=== PATIENT | male | born 1970 | race Caucasian/White ===

== ENCOUNTER 2019-03-31 12:09 | Inpatient (IN) | payer BC ==
[~2019-03-31] VITALS: Ht 182.9 cm; Wt 92.1 kg
[2019-03-31 14:48] VITALS: BP 135/92
--- NOTE | 2019-03-31 14:54 | NUR ---
Patient arrived to [facility] at 1440. Very pleasant, A&O x 4, VS obtained, at bedside. Text page sent to PCP to announce pt.'s arrival. Will continue to monitor.
[2019-03-31] MEDS ORDERED: ACETAMINOPHEN 325 MG TABLET. PO PRN (15:30)
[2019-03-31] MEDS ORDERED: METHOCARBAMOL 500 MG TABLET PO PRN (15:30)
[2019-03-31] MEDS ORDERED: PSEUDOEPHEDRINE ER 120 MG TABLET.ER. PO PRN (15:30)
[2019-03-31] MEDS ORDERED: PIP/TAZO PER PHARMACY MC PRN (15:30)
[2019-03-31] MEDS ORDERED: ONDANSETRON PF 4 MG/2 ML VIAL. IV PRN (15:30)
[2019-03-31] MEDS ORDERED: ALBUTEROL SULFATE 2.5 MG/3 ML NEBU. NEB PRN (15:30)
[2019-03-31] MEDS ORDERED: HEPARIN for SUB-Q USE 5,000 UNIT/ML VIAL. SQ SCH (16:00)
[2019-03-31] MEDS ORDERED: IPRATRPIUM/ALBUTEROL 0.5/2.5MG 3 ML NEBU. NEB SCH (16:00)
[2019-03-31] MEDS: VANCOMYCIN PER PHARMACY MC PRN (16:23)
--- NOTE | 2019-03-31 16:28 | NUR ---
Pharmacy Vancomycin Dosing Note S:Consulted to monitor and dose vancomycin started 03/27/19. O:LILO HYATT is a 48 year old M with Pneumonia . Height: feet, inches Weight: kg [place] Body Weight: 77.60 Adjusted Body Weight: 86.00 Dosing Weight: Other Antibiotics: LABS: Last BUN: 11 Last Creatinine: 1.1 Creatinine Clearance: 97.7 mL/min Last WBC: 13.8 Last Procalcitonin: <0.10 Tmax (past 24 hours): 98.9 Microbiology: GRAM STAIN WHITE BLOOD CELLS Final None seen GRAM STAIN EPITHELIAL CELLS Final Few GRAM STAIN RESULT 1 Final Comment Moderate amount of yeast seen. GRAM STAIN RESULT 2 Final Comment Few gram positive cocci GRAM STAIN RESULT 3 Final Comment Few gram positive rods. GRAM STAIN RESULT 4 Final Comment Gram negative coccobacilli GRAM STAIN EVALUATION Final Comment This specimen is of good quality and is acceptable for routine bacterial culture. I/O: 2286/ Drug Levels: Last Trough level: 18.3 on 03/31/19 at 0430 Last dose given 03/31/19 at 1329 Vancomycin Dosing: Loading Dose: x1 Dosing Weight: Target Trough: 15-20 A: Based on previous therapy and trough levels obtained from [facility]: P: 1. Continue Vancomycin 1500 mg IV q8h. 2. Follow up trough levels as needed. 3. Pharmacy will continue to monitor, follow and adjust therapy as needed. Kalpesh Argueta [facility], 03/31/19 [id number]
[2019-03-31] MEDS: PANTOPRAZOLE 40 MG TABLET.DR. PO SCH (16:30)
--- NOTE | 2019-03-31 16:48 | PDOC1 ---
History and Physical Date of Admission Date of Admission DATE: 03/31/19 TIME: 16:46 History of Present Illness History of Present Illness Mr. Bailey has been not feeling well for over 2 months. He had recent pneumonia, and was hospitalized at [facility], sent home and returned for IV abx, IV cefepime BID for 1 week, never really felt well, and then was readmitted to [facility] 4 days ago, with cough and dyspnea with fever and chills. 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 he feels a little better after breathing treatments Past Medical History Cardiovascular: No pertinent hx Pulmonary: Asthma, Bronchitis, COPD GI: No pertinent hx Heme/Onc: No pertinent hx Hepatobiliary: No pertinent hx Psych: No pertinent hx Musculoskeletal: low back pain Rheumatologic: No pertinent hx Past Surgical History Past Surgical History: Other (spinal stimulator for pain) Family History Family History: No Significant Social History Smoke: No ALCOHOL: none Drugs: None Current Medications Current Medications Current Medications Acetaminophen (Tylenol) 650 mg PRN Q6HRS PRN PO MILD PAIN 1-3; Start 03/31/19 at 15:30 Albuterol Sulfate (Ventolin Neb Soln) 2.5 mg PRN Q4HRS PRN NEB SHORTNESS OF BREATH; Start 03/31/19 at 15:30 Benzonatate (Tessalon Perle) 100 mg PRN TID PRN PO cough; Start 03/31/19 at 15:30 Cetirizine HCl (ZyrTEC) 5 mg DAILY PO ; Start 04/01/19 at 09:00 Heparin Sodium (Porcine) (Heparin Sodium) 5,000 unit Q8HRS SQ ; Start 03/31/19 at 16:00 Albuterol/ Ipratropium (Duoneb) 3 ml RTQID NEB ; Start 03/31/19 at 16:00; Stop 03/31/19 at 16:23; Status DC Lactobacillus Rhamnosus (Culturelle) 1 cap BID PO ; Start 03/31/19 at 21:00 Meloxicam (Mobic) 7.5 mg DAILY PO ; Start 04/01/19 at 09:00 Methocarbamol (Robaxin) 500 mg PRN Q8HRS PRN PO MUSCLE SPASMS; Start 03/31/19 at 15:30 Ondansetron HCl (Zofran) 4 mg PRN Q8HRS PRN IV NAUSEA/VOMITING; Start 03/31/19 at 15:30 Pantoprazole Sodium (Protonix) 40 mg DAILYAC PO ; Start 03/31/19 at 16:30 Piperacillin Sod/ Tazobactam Sod (Zosyn Per Pharmacy) 1 each PRN DAILY PRN MC SEE COMMENTS; Start 03/31/19 at 15:30 Pseudoephedrine HCl (Sudafed 12-Hour) 120 mg PRN QHS PRN PO NASAL CONGESTION; Start 03/31/19 at 15:30 Vancomycin HCl (Vanco Per Pharmacy) 1 each PRN DAILY PRN MC SEE COMMENTS Last administered on 03/31/19at 16:23; Start 03/31/19 at 15:30 Guaifenesin (Mucinex) 600 mg BID PO ; Start 03/31/19 at 21:00 Methylprednisolone Sodium Succinate (SOLU-Medrol 125MG VIAL) 60 mg BID76 IV ; Start 03/31/19 at 18:00 Tramadol HCl (Ultram) 100 mg PRN Q6HRS PRN PO MODERATE PAIN; Start 03/31/19 at 15:30 Trazodone HCl (Desyrel) 200 mg PRN QHS PRN PO INSOMNIA; Start 03/31/19 at 15:30 Piperacillin Sod/ Tazobactam Sod 4.5 gm/Sodium Chloride 100 ml @ 200 mls/hr Q6HRS IV ; Start 03/31/19 at 18:00 Vancomycin HCl 1.5 gm/Sodium Chloride 500 ml @ 250 mls/hr Q8H IV ; Start 03/31/19 at 21:00 Albuterol/ Ipratropium (Duoneb) 3 ml Q4HRS W/A NEB ; Start 03/31/19 at 18:00 Allergies Allergies: Coded Allergies: morphine (Verified Adverse Reaction, Intermediate, Vomiting. Almost passed out., 03/31/19) ROS General: No: Chills, Night Sweats, Fatigue, Malaise, Appetite, Other PSYCHOLOGICAL ROS: No: Anxiety, Behavioral Disorder, Concentration difficultie, Decreased libido, Depression, Disorientation, Hallucinations, Hostility, Irritablity, Memory difficulties, Mood Swings, Obsessive thoughts, Physical abuse, Sexual abuse, Sleep disturbances, Suicidal ideation, Other Eyes: No Blurry vision, No Decreased vision, No Double vision, No Dry eyes, No Excessive tearing, No Eye Pain, No Itchy Eyes, No Loss of vision, No Photophobia, No Scotomata, No Uses contacts, No Uses glasses, No Other HEENT: No: Heacaches, Visual Changes, Hearing change, Nasal congestion, Nasal discharge, Oral lesions, Sinus pain, Sore Throat, Epistaxis, Sneezing, Snoring, Tinnitus, Vertigo, Vocal changes, Other Respiratory: No: Cough, Hemoptysis, Orthopnea, Pleuritic Pain, Shortness of breath, SOB with excertion, Sputum Changes, Stridor, Tachypnea, Wheezing, Other Cardiovascular: No Chest Pain, No Palpitations, No Orthopnea, No Paroxysmal Noc. Dyspnea, No Edema, No Lt Headedness, No Other Gastrointestinal: No Nausea, No Vomiting, No Abdominal Pain, No Diarrhea, No Constipation, No Melena, No Hematochezia, No Other Genitourinary: No Dysuria, No Frequency, No Incontinence, No Hematuria, No Retention, No Discharge, No Urgency, No Pain, No Flank Pain, No Other, No , No , No , No , No , No , No Musculoskeletal: No Gait Disturbance, No Joint Pain, No Joint Stiffness, No Joint Swelling, No Muscle Pain, No Muscular Weakness, No Pain In:, No Swelling In:, No Other Neurological: No Behavorial Changes, No Bowel/Bladder ControlChng, No Confusion, No Dizziness, No Gait Disturbance, No Headaches, No Impaired Coord/balance, No Memory Loss, No Numbness/Tingling, No Seizures, No Speech Problems, No Tremors, No Visual Changes, No Weakness, No Other Skin: No Dry Skin, No Eczema, No Hair Changes, No Lumps, No Mole Changes, No Mottling, No Nail Changes, No Pruritus, No Rash, No Skin Lesion Changes, No Other, No Acne Physical Exam General: Alert, Oriented X3, mild distress HEENT: EOMI, Mucous membr. moist/pink Lungs: Other (rales, end wheeze, low volume, ) Heart: no gallops, no murmurs Rectal Exam: not examined Extremities: No clubbing, No cyanosis, No edema, Normal pulses Skin: No rashes, No breakdown, No significant lesion Neuro: Normal speech, Strength at 5/5 X4 ext, Normal tone, Sensation intact Psych/Mental Status: Mental status NL, Mood NL Vitals Vitals Vital Signs Date Time Temp Pulse Resp B/P (MAP) Pulse Ox O2 Delivery O2 Flow Rate FiO2 03/31/19 16:34 92 Nasal Cannula 3.0 03/31/19 14:48 99.0 106 22 135/92 (106) 99.0 VTE Prophylaxis Ordered VTE Prophylaxis Devices: No VTE Pharmacological Prophylaxi: Yes Assessment/Plan Assessment/Plan acute hypoxic respiratory failure pneumonia, recurrent and worsening, will add levaquin for HCAP coverage COPD with acute bronchitis, nebs and steroids sepsis, accepted in transfer from [facility] GIANA BALLARD MD March 31, 2019 16:48
[2019-03-31] MEDS: guaiFENesin/CODEINE 100mg/10mg 5 ML LIQUID PO PRN (18:08)
[2019-03-31] MEDS: BENZONATATE 100 MG CAPSULE. PO PRN (18:09)
[2019-03-31] MEDS: methylPREDNISolone SOD SUCC PF 125 MG/2 ML VIAL. IV SCH (18:14)
[2019-03-31] MEDS: PIPERACILLIN/TAZOBACTAM 4.5 GM in IV NORMAL SALINE 100ML 100 ML IV SCH (18:16)
[2019-03-31 19:15] VITALS: BP 140/88
[2019-03-31] MEDS ORDERED: ENOXAPARIN 40 MG/0.4 ML SYRINGE. SQ SCH (20:00)
[2019-03-31] MEDS: IPRATRPIUM/ALBUTEROL 0.5/2.5MG 3 ML NEBU. NEB SCH ×2 (21:35→22:00)
[2019-03-31] MEDS: LINEZOLID 600 MG TABLET PO SCH (21:50)
[2019-03-31] MEDS: LACTOBACILLUS RHAMNOSUS GG 1 CAPSULE. PO SCH ×2 (21:50→22:04)
[2019-03-31] MEDS: VANCOMYCIN 1.5 GM in IV NORMAL SALINE 500ML BAG 500 ML IV SCH (22:04)
[2019-03-31] MEDS: traMADol 50 MG TABLET PO PRN (22:07)
[2019-03-31] MEDS: traZODone 100 MG TABLET. PO PRN (22:08)
[2019-03-31 23:15] VITALS: BP 135/84
[2019-04-01] MEDS: BENZONATATE 100 MG CAPSULE. PO PRN ×3 (02:24→21:33)
[2019-04-01] MEDS: guaiFENesin/CODEINE 100mg/10mg 5 ML LIQUID PO PRN ×4 (02:24→21:33)
[2019-04-01] MEDS: PIPERACILLIN/TAZOBACTAM 4.5 GM in IV NORMAL SALINE 100ML 100 ML IV SCH ×4 (02:25→17:35)
[2019-04-01 03:20] VITALS: BP 149/94
[2019-04-01 04:13] LABS: BASO % 0 % (0-3); EOS % 0 % (0-3); HEMATOCRIT 35.4 % (39.0-53.0); HEMOGLOBIN 11.7 g/dL (13.0-17.5); LYMPH # 0.9 x10^3/uL (1.0-4.8); LYMPH % 7 % (24-48); MEAN CORPUSCULAR HEMOGLOBIN 30 pg (25-35); MEAN CORPUSCULAR HGB CONC 33 g/dL (31-37); MEAN CORPUSCULAR VOLUME 91 fL (79-100); MONO # 0.6 x10^3/uL (0.0-1.1); MONO % 5 % (0-9); NEUT # 10.7 x10^3uL (1.8-7.7); NEUT % 87 % (31-73); PLATELET COUNT 360 x10^3/uL (140-400); RED BLOOD COUNT 3.89 x10^6/uL (4.30-5.70); RED CELL DISTRIBUTION WIDTH 13.2 % (11.5-14.5); WHITE BLOOD COUNT 12.2 x10^3/uL (4.0-11.0)
[2019-04-01 04:32] LABS: ALBUMIN/GLOBULIN RATIO 0.4 (1.0-1.7); CALCIUM 8.3 mg/dL (8.5-10.1); CREATININE 1.1 mg/dL (0.7-1.3); GFR 70.9; POTASSIUM 3.4 mmol/L (3.5-5.1); TOTAL BILIRUBIN 0.4 mg/dL (0.2-1.0); TOTAL PROTEIN 6.7 g/dL (6.4-8.2)
[2019-04-01] MEDS: VANCOMYCIN 1.5 GM in IV NORMAL SALINE 500ML BAG 500 ML IV SCH (05:39)
[2019-04-01] MEDS: methylPREDNISolone SOD SUCC PF 125 MG/2 ML VIAL. IV SCH ×2 (05:50→17:35)
[2019-04-01 07:00] VITALS: BP 143/87
--- NOTE | 2019-04-01 07:40 | RAD ---
Portable chest, 03/31/2019, 5:37 PM: HISTORY: Pneumonia Comparison is made to an outside study from earlier in the day. The heart size is normal. There are moderate patchy bilateral pulmonary infiltrates. Underlying emphysematous changes are present. No pleural fluid is seen. No new abnormality is detected. Spinal stimulator lead extending to the lower thoracic spinal canal. IMPRESSION: Moderate unchanged patchy bilateral pulmonary infiltrates compatible with pneumonia. Electronically signed by: Italo Hernandez MD (04/01/2019 7:37 AM) [facility]
[2019-04-01] MEDS: LACTOBACILLUS RHAMNOSUS GG 1 CAPSULE. PO SCH (08:24)
[2019-04-01] MEDS: MELOXICAM 7.5 MG TABLET PO SCH (08:25)
[2019-04-01] MEDS: PANTOPRAZOLE 40 MG TABLET.DR. PO SCH (08:25)
[2019-04-01] MEDS: traMADol 50 MG TABLET PO PRN ×4 (08:25→21:50)
[2019-04-01] MEDS: CETIRIZINE HCL 10 MG TABLET. PO SCH (08:26)
[2019-04-01] MEDS: IPRATRPIUM/ALBUTEROL 0.5/2.5MG 3 ML NEBU. NEB SCH ×5 (08:35→20:47)
[2019-04-01] MEDS: VANCOMYCIN PER PHARMACY MC PRN (09:39)
[2019-04-01] MEDS ORDERED: POTASSIUM CHLORIDE 20 MEQ TABLET.ER. PO ONE (10:00)
--- NOTE | 2019-04-01 10:03 | CONS ---
DATE OF CONSULTATION: 04/01/2019 PULMONARY CONSULTATION: ATTENDING PHYSICIAN: Dr. Potter. REASON FOR CONSULTATION: Pneumonia, recurrent. HISTORY OF PRESENT ILLNESS: The patient is 48 years old who has history of tobacco use up to 1-1/2 pack per day, he quit in 2012. 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 The patient states he was not feeling well at the middle of this month and was hospitalized at [facility]. I have reviewed the CT chest from 03/18/2019 and it shows bilateral patchy infiltrates and some reactive adenopathy. He says he was treated with antibiotics. Then, he went home, he felt better, but while he was on IV antibiotics at home, he said that his symptoms reoccurred and was hospitalized again. He had two more CAT scans done which were both reviewed by me, one on 03/27/2019 and another one was 03/29/2019 with PE protocol. Both CAT scans have shown worsening bilateral infiltrates. He has evidence of emphysematous blebs. There was no evidence of pulmonary embolism. As a result, the patient has been transferred from [facility] for further care. The patient has seen Dr. Root at [place], who is his core machine tender, last time was 4 years ago. He denies any night sweats. No fever, no chills. Denies any chest pains. He says he is intentionally trying to lose some weight. He has no birds or cats at home. PAST MEDICAL HISTORY: Significant for history of asthma/COPD. ALLERGIES: MORPHINE. PAST SURGICAL HISTORY: Had a spinal stimulator for pain. REVIEW OF SYSTEMS: A 12-point system obtained. Pertinent positives discussed in my present illness, otherwise noncontributory. All systems that were negative were reviewed as well. SOCIAL HISTORY: He used to drink alcohol on a regular basis, now once a week. History of tobacco use for 20 some years up to 1-1/2 pack per day, quit in 2012. He worked as a grain elevator and had prolonged exposure to grain dust. PHYSICAL EXAMINATION: VITAL SIGNS: Reviewed. He is afebrile with a T-max of 99. Pulse ox is 93% on 4 liters. HEENT: Sclerae nonicteric. NECK: Supple. LUNGS: With few crackles at the right base and minimally in the left base. CARDIOVASCULAR: Regular rhythm. ABDOMEN: Soft, nontender. EXTREMITIES: With no pitting edema. LABORATORY DATA: Reviewed. White cell count 12.2, hemoglobin 11.7, platelets are 360. BUN and creatinine is 15 and 1.1. IMPRESSION: 1. The patient with progressive bilateral infiltrates along with emphysematous blebs and reactive adenopathy since the 15th of this month. He was hospitalized and treated with broad-spectrum antibiotics without any clinical improvement. His CTs have shown worsening infiltrates. The differential diagnosis could be broad. 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 Possibility of bronchiolitis obliterans organizing pneumonia would also be a consideration. He would benefit from a diagnostic bronchoscopy with cultures. 2. Underlying chronic obstructive pulmonary disease. 3. Underlying alcoholism, also may be contributing to recurrent pneumonias. RECOMMENDATIONS: 1. Continue with present broad-spectrum antibiotics. 2. Obtain hypersensitivity pneumonitis panel if available in-house. Otherwise, do as an outpatient. 3. Consider diagnostic bronchoscopy. 4. Obtain sedimentation rate. 5. Continue steroids and see the response to treatment. 6. Follow Infectious Disease recommendations as well. 7. Discussed with the patient. He agrees to proceed with the bronchoscopy. DAMARI GOULD MD DR: CHRISTIAN/yanique JOB#: [id number] / [id number] [place]
--- NOTE | 2019-04-01 10:06 | PDOC ---
Infectious Disease Note Vital Signs: Vital Signs Vital Signs Date Time Temp Pulse Resp B/P (MAP) Pulse Ox O2 Delivery O2 Flow Rate FiO2 04/01/19 08:30 93 Nasal Cannula 4.0 04/01/19 07:00 98.8 87 18 143/87 (105) 98.8 Medications: Inpatient Meds: Current Medications Medications (Trade) Dose Ordered Sig/Lorie Start Time Stop Time Status Last Admin Dose Admin Acetaminophen (Tylenol) 650 mg PRN Q6HRS PRN 03/31/19 15:30 Albuterol Sulfate (Ventolin Neb Soln) 2.5 mg PRN Q4HRS PRN 03/31/19 15:30 Albuterol/ Ipratropium (Duoneb) 3 ml Q4HRS W/A 03/31/19 18:00 04/01/19 08:35 3 ML Benzonatate (Tessalon Perle) 100 mg PRN TID PRN 03/31/19 15:30 04/01/19 08:24 100 MG Cetirizine HCl (ZyrTEC) 5 mg DAILY 04/01/19 09:00 04/01/19 08:26 5 MG Enoxaparin Sodium (Lovenox 40mg Syringe) 40 mg Q24H 03/31/19 20:00 04/01/19 09:07 DC 03/31/19 22:05 40 MG Enoxaparin Sodium (Lovenox Per Pharmacy Prophylaxis Dosing) 1 each PRN DAILY PRN 03/31/19 18:45 UNV Guaifenesin (Mucinex) 600 mg BID 03/31/19 21:00 04/01/19 08:25 600 MG Guaifenesin/ Codeine Phosphate (Robitussin Ac) 10 ml PRN Q6HRS PRN 03/31/19 16:45 04/01/19 08:26 10 ML Heparin Sodium (Porcine) (Heparin Sodium) 5,000 unit Q8HRS 03/31/19 16:00 03/31/19 18:22 DC 03/31/19 18:00 5,000 UNIT Lactobacillus Rhamnosus (Culturelle) 1 cap BID 03/31/19 21:00 04/01/19 08:24 1 CAP Levofloxacin (Levaquin) 750 mg DAILY16 04/01/19 16:00 Meloxicam (Mobic) 7.5 mg DAILY 04/01/19 09:00 04/01/19 08:25 7.5 MG Methocarbamol (Robaxin) 500 mg PRN Q8HRS PRN 03/31/19 15:30 Methylprednisolone Sodium Succinate (SOLU-Medrol 125MG VIAL) 60 mg BID76 03/31/19 18:00 04/01/19 05:50 60 MG Ondansetron HCl (Zofran) 4 mg PRN Q8HRS PRN 03/31/19 15:30 Pantoprazole Sodium (Protonix) 40 mg DAILYAC 03/31/19 16:30 04/01/19 08:25 40 MG Piperacillin Sod/ Tazobactam Sod (Zosyn Per Pharmacy) 1 each PRN DAILY PRN 03/31/19 15:30 Piperacillin Sod/ Tazobactam Sod 4.5 gm/Sodium Chloride 100 ml @ 200 mls/hr Q6HRS 03/31/19 18:00 04/01/19 05:39 200 MLS/HR Potassium Chloride (Klor-Con) 40 meq 1X ONCE 04/01/19 10:00 04/01/19 10:01 Pseudoephedrine HCl (Sudafed 12-Hour) 120 mg PRN QHS PRN 03/31/19 15:30 Tramadol HCl (Ultram) 100 mg PRN Q6HRS PRN 03/31/19 15:30 04/01/19 08:25 100 MG Trazodone HCl (Desyrel) 200 mg PRN QHS PRN 03/31/19 15:30 03/31/19 22:08 200 MG Vancomycin HCl (Vanco Per Pharmacy) 1 each PRN DAILY PRN 03/31/19 15:30 04/01/19 09:39 1 EACH Vancomycin HCl 1.5 gm/Sodium Chloride 500 ml @ 250 mls/hr Q8H 03/31/19 21:00 04/01/19 05:39 250 MLS/HR Labs: Lab Laboratory Tests Test 04/01/19 03:00 White Blood Count 12.2 x10^3/uL (4.0-11.0) Red Blood Count 3.89 x10^6/uL (4.30-5.70) Hemoglobin 11.7 g/dL (13.0-17.5) Hematocrit 35.4 % (39.0-53.0) Mean Corpuscular Volume 91 fL (79-100) Mean Corpuscular Hemoglobin 30 pg (25-35) Mean Corpuscular Hemoglobin Concent 33 g/dL (31-37) Red Cell Distribution Width 13.2 % (11.5-14.5) Platelet Count 360 x10^3/uL (140-400) Neutrophils (%) (Auto) 87 % (31-73) Lymphocytes (%) (Auto) 7 % (24-48) Monocytes (%) (Auto) 5 % (0-9) Eosinophils (%) (Auto) 0 % (0-3) Basophils (%) (Auto) 0 % (0-3) Neutrophils # (Auto) 10.7 x10^3uL (1.8-7.7) Lymphocytes # (Auto) 0.9 x10^3/uL (1.0-4.8) Monocytes # (Auto) 0.6 x10^3/uL (0.0-1.1) Eosinophils # (Auto) 0.0 x10^3/uL (0.0-0.7) Basophils # (Auto) 0.0 x10^3/uL (0.0-0.2) Sodium Level 141 mmol/L (136-145) Potassium Level 3.4 mmol/L (3.5-5.1) Chloride Level 104 mmol/L (98-107) Carbon Dioxide Level 25 mmol/L (21-32) Anion Gap 12 (6-14) Blood Urea Nitrogen 15 mg/dL (8-26) Creatinine 1.1 mg/dL (0.7-1.3) Estimated GFR (Cockcroft-Gault) 70.9 BUN/Creatinine Ratio 14 (6-20) Glucose Level 164 mg/dL (70-99) Calcium Level 8.3 mg/dL (8.5-10.1) Total Bilirubin 0.4 mg/dL (0.2-1.0) Aspartate Amino Transf (AST/SGOT) 16 U/L (15-37) Alanine Aminotransferase (ALT/SGPT) 21 U/L (16-63) Alkaline Phosphatase 68 U/L (46-116) Total Protein 6.7 g/dL (6.4-8.2) Albumin 2.0 g/dL (3.4-5.0) Albumin/Globulin Ratio 0.4 (1.0-1.7) Objective: Assessment: Acute resp failure Multilobar pneumonia nonresolving COPD H/O asthma leucocytosis was on steroids Anemia mild Plan: Plan of Care cont zosyn, levaquin will dc iv vanc, BC neg at [facility] start empiric zyvox f/u labs and cults Pulm consulted urine legionella and strep pneum ag STAS MAIN MD April 01, 2019 10:06
[2019-04-01] MEDS ORDERED: DOXYCYCLINE HYCLATE 100 MG TABLET PO SCH (10:30)
--- NOTE | 2019-04-01 10:55 | NUR ---
SW following pt for anticipated dc needs. Chart reviewed. Pt lives at home and ID currently following pt. No discharge recommendations noted at this time.
[2019-04-01 11:00] VITALS: BP 130/85
[2019-04-01] MEDS: LINEZOLID 600 MG TABLET PO SCH (11:20)
--- NOTE | 2019-04-01 11:46 | PDOC ---
PROGRESS NOTES Chief Complaint Chief Complaint 1. Acute hypoxic respiratory failure in an ex smoker-quit 2012 Differentials include, BOOP, hypersensitivity pneumonitis given 25 years of occupational hazard 2. Underlying COPD asthma type 3. Underlying alcoholism 4. Bullae on CT chest [place] 5. Neg BC in [place] History of Present Illness History of Present Illness Feels better Colleague was able to elicit a 25 year occupational hazard history He quit cigarettes 2012 He used to run miles, just maybe a week ago HAs Przo air at home which he SELDOM uses PLAN: Agree with diagnostic bronch tmr Nothing by mouth post midnight Continue other pulmonary meds ID was consulted-to DC vancomycin-blood cultures [place] negative Continue Levaquin and Zosyn WBC 12, potassium mildly low 3.2 replace PO x 1 Discussed with patient and Agreeable with plan of care- gives consent to bronch Vitals Vitals Vital Signs Date Time Temp Pulse Resp B/P (MAP) Pulse Ox O2 Delivery O2 Flow Rate FiO2 04/01/19 10:00 Room Air 04/01/19 08:30 93 4.0 04/01/19 07:00 98.8 87 18 143/87 (105) 98.8 Physical Exam General: Alert, Oriented X3, mild distress Heart: Regular rate, Normal S1, Normal S2 Lungs: Clear Abdomen: Normal bowel sounds, Soft, No tenderness, No hepatosplenomegaly Extremities: No clubbing, No cyanosis, No edema, Normal pulses Skin: No rashes, No breakdown, No significant lesion Labs LABS Laboratory Tests Test 04/01/19 03:00 White Blood Count 12.2 x10^3/uL (4.0-11.0) Red Blood Count 3.89 x10^6/uL (4.30-5.70) Hemoglobin 11.7 g/dL (13.0-17.5) Hematocrit 35.4 % (39.0-53.0) Mean Corpuscular Volume 91 fL (79-100) Mean Corpuscular Hemoglobin 30 pg (25-35) Mean Corpuscular Hemoglobin Concent 33 g/dL (31-37) Red Cell Distribution Width 13.2 % (11.5-14.5) Platelet Count 360 x10^3/uL (140-400) Neutrophils (%) (Auto) 87 % (31-73) Lymphocytes (%) (Auto) 7 % (24-48) Monocytes (%) (Auto) 5 % (0-9) Eosinophils (%) (Auto) 0 % (0-3) Basophils (%) (Auto) 0 % (0-3) Neutrophils # (Auto) 10.7 x10^3uL (1.8-7.7) Lymphocytes # (Auto) 0.9 x10^3/uL (1.0-4.8) Monocytes # (Auto) 0.6 x10^3/uL (0.0-1.1) Eosinophils # (Auto) 0.0 x10^3/uL (0.0-0.7) Basophils # (Auto) 0.0 x10^3/uL (0.0-0.2) Sodium Level 141 mmol/L (136-145) Potassium Level 3.4 mmol/L (3.5-5.1) Chloride Level 104 mmol/L (98-107) Carbon Dioxide Level 25 mmol/L (21-32) Anion Gap 12 (6-14) Blood Urea Nitrogen 15 mg/dL (8-26) Creatinine 1.1 mg/dL (0.7-1.3) Estimated GFR (Cockcroft-Gault) 70.9 BUN/Creatinine Ratio 14 (6-20) Glucose Level 164 mg/dL (70-99) Calcium Level 8.3 mg/dL (8.5-10.1) Total Bilirubin 0.4 mg/dL (0.2-1.0) Aspartate Amino Transf (AST/SGOT) 16 U/L (15-37) Alanine Aminotransferase (ALT/SGPT) 21 U/L (16-63) Alkaline Phosphatase 68 U/L (46-116) Total Protein 6.7 g/dL (6.4-8.2) Albumin 2.0 g/dL (3.4-5.0) Albumin/Globulin Ratio 0.4 (1.0-1.7) Review of Systems Review of Systems A 14 point ROS was completed with the following noted as positive: Other systems reviewed and negative. \CONSTITUTIONAL: No fever or chills EYES: No recent changes SKIN: No rash or itching CARDIOVASCULAR: No chest pain, syncope, palpitations, or edema RESPIRATORY: GASTROINTESTINAL: No nausea, vomiting or abdominal pain NEUROLOGICAL: No headaches or weakness ENDOCRINE: No cold or heat intolerance GENITOURINARY: No urgency or frequency of urination MUSCULOSKELETAL: No back pain or joint pain LYMPHATICS: No enlarged lymph nodes PSYCHIATRIC: No anxiety or depression Comment Review of Relevant I have reviewed the following items kim (where applicable) has been applied. Labs Laboratory Tests Test 04/01/19 03:00 White Blood Count 12.2 x10^3/uL (4.0-11.0) Red Blood Count 3.89 x10^6/uL (4.30-5.70) Hemoglobin 11.7 g/dL (13.0-17.5) Hematocrit 35.4 % (39.0-53.0) Mean Corpuscular Volume 91 fL (79-100) Mean Corpuscular Hemoglobin 30 pg (25-35) Mean Corpuscular Hemoglobin Concent 33 g/dL (31-37) Red Cell Distribution Width 13.2 % (11.5-14.5) Platelet Count 360 x10^3/uL (140-400) Neutrophils (%) (Auto) 87 % (31-73) Lymphocytes (%) (Auto) 7 % (24-48) Monocytes (%) (Auto) 5 % (0-9) Eosinophils (%) (Auto) 0 % (0-3) Basophils (%) (Auto) 0 % (0-3) Neutrophils # (Auto) 10.7 x10^3uL (1.8-7.7) Lymphocytes # (Auto) 0.9 x10^3/uL (1.0-4.8) Monocytes # (Auto) 0.6 x10^3/uL (0.0-1.1) Eosinophils # (Auto) 0.0 x10^3/uL (0.0-0.7) Basophils # (Auto) 0.0 x10^3/uL (0.0-0.2) Sodium Level 141 mmol/L (136-145) Potassium Level 3.4 mmol/L (3.5-5.1) Chloride Level 104 mmol/L (98-107) Carbon Dioxide Level 25 mmol/L (21-32) Anion Gap 12 (6-14) Blood Urea Nitrogen 15 mg/dL (8-26) Creatinine 1.1 mg/dL (0.7-1.3) Estimated GFR (Cockcroft-Gault) 70.9 BUN/Creatinine Ratio 14 (6-20) Glucose Level 164 mg/dL (70-99) Calcium Level 8.3 mg/dL (8.5-10.1) Total Bilirubin 0.4 mg/dL (0.2-1.0) Aspartate Amino Transf (AST/SGOT) 16 U/L (15-37) Alanine Aminotransferase (ALT/SGPT) 21 U/L (16-63) Alkaline Phosphatase 68 U/L (46-116) Total Protein 6.7 g/dL (6.4-8.2) Albumin 2.0 g/dL (3.4-5.0) Albumin/Globulin Ratio 0.4 (1.0-1.7) Laboratory Tests Test 04/01/19 03:00 White Blood Count 12.2 x10^3/uL (4.0-11.0) Red Blood Count 3.89 x10^6/uL (4.30-5.70) Hemoglobin 11.7 g/dL (13.0-17.5) Hematocrit 35.4 % (39.0-53.0) Mean Corpuscular Volume 91 fL (79-100) Mean Corpuscular Hemoglobin 30 pg (25-35) Mean Corpuscular Hemoglobin Concent 33 g/dL (31-37) Red Cell Distribution Width 13.2 % (11.5-14.5) Platelet Count 360 x10^3/uL (140-400) Neutrophils (%) (Auto) 87 % (31-73) Lymphocytes (%) (Auto) 7 % (24-48) Monocytes (%) (Auto) 5 % (0-9) Eosinophils (%) (Auto) 0 % (0-3) Basophils (%) (Auto) 0 % (0-3) Neutrophils # (Auto) 10.7 x10^3uL (1.8-7.7) Lymphocytes # (Auto) 0.9 x10^3/uL (1.0-4.8) Monocytes # (Auto) 0.6 x10^3/uL (0.0-1.1) Eosinophils # (Auto) 0.0 x10^3/uL (0.0-0.7) Basophils # (Auto) 0.0 x10^3/uL (0.0-0.2) Sodium Level 141 mmol/L (136-145) Potassium Level 3.4 mmol/L (3.5-5.1) Chloride Level 104 mmol/L (98-107) Carbon Dioxide Level 25 mmol/L (21-32) Anion Gap 12 (6-14) Blood Urea Nitrogen 15 mg/dL (8-26) Creatinine 1.1 mg/dL (0.7-1.3) Estimated GFR (Cockcroft-Gault) 70.9 BUN/Creatinine Ratio 14 (6-20) Glucose Level 164 mg/dL (70-99) Calcium Level 8.3 mg/dL (8.5-10.1) Total Bilirubin 0.4 mg/dL (0.2-1.0) Aspartate Amino Transf (AST/SGOT) 16 U/L (15-37) Alanine Aminotransferase (ALT/SGPT) 21 U/L (16-63) Alkaline Phosphatase 68 U/L (46-116) Total Protein 6.7 g/dL (6.4-8.2) Albumin 2.0 g/dL (3.4-5.0) Albumin/Globulin Ratio 0.4 (1.0-1.7) Medications Current Medications Acetaminophen (Tylenol) 650 mg PRN Q6HRS PRN PO MILD PAIN 1-3; Start 03/31/19 at 15:30 Albuterol Sulfate (Ventolin Neb Soln) 2.5 mg PRN Q4HRS PRN NEB SHORTNESS OF BREATH; Start 03/31/19 at 15:30 Benzonatate (Tessalon Perle) 100 mg PRN TID PRN PO cough 1ST CHOICE Last administered on 04/01/19at 08:24; Start 03/31/19 at 15:30 Cetirizine HCl (ZyrTEC) 5 mg DAILY PO Last administered on 04/01/19at 08:26; Start 04/01/19 at 09:00 Heparin Sodium (Porcine) (Heparin Sodium) 5,000 unit Q8HRS SQ Last administered on 03/31/19at 18:00; Start 03/31/19 at 16:00; Stop 03/31/19 at 18:22; Status DC Albuterol/ Ipratropium (Duoneb) 3 ml RTQID NEB ; Start 03/31/19 at 16:00; Stop 03/31/19 at 16:23; Status DC Lactobacillus Rhamnosus (Culturelle) 1 cap BID PO Last administered on 04/01/19 08:24; Start 03/31/19 at 21:00 Meloxicam (Mobic) 7.5 mg DAILY PO Last administered on 04/01/19 08:25; Start 04/01/19 at 09:00 Methocarbamol (Robaxin) 500 mg PRN Q8HRS PRN PO MUSCLE SPASMS; Start 03/31/19 at 15:30 Ondansetron HCl (Zofran) 4 mg PRN Q8HRS PRN IV NAUSEA/VOMITING; Start 03/31/19 at 15:30 Pantoprazole Sodium (Protonix) 40 mg DAILYAC PO Last administered on 04/01/19 08:25; Start 03/31/19 at 16:30 Piperacillin Sod/ Tazobactam Sod (Zosyn Per Pharmacy) 1 each PRN DAILY PRN MC SEE COMMENTS; Start 03/31/19 at 15:30 Pseudoephedrine HCl (Sudafed 12-Hour) 120 mg PRN QHS PRN PO NASAL CONGESTION; Start 03/31/19 at 15:30 Vancomycin HCl (Vanco Per Pharmacy) 1 each PRN DAILY PRN MC SEE COMMENTS Last administered on 04/01/19 09:39; Start 03/31/19 at 15:30; Stop 04/01/19 at 09:54; Status DC Guaifenesin (Mucinex) 600 mg BID PO Last administered on 04/01/19 08:25; Start 03/31/19 at 21:00 Methylprednisolone Sodium Succinate (SOLU-Medrol 125MG VIAL) 60 mg BID76 IV Last administered on 04/01/19at 05:50; Start 03/31/19 at 18:00 Tramadol HCl (Ultram) 100 mg PRN Q6HRS PRN PO MODERATE PAIN Last administered on 04/01/19 08:25; Start 03/31/19 at 15:30 Trazodone HCl (Desyrel) 200 mg PRN QHS PRN PO INSOMNIA Last administered on 03/31/19at 22:08; Start 03/31/19 at 15:30 Piperacillin Sod/ Tazobactam Sod 4.5 gm/Sodium Chloride 100 ml @ 200 mls/hr Q6HRS IV Last administered on 04/01/19 05:39; Start 03/31/19 at 18:00 Vancomycin HCl 1.5 gm/Sodium Chloride 500 ml @ 250 mls/hr Q8H IV Last administered on 04/01/19at 05:39; Start 03/31/19 at 21:00; Stop 04/01/19 at 09:53; Status DC Albuterol/ Ipratropium (Duoneb) 3 ml Q4HRS W/A NEB Last administered on 04/01/19at 08:35; Start 03/31/19 at 18:00 Guaifenesin/ Codeine Phosphate (Robitussin Ac) 10 ml PRN Q6HRS PRN PO COUGH 2ND CHOICE Last administered on 04/01/19at 08:26; Start 03/31/19 at 16:45 Levofloxacin (Levaquin) 750 mg 1X ONCE PO Last administered on 03/31/19at 22:04; Start 03/31/19 at 18:15; Stop 03/31/19 at 18:16; Status DC Levofloxacin (Levaquin) 750 mg DAILY16 PO ; Start 04/01/19 at 16:00 Enoxaparin Sodium (Lovenox Per Pharmacy Prophylaxis Dosing) 1 each PRN DAILY PRN MC SEE COMMENTS; Start 03/31/19 at 18:15; Stop 04/01/19 at 09:29; Status DC Enoxaparin Sodium (Lovenox Per Pharmacy Prophylaxis Dosing) 1 each PRN DAILY PRN MC SEE COMMENTS; Start 03/31/19 at 18:45; Status UNV Enoxaparin Sodium (Lovenox 40mg Syringe) 40 mg Q24H SQ Last administered on 03/31/19at 22:05; Start 03/31/19 at 20:00; Stop 04/01/19 at 09:07; Status DC Potassium Chloride (Klor-Con) 40 meq 1X ONCE PO Last administered on 04/01/19at 11:20; Start 04/01/19 at 10:00; Stop 04/01/19 at 10:01; Status DC Linezolid (Zyvox) 600 mg BID PO Last administered on 04/01/19at 11:20; Start 04/01/19 at 10:30 Doxycycline Hyclate (Vibra-Tab) 100 mg BID PO ; Start 04/01/19 at 10:30; Stop 04/01/19 at 10:30; Status DC Vitals/I & O Vital Sign - Last 24 Hours 03/31/19 03/31/19 03/31/19 03/31/19 14:48 16:34 19:15 20:00 Temp 99.0 98.6 99.0 98.6 Pulse 106 110 Resp 22 18 B/P (MAP) 135/92 (106) 140/88 (105) Pulse Ox 91 92 94 O2 Delivery Nasal Cannula Nasal Cannula Nasal Cannula Nasal Cannula O2 Flow Rate 3.0 3.0 4.0 4.0 03/31/19 03/31/19 03/31/19 04/01/19 21:36 22:07 23:15 03:20 Temp 98.8 97.9 98.8 97.9 Pulse 105 107 Resp 18 18 B/P (MAP) 135/84 (101) 149/94 (112) Pulse Ox 93 92 93 O2 Delivery Nasal Cannula Room Air Nasal Cannula Nasal Cannula O2 Flow Rate 4.0 4.0 4.0 04/01/19 04/01/19 04/01/19 04/01/19 07:00 08:25 08:30 10:00 Temp 98.8 98.8 Pulse 87 Resp 18 B/P (MAP) 143/87 (105) Pulse Ox 88 93 O2 Delivery Nasal Cannula Room Air Nasal Cannula Room Air O2 Flow Rate 4.0 4.0 Intake and Output 03/31/19 03/31/19 04/01/19 15:00 23:00 07:00 Intake Total 150 ml 0 ml Balance 150 ml 0 ml WESLEY LEWIS MD April 01, 2019 11:46
[2019-04-01 15:00] VITALS: BP 141/91
[2019-04-01 19:15] VITALS: BP 134/89
[2019-04-01] MEDS: traZODone 100 MG TABLET. PO PRN (21:34)
[2019-04-01 23:47] VITALS: BP 136/89
[2019-04-02] MEDS: PIPERACILLIN/TAZOBACTAM 4.5 GM in IV NORMAL SALINE 100ML 100 ML IV SCH ×5 (01:26→23:32)
[2019-04-02] MEDS: IPRATRPIUM/ALBUTEROL 0.5/2.5MG 3 ML NEBU. NEB SCH ×5 (03:06→20:08)
[2019-04-02 03:32] VITALS: BP 137/90
[2019-04-02 06:01] LABS: CREATININE 0.9 mg/dL (0.7-1.3); GFR 89.3
[2019-04-02] MEDS: methylPREDNISolone SOD SUCC PF 125 MG/2 ML VIAL. IV SCH ×2 (06:12→18:07)
[2019-04-02] MEDS ORDERED: MIDAZOLAM HCL/PF 2 MG/2 ML VIAL. IV PRN (06:30)
[2019-04-02] MEDS ORDERED: LIDOCAINE 1% PF 2 ML VIAL. ID PRN (06:30)
[2019-04-02] MEDS ORDERED: IV RINGERS,LACTATED 1000ML 1,000 ML IV SCH ×2 (06:30→07:00)
[2019-04-02] MEDS ORDERED: fentaNYL PF VIAL 100 MCG/2 ML VIAL IV PRN ×2 (06:30)
[2019-04-02 07:55] VITALS: BP 143/89
[2019-04-02] MEDS ORDERED: LIDOCAINE 2% VISCOUS 100 ML BOTTLE. MM PRN (08:45)
[2019-04-02] MEDS ORDERED: LIDOCAINE 4% TOPICAL 50 ML SOLUTION. MM PRN (08:45)
[2019-04-02] MEDS ORDERED: LIDOCAINE 1% Multi-Dose 20 ML VIAL. INJ PRN (08:45)
[2019-04-02] MEDS ORDERED: EPINEPHrine 1 MG/ML VIAL INJ PRN (08:45)
[2019-04-02] MEDS: LINEZOLID 600 MG TABLET PO SCH ×2 (09:00→21:17)
[2019-04-02] MEDS ORDERED: EPINEPHrine 1 MG/ML VIAL ONE (09:15)
[2019-04-02] MEDS ORDERED: LIDOCAINE 4% TOPICAL 50 ML SOLUTION. ONE (09:15)
[2019-04-02] MEDS ORDERED: LIDOCAINE 2% VISCOUS 100 ML BOTTLE. ONE (09:15)
[2019-04-02] MEDS ORDERED: LIDOCAINE 1% Multi-Dose 20 ML VIAL. ONE (09:15)
--- NOTE | 2019-04-02 09:43 | CONS ---
DATE OF CONSULTATION: 04/01/2019 REFERRING PHYSICIAN: Dr. Potter. REASON FOR CONSULTATION: Nonresolving pneumonia. HISTORY OF PRESENT ILLNESS: A 48-year-old male who has not been feeling well for more than a month. He was admitted at [facility] on 03/27 and was transferred here due to unresolving pneumonia. The patient had been seen by his primary care physician at [place] on 03/04 and was given doxycycline for pneumonia. He did not get better, so he was hospitalized from 03/17 to 03/20 where he got IV antibiotics and then was discharged home on cefepime, which he received from March 20 through the . Since he did not improve, he was rehospitalized at [facility], started on IV vancomycin and Zosyn. He had a CT chest done on 03/29 due to positive D-dimer and bilateral pneumonia, which revealed no pulmonary embolism, no change in consolidative lung infiltrates bilaterally, small left pleural effusion. No change in mediastinal or hilar lymph node adenopathy. On 03/27/2019, CT showed worsening moderate patchy bilateral pulmonary infiltrates, superimposed upon emphysema unchanged, mild mediastinal and bilateral hilar adenopathy. The patient also had requirements of O2 since he became hypoxic for the first time. He quit smoking in 2018. He had been following with an outside folder taper operator at [place] whom he has not seen in the last couple of years. He also has a history of COPD, asthma from working 25 years in [employer] and prolonged exposure to anhydrous ammonia. The patient was transferred to [facility] yesterday for further evaluation and treatment. White count was high at 12k. A chest x-ray showed moderate unchanged patchy bilateral pulmonary infiltrates compatible with pneumonia and ID consult has been requested for antibiotic management. PAST MEDICAL HISTORY: COPD, asthma, bronchitis, chronic low back pain status post spinal stimulator in 2016, low back surgery, inguinal surgery with mesh placement. FAMILY HISTORY: As per HPI. SOCIAL HISTORY: Quit smoking in 2018. No ETOH. No illicit drug use. , at bedside. The patient works in [employer]. CURRENT MEDICATIONS: IV vancomycin and Zosyn. Other medications reviewed in medication list. ALLERGIES: MORPHINE. REVIEW OF SYSTEMS: No fevers, chills, night sweats, has cough with yellowish-green sputum production, no blood. No chest pain with deep breathing. Denies nausea, vomiting, diarrhea, abdominal pain, symptoms, rash, new joint pain, sick contact, runny nose, sore throat, difficulty swallowing, rash. PHYSICAL EXAMINATION: VITAL SIGNS: Temperature 98.8, T-max 99, pulse 87, respiratory rate 18, blood pressure 143/87, oxygen saturation 93% on 4 liters by nasal cannula. GENERAL: Alert and oriented x 3 male lying comfortably in bed, in no acute distress. HEENT: Normocephalic, atraumatic. Oral mucosa moist. No thrush. No oropharyngeal exudate. Dentition fair. Nasal O2. NECK: Supple. No lymphadenopathy. No JVD. LUNGS: Decreased breath sounds with few expiratory rhonchi. HEART: S1, S2. No gallops. No murmurs. ABDOMEN: Soft, nontender, nondistended. No rebound, no guarding. EXTREMITIES: No edema, no cyanosis. DERMATOLOGIC: Warm, dry, no generalized rash. BACK: Noted some curvature. No CVA tenderness. Spinal stimulator site looks okay. Previous back surgery site looks okay. NEUROLOGIC: Alert and oriented x 3, grossly nonfocal. MUSCULOSKELETAL: No joint effusion, no decrease in range of motion. PSYCHIATRIC: Cooperative with appropriate mood and affect. LABORATORY DATA: WBC of 12.2, hemoglobin 11.7, hematocrit 35.4, platelets 360, neutrophils 87, lymphocytes 7, 10.7. Sodium 141, potassium 3.4, chloride 104, bicarbonate 25, BUN 15, creatinine 1.1, glucose 164, calcium 8.3, total bilirubin, AST, ALT, alkaline phosphatase, total protein within normal limits. Albumin 2.0. IMAGIN. Chest x-ray: Moderate unchanged patchy bilateral pulmonary infiltrates compatible with pneumonia. 2. CTA at [facility] from 03/29/2019 shows no pulmonary embolism, no change in consolidative lung infiltrates bilaterally since 03/27/2019. There is new small left pleural effusion, no change in the mediastinal or hilar lymph nodes. IMPRESSION: 1. Acute hypoxic respiratory failure, on nasal O2. 2. Pneumonia, unresolving treated with doxycycline and IV antibiotics from 03/17 through 03/20 at [facility] followed by cefepime from 03/20 through 03/27, readmitted with worsening symptoms and persistent infiltrates Now on IV vancomycin, Zosyn and Levaquin. Sputum cultures from [facility] positive for yeast likely contaminant 3. History of chronic obstructive pulmonary disease with asthma. 4. Leukocytosis. 5. Protein-calorie malnutrition. RECOMMENDATIONS: 1. Continue Zosyn and Levaquin. 2. We will discontinue IV vancomycin as sputum culture and blood cultures from outside hospital are unrevealing at this time. 3. Sputum culture positive for yeast at outside hospital, likely contaminant. 4. Continue nebulizer treatment. 5. Add empiric Zyvox. 6. Pulmonary is evaluating the patient. May need bronchoscopy. 7. Obtain urine Legionella antigen and Strep pneumo antigen. 8. Follow up cultures and lab in a.m. 9. Continue supportive care. 10. Discussed with at bedside. 11. Discussed with RN. Thank you, Dr. Potter, for allowing Infectious Disease to participate in this patient's care. We will follow along with you. STAS MAIN MD DR: MARIELLA/yanique JOB#: [id number] / [id number] RAYMOND
--- NOTE | 2019-04-02 09:54 | PDOC ---
PULMONARY PROGRESS NOTES Subjective less cough, no soa Vitals Vital Signs Date Time Temp Pulse Resp B/P (MAP) Pulse Ox O2 Delivery O2 Flow Rate FiO2 04/02/19 07:55 98.5 83 20 143/89 (107) 94 Nasal Cannula 4.0 98.5 ROS: No Chest Pain General: Alert, No acute distress Lungs: Crackles (bases) Cardiovascular: S1 Abdomen: Soft Neuro Exam: Alert Extremities: No Edema Skin: Warm Labs Laboratory Tests Test 04/01/19 03:00 04/01/19 12:30 04/02/19 04:30 White Blood Count 12.2 x10^3/uL (4.0-11.0) Red Blood Count 3.89 x10^6/uL (4.30-5.70) Hemoglobin 11.7 g/dL (13.0-17.5) Hematocrit 35.4 % (39.0-53.0) Mean Corpuscular Volume 91 fL (79-100) Mean Corpuscular Hemoglobin 30 pg (25-35) Mean Corpuscular Hemoglobin Concent 33 g/dL (31-37) Red Cell Distribution Width 13.2 % (11.5-14.5) Platelet Count 360 x10^3/uL (140-400) Neutrophils (%) (Auto) 87 % (31-73) Lymphocytes (%) (Auto) 7 % (24-48) Monocytes (%) (Auto) 5 % (0-9) Eosinophils (%) (Auto) 0 % (0-3) Basophils (%) (Auto) 0 % (0-3) Neutrophils # (Auto) 10.7 x10^3uL (1.8-7.7) Lymphocytes # (Auto) 0.9 x10^3/uL (1.0-4.8) Monocytes # (Auto) 0.6 x10^3/uL (0.0-1.1) Eosinophils # (Auto) 0.0 x10^3/uL (0.0-0.7) Basophils # (Auto) 0.0 x10^3/uL (0.0-0.2) Sodium Level 141 mmol/L (136-145) Potassium Level 3.4 mmol/L (3.5-5.1) Chloride Level 104 mmol/L (98-107) Carbon Dioxide Level 25 mmol/L (21-32) Anion Gap 12 (6-14) Blood Urea Nitrogen 15 mg/dL (8-26) Creatinine 1.1 mg/dL (0.7-1.3) 0.9 mg/dL (0.7-1.3) Estimated GFR (Cockcroft-Gault) 70.9 89.3 BUN/Creatinine Ratio 14 (6-20) Glucose Level 164 mg/dL (70-99) Calcium Level 8.3 mg/dL (8.5-10.1) Total Bilirubin 0.4 mg/dL (0.2-1.0) Aspartate Amino Transf (AST/SGOT) 16 U/L (15-37) Alanine Aminotransferase (ALT/SGPT) 21 U/L (16-63) Alkaline Phosphatase 68 U/L (46-116) Total Protein 6.7 g/dL (6.4-8.2) Albumin 2.0 g/dL (3.4-5.0) Albumin/Globulin Ratio 0.4 (1.0-1.7) Erythrocyte Sedimentation Rate 67 (0-15) Laboratory Tests Test 04/01/19 12:30 04/02/19 04:30 Erythrocyte Sedimentation Rate 67 (0-15) Creatinine 0.9 mg/dL (0.7-1.3) Estimated GFR (Cockcroft-Gault) 89.3 Impression . 1. The patient with progressive bilateral infiltrates along with emphysematous blebs and reactive adenopathy since the 15th of this month. He was hospitalized and treated with broad-spectrum antibiotics without any clinical improvement. His CTs have shown worsening infiltrates. The differential diagnosis could be broad. 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 Possibility of bronchiolitis obliterans organizing pneumonia would also be a consideration. He would benefit from a diagnostic bronchoscopy with cultures. 2. Underlying chronic obstructive pulmonary disease. 3. Underlying alcoholism, also may be contributing to recurrent pneumonias. Plan . 1. Continue with present broad-spectrum antibiotics. 2. Obtain hypersensitivity pneumonitis panel if available in-house. Otherwise, do as an outpatient. 3. diagnostic bronchoscopy today 4. Obtain sedimentation rate. 5. Continue steroids and see the response to treatment. 6. Follow Infectious Disease recommendations as well. 7. Discussed with the patient. He agrees to proceed with the bronchoscopy. DAMARI GOULD MD April 02, 2019 09:54
--- NOTE | 2019-04-02 11:00 | PDOC ---
Infectious Disease Note Subjective: Subjective pt says doing slightly better awaiting bronch today ROS: ROS Negative except for above. Vital Signs: Vital Signs Vital Signs Date Time Temp Pulse Resp B/P (MAP) Pulse Ox O2 Delivery O2 Flow Rate FiO2 04/02/19 07:55 98.5 83 20 143/89 (107) 94 Nasal Cannula 4.0 98.5 Physical Exam: PHYSICAL EXAM GENERAL: Alert and oriented x 3 male lying comfortably in bed, in no acute distress. HEENT: Normocephalic, atraumatic. Oral mucosa moist. No thrush. No oropharyngeal exudate. Dentition fair. Nasal O2. NECK: Supple. No lymphadenopathy. No JVD. LUNGS: Decreased breath sounds with few expiratory rhonchi. HEART: S1, S2. No gallops. No murmurs. ABDOMEN: Soft, nontender, nondistended. No rebound, no guarding. EXTREMITIES: No edema, no cyanosis. DERMATOLOGIC: Warm, dry, no generalized rash. BACK: Noted some curvature. No CVA tenderness. Spinal stimulator site looks okay. Previous back surgery site looks okay. NEUROLOGIC: Alert and oriented x 3, grossly nonfocal. MUSCULOSKELETAL: No joint effusion, no decrease in range of motion. PSYCHIATRIC: Cooperative with appropriate mood and affect. Medications: Inpatient Meds: Current Medications Medications (Trade) Dose Ordered Sig/Lorie Start Time Stop Time Status Last Admin Dose Admin Acetaminophen (Tylenol) 650 mg PRN Q6HRS PRN 03/31/19 15:30 Albuterol Sulfate (Ventolin Neb Soln) 2.5 mg PRN Q4HRS PRN 03/31/19 15:30 Albuterol/ Ipratropium (Duoneb) 3 ml Q4HRS W/A 03/31/19 18:00 04/02/19 10:55 3 ML Benzonatate (Tessalon Perle) 100 mg PRN TID PRN 03/31/19 15:30 04/01/19 21:33 100 MG Cetirizine HCl (ZyrTEC) 5 mg DAILY 04/01/19 09:00 04/01/19 08:26 5 MG Doxycycline Hyclate (Vibra-Tab) 100 mg BID 04/01/19 10:30 04/01/19 10:30 DC Enoxaparin Sodium (Lovenox 40mg Syringe) 40 mg Q24H 03/31/19 20:00 04/01/19 09:07 DC 03/31/19 22:05 40 MG Enoxaparin Sodium (Lovenox Per Pharmacy Prophylaxis Dosing) 1 each PRN DAILY PRN 03/31/19 18:45 UNV Epinephrine HCl (Adrenalin) 1 mg STK-MED ONCE 04/02/19 09:15 04/02/19 09:16 DC Fentanyl Citrate (Fentanyl 2ml Vial) 50 mcg PRN Q5MIN PRN 04/02/19 06:30 04/03/19 06:29 Guaifenesin (Mucinex) 600 mg BID 03/31/19 21:00 03/31/19 21:50 600 MG Guaifenesin/ Codeine Phosphate (Robitussin Ac) 10 ml PRN Q6HRS PRN 03/31/19 16:45 04/01/19 21:33 10 ML Heparin Sodium (Porcine) (Heparin Sodium) 5,000 unit Q8HRS 03/31/19 16:00 03/31/19 18:22 DC 03/31/19 18:00 5,000 UNIT Lactobacillus Rhamnosus (Culturelle) 1 cap BID 03/31/19 21:00 03/31/19 21:50 1 CAP Levofloxacin (Levaquin) 750 mg DAILY16 04/01/19 16:00 04/01/19 16:06 750 MG Lidocaine HCl 50 ml STK-MED ONCE 04/02/19 09:15 04/02/19 09:16 DC Lidocaine HCl (Lidocaine 1% 20ml Vial) 20 ml STK-MED ONCE 04/02/19 09:15 04/02/19 09:16 DC Lidocaine HCl (Lidocaine 2% Viscous) 100 ml STK-MED ONCE 04/02/19 09:15 04/02/19 09:16 DC Lidocaine HCl (Xylocaine-Mpf 1% 2ml Vial) 2 ml 1X PRN PRN 04/02/19 06:30 04/03/19 06:29 Linezolid (Zyvox) 600 mg BID 04/01/19 10:30 03/31/19 21:50 600 MG Meloxicam (Mobic) 7.5 mg DAILY 04/01/19 09:00 04/01/19 08:25 7.5 MG Methocarbamol (Robaxin) 500 mg PRN Q8HRS PRN 03/31/19 15:30 Methylprednisolone Sodium Succinate (SOLU-Medrol 125MG VIAL) 60 mg BID76 03/31/19 18:00 04/02/19 06:12 60 MG Midazolam HCl (Versed) 2 mg PRN 1X PRN 04/02/19 06:30 04/03/19 06:29 Ondansetron HCl (Zofran) 4 mg PRN Q8HRS PRN 03/31/19 15:30 04/01/19 18:15 4 MG Pantoprazole Sodium (Protonix) 40 mg DAILYAC 03/31/19 16:30 04/01/19 08:25 40 MG Piperacillin Sod/ Tazobactam Sod (Zosyn Per Pharmacy) 1 each PRN DAILY PRN 03/31/19 15:30 Piperacillin Sod/ Tazobactam Sod 4.5 gm/Sodium Chloride 100 ml @ 200 mls/hr Q6HRS 03/31/19 18:00 04/02/19 05:39 200 MLS/HR Potassium Chloride (Klor-Con) 40 meq 1X ONCE 04/01/19 10:00 04/01/19 10:01 DC 04/01/19 11:20 40 MEQ Pseudoephedrine HCl (Sudafed 12-Hour) 120 mg PRN QHS PRN 03/31/19 15:30 Ringer's Solution 1,000 ml @ 125 mls/hr Q8H 04/02/19 06:30 04/02/19 06:31 DC Tramadol HCl (Ultram) 100 mg PRN Q6HRS PRN 03/31/19 15:30 04/01/19 21:50 100 MG Trazodone HCl (Desyrel) 200 mg PRN QHS PRN 03/31/19 15:30 04/01/19 21:34 200 MG Vancomycin HCl (Vanco Per Pharmacy) 1 each PRN DAILY PRN 03/31/19 15:30 04/01/19 09:54 DC 04/01/19 09:39 1 EACH Vancomycin HCl 1.5 gm/Sodium Chloride 500 ml @ 250 mls/hr Q8H 03/31/19 21:00 04/01/19 09:53 DC 04/01/19 05:39 250 MLS/HR Labs: Lab Laboratory Tests Test 04/01/19 12:30 04/02/19 04:30 Erythrocyte Sedimentation Rate 67 (0-15) Creatinine 0.9 mg/dL (0.7-1.3) Estimated GFR (Cockcroft-Gault) 89.3 Objective: Assessment: 1. Acute hypoxic respiratory failure, on nasal O2. 2. Diffuse infiltrates since Mar 04 2019 unresolving pneumonia treated with doxycycline and IV antibiotics from 03/17 through 03/20 at [facility] followed by cefepime from 03/20 through 03/27, readmitted with worsening symptoms and persistent infiltrates Now on IV vancomycin, Zosyn and Levaquin. 3. Sputum cultures from [facility] positive for yeast likely contaminant 4 History of chronic obstructive pulmonary disease with asthma. 5 Leukocytosis. on steroids 6 Protein-calorie malnutrition. Plan: Plan of Care cont zosyn, levaquin,zyvox f/u labs and cults awaiting broch urine legionella and strep pneum ag cont supportive care STAS MAIN MD April 02, 2019 11:00
[2019-04-02] MEDS ORDERED: PROPOFOL 40 ML IV ONE (11:30)
[2019-04-02] MEDS ORDERED: LIDOCAINE 2% PF 5 ML VIAL. ONE (11:30)
--- NOTE | 2019-04-02 11:57 | OP ---
DATE OF SURGERY: PROCEDURE: Bronchoscopy. INDICATIONS: Diffuse infiltrates, dyspnea. DESCRIPTION OF PROCEDURE: Informed consent was obtained from the patient. He agreed to proceed with the procedure. All risks and benefits were explained. Propofol was used for sedation by Anesthesia. Bronch was introduced through the right nostril. The upper airway was passed. Vocal cords moved equally with respiration. The trachea was entered. No tracheal lesions seen. No significant secretions seen. Allie was sharp. Right lung was first examined. All subsegments of right upper, right middle and right lower lobe were examined. No purulent secretions seen. No endobronchial lesion seen. Bronchoalveolar lavage performed from the right upper lobe and right lower lobe. Bronch was introduced into the left lung. Again, no purulent secretions seen. All subsegments of left upper lobe, lingula and left lower lobe were examined. Bronchoalveolar lavage performed from the left lower lobe. The patient tolerated the procedure well. IMPRESSION: 1. No purulent secretions seen in both lungs. 2. No endobronchial lesions seen. 3. Bronchoalveolar lavage performed from the right upper lobe, right middle lobe and left lower lobe and sent for appropriate cultures and cytology. DAMARI GOULD MD DR: CHRISTIAN/yanique JOB#: [id number] / [id number]
--- NOTE | 2019-04-02 11:59 | PDOC ---
[employer] PROGRESS NOTE Chief Complaint Chief Complaint 1. Acute hypoxic respiratory failure in an ex smoker-quit 2012 Differentials include, BOOP, hypersensitivity pneumonitis given 25 years of occupational hazard 2. Underlying COPD asthma type 3. Underlying alcoholism 4. Bullae on CT chest [place] 5. Neg BC in [place] History of Present Illness History of Present Illness Patient seen and examined He is tachypneic and tachycardic His Vasquez is present Discussed with his RN as well as his Vitals Vitals Vital Signs Date Time Temp Pulse Resp B/P (MAP) Pulse Ox O2 Delivery O2 Flow Rate FiO2 04/02/19 11:45 99.3 103 18 126/77 92 Nasal Cannula 8 99.3 Physical Exam Physical Exam GENERAL: Appears ill week short of breath and tachycardic and tachypneic HEENT: Normocephalic, atraumatic. Oral mucosa moist. No thrush. No oropharyngeal exudate. Dentition fair. Nasal O2. NECK: Supple. No lymphadenopathy. No JVD. LUNGS: Decreased breath sounds with few expiratory rhonchi. HEART: S1, S2. Tachycardic at 120 beats per minutes. ABDOMEN: Soft, nontender, nondistended. No rebound, no guarding. EXTREMITIES: No edema, no cyanosis. DERMATOLOGIC: Warm, dry, no generalized rash. BACK: Noted some curvature. No CVA tenderness. Spinal stimulator site looks okay. Previous back surgery site looks okay. NEUROLOGIC: Extremely weak MUSCULOSKELETAL: No joint effusion, no decrease in range of motion. PSYCHIATRIC: Cooperative with appropriate mood and affect. General: Alert, Oriented X3, mild distress Heart: Regular rate, Normal S1, Normal S2 Lungs: Crackles (bases) Abdomen: Normal bowel sounds, Soft, No tenderness, No hepatosplenomegaly Extremities: No clubbing, No cyanosis, No edema, Normal pulses Skin: No rashes, No breakdown, No significant lesion Labs Labs: Laboratory Tests Test 04/01/19 12:30 04/02/19 04:30 Erythrocyte Sedimentation Rate 67 (0-15) Creatinine 0.9 mg/dL (0.7-1.3) Estimated GFR (Cockcroft-Gault) 89.3 Review of Systems Review of Systems [place] of severe shortness of breath and weakness Assessment and Plan Assessmemt and Plan 1. Acute hypoxic respiratory failure in an ex smoker-quit 2012 Differentials include, BOOP, hypersensitivity pneumonitis given 25 years of occupational hazard 2. Underlying COPD asthma type 3. Underlying alcoholism 4. Bullae on CT chest [place] 5. Neg BC in [place] PLAN: Bronchoscopy today Nothing by mouth post midnight Continue other pulmonary meds ID was consulted-to DC vancomycin-blood cultures [place] negative Continue Levaquin and Zosyn WBC 12, potassium mildly low 3.2 replace PO x 1 Discussed with patient and Agreeable with plan of care- gives consent to bronch Total time 33 minutes Comment Review of Relevant I have reviewed the following items kim (where applicable) has been applied. Labs Laboratory Tests Test 04/01/19 03:00 04/01/19 12:30 04/02/19 04:30 White Blood Count 12.2 x10^3/uL (4.0-11.0) Red Blood Count 3.89 x10^6/uL (4.30-5.70) Hemoglobin 11.7 g/dL (13.0-17.5) Hematocrit 35.4 % (39.0-53.0) Mean Corpuscular Volume 91 fL (79-100) Mean Corpuscular Hemoglobin 30 pg (25-35) Mean Corpuscular Hemoglobin Concent 33 g/dL (31-37) Red Cell Distribution Width 13.2 % (11.5-14.5) Platelet Count 360 x10^3/uL (140-400) Neutrophils (%) (Auto) 87 % (31-73) Lymphocytes (%) (Auto) 7 % (24-48) Monocytes (%) (Auto) 5 % (0-9) Eosinophils (%) (Auto) 0 % (0-3) Basophils (%) (Auto) 0 % (0-3) Neutrophils # (Auto) 10.7 x10^3uL (1.8-7.7) Lymphocytes # (Auto) 0.9 x10^3/uL (1.0-4.8) Monocytes # (Auto) 0.6 x10^3/uL (0.0-1.1) Eosinophils # (Auto) 0.0 x10^3/uL (0.0-0.7) Basophils # (Auto) 0.0 x10^3/uL (0.0-0.2) Sodium Level 141 mmol/L (136-145) Potassium Level 3.4 mmol/L (3.5-5.1) Chloride Level 104 mmol/L (98-107) Carbon Dioxide Level 25 mmol/L (21-32) Anion Gap 12 (6-14) Blood Urea Nitrogen 15 mg/dL (8-26) Creatinine 1.1 mg/dL (0.7-1.3) 0.9 mg/dL (0.7-1.3) Estimated GFR (Cockcroft-Gault) 70.9 89.3 BUN/Creatinine Ratio 14 (6-20) Glucose Level 164 mg/dL (70-99) Calcium Level 8.3 mg/dL (8.5-10.1) Total Bilirubin 0.4 mg/dL (0.2-1.0) Aspartate Amino Transf (AST/SGOT) 16 U/L (15-37) Alanine Aminotransferase (ALT/SGPT) 21 U/L (16-63) Alkaline Phosphatase 68 U/L (46-116) Total Protein 6.7 g/dL (6.4-8.2) Albumin 2.0 g/dL (3.4-5.0) Albumin/Globulin Ratio 0.4 (1.0-1.7) Erythrocyte Sedimentation Rate 67 (0-15) Laboratory Tests Test 04/01/19 12:30 04/02/19 04:30 Erythrocyte Sedimentation Rate 67 (0-15) Creatinine 0.9 mg/dL (0.7-1.3) Estimated GFR (Cockcroft-Gault) 89.3 Medications Current Medications Acetaminophen (Tylenol) 650 mg PRN Q6HRS PRN PO MILD PAIN 1-3; Start 03/31/19 at 15:30 Albuterol Sulfate (Ventolin Neb Soln) 2.5 mg PRN Q4HRS PRN NEB SHORTNESS OF BREATH; Start 03/31/19 at 15:30 Benzonatate (Tessalon Perle) 100 mg PRN TID PRN PO cough 1ST CHOICE Last administered on 04/01/19at 21:33; Start 03/31/19 at 15:30 Cetirizine HCl (ZyrTEC) 5 mg DAILY PO Last administered on 04/01/19at 08:26; Start 04/01/19 at 09:00 Heparin Sodium (Porcine) (Heparin Sodium) 5,000 unit Q8HRS SQ Last administered on 03/31/19at 18:00; Start 03/31/19 at 16:00; Stop 03/31/19 at 18:22; Status DC Albuterol/ Ipratropium (Duoneb) 3 ml RTQID NEB ; Start 03/31/19 at 16:00; Stop 03/31/19 at 16:23; Status DC Lactobacillus Rhamnosus (Culturelle) 1 cap BID PO Last administered on 03/31/19at 21:50; Start 03/31/19 at 21:00 Meloxicam (Mobic) 7.5 mg DAILY PO Last administered on 04/01/19 08:25; Start 04/01/19 at 09:00 Methocarbamol (Robaxin) 500 mg PRN Q8HRS PRN PO MUSCLE SPASMS; Start 03/31/19 at 15:30 Ondansetron HCl (Zofran) 4 mg PRN Q8HRS PRN IV NAUSEA/VOMITING Last administered on 04/01/19at 18:15; Start 03/31/19 at 15:30 Pantoprazole Sodium (Protonix) 40 mg DAILYAC PO Last administered on 04/01/19 08:25; Start 03/31/19 at 16:30 Piperacillin Sod/ Tazobactam Sod (Zosyn Per Pharmacy) 1 each PRN DAILY PRN MC SEE COMMENTS; Start 03/31/19 at 15:30 Pseudoephedrine HCl (Sudafed 12-Hour) 120 mg PRN QHS PRN PO NASAL CONGESTION; Start 03/31/19 at 15:30 Vancomycin HCl (Vanco Per Pharmacy) 1 each PRN DAILY PRN MC SEE COMMENTS Last administered on 04/01/19at 09:39; Start 03/31/19 at 15:30; Stop 04/01/19 at 09:54; Status DC Guaifenesin (Mucinex) 600 mg BID PO Last administered on 03/31/19at 21:50; Start 03/31/19 at 21:00 Methylprednisolone Sodium Succinate (SOLU-Medrol 125MG VIAL) 60 mg BID76 IV Last administered on 04/02/19 06:12; Start 03/31/19 at 18:00 Tramadol HCl (Ultram) 100 mg PRN Q6HRS PRN PO MODERATE PAIN Last administered on 04/01/19at 21:50; Start 03/31/19 at 15:30 Trazodone HCl (Desyrel) 200 mg PRN QHS PRN PO INSOMNIA Last administered on 04/01/19at 21:34; Start 03/31/19 at 15:30 Piperacillin Sod/ Tazobactam Sod 4.5 gm/Sodium Chloride 100 ml @ 200 mls/hr Q6HRS IV Last administered on 04/02/19 05:39; Start 03/31/19 at 18:00 Vancomycin HCl 1.5 gm/Sodium Chloride 500 ml @ 250 mls/hr Q8H IV Last administered on 04/01/19 05:39; Start 03/31/19 at 21:00; Stop 04/01/19 at 09:53; Status DC Albuterol/ Ipratropium (Duoneb) 3 ml Q4HRS W/A NEB Last administered on 04/02/19at 10:55; Start 03/31/19 at 18:00 Guaifenesin/ Codeine Phosphate (Robitussin Ac) 10 ml PRN Q6HRS PRN PO COUGH 2ND CHOICE Last administered on 04/01/19at 21:33; Start 03/31/19 at 16:45 Levofloxacin (Levaquin) 750 mg 1X ONCE PO Last administered on 03/31/19at 22:04; Start 03/31/19 at 18:15; Stop 03/31/19 at 18:16; Status DC Levofloxacin (Levaquin) 750 mg DAILY16 PO Last administered on 04/01/19at 16:06; Start 04/01/19 at 16:00 Enoxaparin Sodium (Lovenox Per Pharmacy Prophylaxis Dosing) 1 each PRN DAILY PRN MC SEE COMMENTS; Start 03/31/19 at 18:15; Stop 04/01/19 at 09:29; Status DC Enoxaparin Sodium (Lovenox Per Pharmacy Prophylaxis Dosing) 1 each PRN DAILY PRN MC SEE COMMENTS; Start 03/31/19 at 18:45; Status UNV Enoxaparin Sodium (Lovenox 40mg Syringe) 40 mg Q24H SQ Last administered on at 22:05; Start 03/31/19 at 20:00; Stop 04/01/19 at 09:07; Status DC Potassium Chloride (Klor-Con) 40 meq 1X ONCE PO Last administered on 04/01/19at 11:20; Start 04/01/19 at 10:00; Stop 04/01/19 at 10:01; Status DC Linezolid (Zyvox) 600 mg BID PO Last administered on 03/31/19at 21:50; Start 04/01/19 at 10:30 Doxycycline Hyclate (Vibra-Tab) 100 mg BID PO ; Start 04/01/19 at 10:30; Stop 04/01/19 at 10:30; Status DC Ringer's Solution 1,000 ml @ 50 mls/hr Q20H IV ; Start 04/02/19 at 07:00; Stop 04/02/19 at 18:59 Midazolam HCl (Versed) 2 mg PRN 1X PRN IV PRIOR TO PROCEDURE; Start 04/02/19 at 06:30; Stop 04/03/19 at 06:29 Fentanyl Citrate (Fentanyl 2ml Vial) 25 mcg PRN Q5MIN PRN IV X 2 DOSES FOR PAIN; Start 04/02/19 at 06:30; Stop 04/03/19 at 06:29 Fentanyl Citrate (Fentanyl 2ml Vial) 50 mcg PRN Q5MIN PRN IV X 2 DOSES FOR PAIN; Start 04/02/19 at 06:30; Stop 04/03/19 at 06:29 Ringer's Solution 1,000 ml @ 125 mls/hr Q8H IV Last administered on 04/02/19at 11:08; Start 04/02/19 at 06:30; Stop 04/02/19 at 06:31; Status DC Lidocaine HCl (Xylocaine-Mpf 1% 2ml Vial) 2 ml 1X PRN PRN ID IV START; Start 04/02/19 at 06:30; Stop 04/03/19 at 06:29 Lidocaine HCl (Lidocaine 2% Viscous) 100 ml PRN 1X PRN MM MOUTH PAIN Last administered on 04/02/19at 10:55; Start 04/02/19 at 08:45; Stop 04/03/19 at 08:44 Lidocaine HCl (Lidocaine 1% 20ml Vial) 20 ml PRN 1X PRN INJ SEE COMMENTS Last administered on 04/02/19at 10:56; Start 04/02/19 at 08:45; Stop 04/03/19 at 08:44 Epinephrine HCl (Adrenalin) 1 mg PRN 1X PRN INJ SEE COMMENTS; Start 04/02/19 at 08:45; Stop 04/03/19 at 08:44 Lidocaine HCl 50 ml PRN 1X PRN MM SEE COMMENTS Last administered on 04/02/19at 10:55; Start 04/02/19 at 08:45; Stop 04/03/19 at 08:44 Epinephrine HCl (Adrenalin) 1 mg STK-MED ONCE .ROUTE ; Start 04/02/19 at 09:15; Stop 04/02/19 at 09:16; Status DC Lidocaine HCl (Lidocaine 1% 20ml Vial) 20 ml STK-MED ONCE .ROUTE ; Start 04/02/19 at 09:15; Stop 04/02/19 at 09:16; Status DC Lidocaine HCl (Lidocaine 2% Viscous) 100 ml STK-MED ONCE .ROUTE ; Start 04/02/19 at 09:15; Stop 04/02/19 at 09:16; Status DC Lidocaine HCl 50 ml STK-MED ONCE .ROUTE ; Start 04/02/19 at 09:15; Stop 04/02/19 at 09:16; Status DC Propofol 40 ml @ As Directed STK-MED ONCE IV ; Start 04/02/19 at 11:30; Stop 04/02/19 at 11:31; Status DC Lidocaine HCl (Lidocaine Pf 2% Vial) 5 ml STK-MED ONCE .ROUTE ; Start 04/02/19 at 11:30; Stop 04/02/19 at 11:31; Status DC Vitals/I & O Vital Sign - Last 24 Hours 04/01/19 04/01/19 04/01/19 04/01/19 12:03 15:00 16:06 16:22 Temp 98.0 98.0 Pulse 113 Resp 20 B/P (MAP) 141/91 (108) Pulse Ox 89 O2 Delivery Nasal Cannula Nasal Cannula Nasal Cannula Nasal Cannula O2 Flow Rate 4.0 4.0 4.0 04/01/19 04/01/19 04/01/19 04/01/19 19:15 19:50 21:33 21:50 Temp 98.7 98.7 Pulse 111 Resp 20 20 18 B/P (MAP) 134/89 (104) Pulse Ox 95 O2 Delivery Nasal Cannula Nasal Cannula Nasal Cannula O2 Flow Rate 4.0 4.0 4.0 04/01/19 04/01/19 04/02/1930/19 22:50 23:47 03:06 03:32 Temp 97.9 98.0 97.9 98.0 Pulse 106 104 Resp 16 20 20 B/P (MAP) 136/89 (105) 137/90 (106) Pulse Ox 91 90 O2 Delivery Nasal Cannula Nasal Cannula Nasal Cannula Nasal Cannula O2 Flow Rate 4.0 4.0 4.0 4.0 04/02/19 04/02/19 04/02/19 04/02/19 07:52 07:55 08:00 10:59 Temp 98.5 98.5 98.5 98.5 Pulse 83 94 Resp 20 18 B/P (MAP) 143/89 (107) Pulse Ox 90 94 94 O2 Delivery Nasal Cannula Nasal Cannula Nasal Cannula O2 Flow Rate 4.0 4.0 4.0 04/02/19 04/02/19 10:59 11:45 Temp 99.3 99.3 Pulse 103 Resp 18 B/P (MAP) 126/77 Pulse Ox 92 O2 Delivery Nasal Cannula Nasal Cannula O2 Flow Rate 4.0 8 Intake and Output 04/01/19 04/01/19 04/02/19 15:00 23:00 07:00 Intake Total 680 ml 490 ml 100 ml Balance 680 ml 490 ml 100 ml CASTLE,NIAL K III DO April 02, 2019 11:59
--- NOTE | 2019-04-02 14:00 | NUR ---
The patient underwent bronchoscopy today, came back to the unit at 1240. He is alert, oriented x 4, denies any pain. VS BP 150/94 HR 102 RR 20 O2 sat 91% on O2 4LPM per nasal cannula. We'll continue to monitor.
[2019-04-02] MEDS: CETIRIZINE HCL 10 MG TABLET. PO SCH (15:02)
[2019-04-02] MEDS: PANTOPRAZOLE 40 MG TABLET.DR. PO SCH (15:02)
[2019-04-02] MEDS: LACTOBACILLUS RHAMNOSUS GG 1 CAPSULE. PO SCH ×2 (15:02→23:35)
[2019-04-02] MEDS: MELOXICAM 7.5 MG TABLET PO SCH (15:09)
[2019-04-02 15:31] VITALS: BP 139/92
[2019-04-02] MEDS: BENZONATATE 100 MG CAPSULE. PO SCH (18:06)
[2019-04-02] MEDS: guaiFENesin/CODEINE 100mg/10mg 5 ML LIQUID PO SCH (18:06)
[2019-04-02 19:12] VITALS: BP 125/96
[2019-04-02 19:42] VITALS: BP 121/80
[2019-04-02] MEDS: traMADol 50 MG TABLET PO PRN (21:18)
[2019-04-02] MEDS: traZODone 100 MG TABLET. PO PRN (21:18)
[2019-04-02 23:57] VITALS: BP 121/80
[2019-04-03 03:52] VITALS: BP 121/77
[2019-04-03] MEDS: PIPERACILLIN/TAZOBACTAM 4.5 GM in IV NORMAL SALINE 100ML 100 ML IV SCH ×4 (05:19→23:39)
[2019-04-03] MEDS: methylPREDNISolone SOD SUCC PF 125 MG/2 ML VIAL. IV SCH ×2 (06:43→17:47)
[2019-04-03 07:00] VITALS: BP 126/81
[2019-04-03] MEDS: IPRATRPIUM/ALBUTEROL 0.5/2.5MG 3 ML NEBU. NEB SCH ×5 (07:27→20:29)
[2019-04-03] MEDS: PANTOPRAZOLE 40 MG TABLET.DR. PO SCH (08:24)
[2019-04-03] MEDS: LINEZOLID 600 MG TABLET PO SCH ×2 (08:24→20:42)
[2019-04-03] MEDS: LACTOBACILLUS RHAMNOSUS GG 1 CAPSULE. PO SCH ×2 (08:24→20:42)
[2019-04-03] MEDS: CETIRIZINE HCL 10 MG TABLET. PO SCH (08:24)
[2019-04-03] MEDS: BENZONATATE 100 MG CAPSULE. PO SCH ×3 (08:25→20:42)
[2019-04-03] MEDS: guaiFENesin/CODEINE 100mg/10mg 5 ML LIQUID PO SCH ×3 (08:25→20:42)
[2019-04-03] MEDS: MELOXICAM 7.5 MG TABLET PO SCH (08:26)
--- NOTE | 2019-04-03 09:23 | PDOC ---
Infectious Disease Note Subjective: Subjective pt still has some cough shortness of breath Some nausea yesterday now resolved Subjective fevers no chills or diarrhea ROS: ROS Negative except for above. Vital Signs: Vital Signs Vital Signs Date Time Temp Pulse Resp B/P (MAP) Pulse Ox O2 Delivery O2 Flow Rate FiO2 04/03/19 07:27 95 Nasal Cannula 4.0 04/03/19 07:00 98.3 98 16 126/81 (96) 98.3 Physical Exam: PHYSICAL EXAM GENERAL: Appears ill week short of breath and tachycardic and tachypneic HEENT: Normocephalic, atraumatic. Oral mucosa moist. No thrush. No oropharyngeal exudate. Dentition fair. Nasal O2. NECK: Supple. No lymphadenopathy. No JVD. LUNGS: Decreased breath sounds with few expiratory rhonchi. HEART: S1, S2. Tachycardic at 120 beats per minutes. ABDOMEN: Soft, nontender, nondistended. No rebound, no guarding. EXTREMITIES: No edema, no cyanosis. DERMATOLOGIC: Warm, dry, no generalized rash. BACK: Noted some curvature. No CVA tenderness. Spinal stimulator site looks okay. Previous back surgery site looks okay. NEUROLOGIC: Extremely weak MUSCULOSKELETAL: No joint effusion, no decrease in range of motion. PSYCHIATRIC: Cooperative with appropriate mood and affect. Medications: Inpatient Meds: Current Medications Medications (Trade) Dose Ordered Sig/Lorie Start Time Stop Time Status Last Admin Dose Admin Acetaminophen (Tylenol) 650 mg PRN Q6HRS PRN 03/31/19 15:30 Albuterol Sulfate (Ventolin Neb Soln) 2.5 mg PRN Q4HRS PRN 03/31/19 15:30 Albuterol/ Ipratropium (Duoneb) 3 ml Q4HRS W/A 03/31/19 18:00 04/03/19 07:27 3 ML Benzonatate (Tessalon Perle) 100 mg TID 04/02/19 18:00 04/03/19 08:25 100 MG Cetirizine HCl (ZyrTEC) 5 mg DAILY 04/01/19 09:00 04/03/19 08:24 5 MG Doxycycline Hyclate (Vibra-Tab) 100 mg BID 04/01/19 10:30 04/01/19 10:30 DC Enoxaparin Sodium (Lovenox 40mg Syringe) 40 mg Q24H 03/31/19 20:00 04/01/19 09:07 DC 03/31/19 22:05 40 MG Enoxaparin Sodium (Lovenox Per Pharmacy Prophylaxis Dosing) 1 each PRN DAILY PRN 03/31/19 18:45 UNV Epinephrine HCl (Adrenalin) 1 mg STK-MED ONCE 04/02/19 09:15 04/02/19 09:16 DC Fentanyl Citrate (Fentanyl 2ml Vial) 50 mcg PRN Q5MIN PRN 04/02/19 06:30 04/03/19 06:29 DC Guaifenesin (Mucinex) 600 mg BID 03/31/19 21:00 04/02/19 17:21 DC 04/02/19 15:02 600 MG Guaifenesin/ Codeine Phosphate (Robitussin Ac) 10 ml TID 04/02/19 18:00 04/03/19 08:25 10 ML Heparin Sodium (Porcine) (Heparin Sodium) 5,000 unit Q8HRS 03/31/19 16:00 03/31/19 18:22 DC 03/31/19 18:00 5,000 UNIT Lactobacillus Rhamnosus (Culturelle) 1 cap BID 03/31/19 21:00 04/03/19 08:24 1 CAP Levofloxacin (Levaquin) 750 mg DAILY16 04/01/19 16:00 04/02/19 15:07 750 MG Lidocaine HCl (Lidocaine 1% 20ml Vial) 20 ml STK-MED ONCE 04/02/19 09:15 04/02/19 09:16 DC Lidocaine HCl (Lidocaine 2% Viscous) 100 ml STK-MED ONCE 04/02/19 09:15 04/02/19 09:16 DC Lidocaine HCl (Lidocaine Pf 2% Vial) 5 ml STK-MED ONCE 04/02/19 11:30 04/02/19 11:31 DC Lidocaine HCl (Xylocaine-Mpf 1% 2ml Vial) 2 ml 1X PRN PRN 04/02/19 06:30 04/03/19 06:29 DC Linezolid (Zyvox) 600 mg BID 04/01/19 10:30 04/03/19 08:24 600 MG Meloxicam (Mobic) 7.5 mg DAILY 04/01/19 09:00 04/03/19 08:26 7.5 MG Methocarbamol (Robaxin) 500 mg PRN Q8HRS PRN 03/31/19 15:30 Methylprednisolone Sodium Succinate (SOLU-Medrol 125MG VIAL) 60 mg BID76 03/31/19 18:00 04/03/19 06:43 60 MG Midazolam HCl (Versed) 2 mg PRN 1X PRN 04/02/19 06:30 04/03/19 06:29 DC Ondansetron HCl (Zofran) 4 mg PRN Q8HRS PRN 03/31/19 15:30 04/01/19 18:15 4 MG Pantoprazole Sodium (Protonix) 40 mg DAILYAC 03/31/19 16:30 04/03/19 08:24 40 MG Piperacillin Sod/ Tazobactam Sod (Zosyn Per Pharmacy) 1 each PRN DAILY PRN 03/31/19 15:30 Piperacillin Sod/ Tazobactam Sod 4.5 gm/Sodium Chloride 100 ml @ 200 mls/hr Q6HRS 03/31/19 18:00 04/03/19 05:19 200 MLS/HR Potassium Chloride (Klor-Con) 40 meq 1X ONCE 04/01/19 10:00 04/01/19 10:01 DC 04/01/19 11:20 40 MEQ Propofol 40 ml @ As Directed STK-MED ONCE 04/02/19 11:30 04/02/19 11:31 DC Pseudoephedrine HCl (Sudafed 12-Hour) 120 mg PRN QHS PRN 03/31/19 15:30 Ringer's Solution 1,000 ml @ 125 mls/hr Q8H 04/02/19 06:30 04/02/19 06:31 DC 04/02/19 11:08 125 MLS/HR Tramadol HCl (Ultram) 100 mg PRN Q6HRS PRN 03/31/19 15:30 04/02/19 21:18 100 MG Trazodone HCl (Desyrel) 200 mg PRN QHS PRN 03/31/19 15:30 04/02/19 21:18 200 MG Vancomycin HCl (Vanco Per Pharmacy) 1 each PRN DAILY PRN 03/31/19 15:30 04/01/19 09:54 DC 04/01/19 09:39 1 EACH Vancomycin HCl 1.5 gm/Sodium Chloride 500 ml @ 250 mls/hr Q8H 03/31/19 21:00 04/01/19 09:53 DC 04/01/19 05:39 250 MLS/HR Labs: Micro Bronch c/s negative so far Objective: Assessment: 1. Acute hypoxic respiratory failure, on nasal O2. 2. Diffuse infiltrates since Mar 04 2019 unresolving pneumonia treated with doxycycline and IV antibiotics from 03/17 through 03/20 at [facility] followed by cefepime from 03/20 through 03/27, readmitted with worsening symptoms and persistent infiltrates Now on IV vancomycin, Zosyn and Levaquin. 3. Sputum cultures from [facility] positive for yeast likely contaminant 4 History of chronic obstructive pulmonary disease with asthma. 5 Leukocytosis. on steroids 6 Protein-calorie malnutrition. Plan: Plan of Care cont zosyn, levaquin,zyvox f/u labs and cults f/u urine legionella and strep pneum ag cont supportive care STAS MAIN MD April 03, 2019 09:23
--- NOTE | 2019-04-03 10:29 | PDOC ---
[employer] PROGRESS NOTE Chief Complaint Chief Complaint 1. Acute hypoxic respiratory failure in an ex smoker-quit 2013 Differentials include, BOOP, hypersensitivity pneumonitis given 25 years of occupational hazard 2. Underlying COPD asthma type 3. Underlying alcoholism 4. Bullae on CT chest [place] 5. Neg BC in [place] History of Present Illness History of Present Illness Patient seen and examined He is less tachypneic and tachycardic His Vasquez is present Discussed with his RN as well as his Vitals Vitals Vital Signs Date Time Temp Pulse Resp B/P (MAP) Pulse Ox O2 Delivery O2 Flow Rate FiO2 04/03/19 07:27 95 Nasal Cannula 4.0 04/03/19 07:00 98.3 98 16 126/81 (96) 98.3 Physical Exam Physical Exam GENERAL: Appears less ill . HEENT: Normocephalic, atraumatic. Oral mucosa moist. No thrush. No oropharyngeal exudate. Dentition fair. Nasal O2. NECK: Supple. No lymphadenopathy. No JVD. LUNGS: Decreased breath sounds with few expiratory rhonchi. HEART: S1, S2. Tachycardic at 120 beats per minutes. ABDOMEN: Soft, nontender, nondistended. No rebound, no guarding. EXTREMITIES: No edema, no cyanosis. DERMATOLOGIC: Warm, dry, no generalized rash. BACK: Noted some curvature. No CVA tenderness. Spinal stimulator site looks okay. Previous back surgery site looks okay. NEUROLOGIC: Extremely weak MUSCULOSKELETAL: No joint effusion, no decrease in range of motion. PSYCHIATRIC: Cooperative with appropriate mood and affect. General: Alert, Oriented X3, mild distress Heart: Regular rate, Normal S1, Normal S2 Lungs: Crackles (bases) Abdomen: Normal bowel sounds, Soft, No tenderness, No hepatosplenomegaly Extremities: No clubbing, No cyanosis, No edema, Normal pulses Skin: No rashes, No breakdown, No significant lesion Review of Systems Review of Systems Complains of shortness of breath but improved Assessment and Plan Assessmemt and Plan Respiratory failure Acute on chronic pneumonia COPD Leukocytosis Hypoxia Fevers Plan IV antibiotics O2 O2 per nasal cannula DVT prophylaxis Await BAL report Home meds Frequent labs f/u urine legionella and strep pneum ag cont supportive care Appreciate subspecialist input Total time 32 minutes Comment Review of Relevant I have reviewed the following items kim (where applicable) has been applied. Labs Laboratory Tests Test 04/01/19 12:30 04/02/19 04:30 Erythrocyte Sedimentation Rate 67 (0-15) Creatinine 0.9 mg/dL (0.7-1.3) Estimated GFR (Cockcroft-Gault) 89.3 Microbiology 04/02/19 - Final, Complete Medications Current Medications Acetaminophen (Tylenol) 650 mg PRN Q6HRS PRN PO MILD PAIN 1-3; Start 03/31/19 at 15:30 Albuterol Sulfate (Ventolin Neb Soln) 2.5 mg PRN Q4HRS PRN NEB SHORTNESS OF BREATH; Start 03/31/19 at 15:30 Benzonatate (Tessalon Perle) 100 mg PRN TID PRN PO cough 1ST CHOICE Last administered on 04/01/19at 21:33; Start 03/31/19 at 15:30; Stop 04/02/19 at 17:21; Status DC Cetirizine HCl (ZyrTEC) 5 mg DAILY PO Last administered on 04/03/19at 08:24; Start 04/01/19 at 09:00 Heparin Sodium (Porcine) (Heparin Sodium) 5,000 unit Q8HRS SQ Last administered on 03/31/19at 18:00; Start 03/31/19 at 16:00; Stop 03/31/19 at 18:22; Status DC Albuterol/ Ipratropium (Duoneb) 3 ml RTQID NEB ; Start 03/31/19 at 16:00; Stop 03/31/19 at 16:23; Status DC Lactobacillus Rhamnosus (Culturelle) 1 cap BID PO Last administered on 04/03/19at 08:24; Start 03/31/19 at 21:00 Meloxicam (Mobic) 7.5 mg DAILY PO Last administered on 04/03/19at 08:26; Start 04/01/19 at 09:00 Methocarbamol (Robaxin) 500 mg PRN Q8HRS PRN PO MUSCLE SPASMS; Start 03/31/19 at 15:30 Ondansetron HCl (Zofran) 4 mg PRN Q8HRS PRN IV NAUSEA/VOMITING Last administered on 04/01/19at 18:15; Start 03/31/19 at 15:30 Pantoprazole Sodium (Protonix) 40 mg DAILYAC PO Last administered on 04/03/19at 08:24; Start 03/31/19 at 16:30 Piperacillin Sod/ Tazobactam Sod (Zosyn Per Pharmacy) 1 each PRN DAILY PRN MC SEE COMMENTS; Start 03/31/19 at 15:30 Pseudoephedrine HCl (Sudafed 12-Hour) 120 mg PRN QHS PRN PO NASAL CONGESTION; Start 03/31/19 at 15:30 Vancomycin HCl (Vanco Per Pharmacy) 1 each PRN DAILY PRN MC SEE COMMENTS Last administered on 04/01/19at 09:39; Start 03/31/19 at 15:30; Stop 04/01/19 at 09:54; Status DC Guaifenesin (Mucinex) 600 mg BID PO Last administered on 04/02/19at 15:02; Start 03/31/19 at 21:00; Stop 04/02/19 at 17:21; Status DC Methylprednisolone Sodium Succinate (SOLU-Medrol 125MG VIAL) 60 mg [id number] IV Last administered on 04/03/19at 06:43; Start 03/31/19 at 18:00 Tramadol HCl (Ultram) 100 mg PRN Q6HRS PRN PO MODERATE PAIN Last administered on 04/02/19at 21:18; Start 03/31/19 at 15:30 Trazodone HCl (Desyrel) 200 mg PRN QHS PRN PO INSOMNIA Last administered on 04/02/19at 21:18; Start 03/31/19 at 15:30 Piperacillin Sod/ Tazobactam Sod 4.5 gm/Sodium Chloride 100 ml @ 200 mls/hr Q6HRS IV Last administered on 04/03/19 05:19; Start 03/31/19 at 18:00 Vancomycin HCl 1.5 gm/Sodium Chloride 500 ml @ 250 mls/hr Q8H IV Last administered on 04/01/19 05:39; Start 03/31/19 at 21:00; Stop 04/01/19 at 09:53; Status DC Albuterol/ Ipratropium (Duoneb) 3 ml Q4HRS W/A NEB Last administered on 04/03/19at 07:27; Start 03/31/19 at 18:00 Guaifenesin/ Codeine Phosphate (Robitussin Ac) 10 ml PRN Q6HRS PRN PO COUGH 2ND CHOICE Last administered on 04/01/19at 21:33; Start 03/31/19 at 16:45; Stop 04/02/19 at 17:21; Status DC Levofloxacin (Levaquin) 750 mg 1X ONCE PO Last administered on 03/31/19at 22:04; Start 03/31/19 at 18:15; Stop 03/31/19 at 18:16; Status DC Levofloxacin (Levaquin) 750 mg DAILY16 PO Last administered on 04/02/19at 15:07; Start 04/01/19 at 16:00 Enoxaparin Sodium (Lovenox Per Pharmacy Prophylaxis Dosing) 1 each PRN DAILY PRN MC SEE COMMENTS; Start 03/31/19 at 18:15; Stop 04/01/19 at 09:29; Status DC Enoxaparin Sodium (Lovenox Per Pharmacy Prophylaxis Dosing) 1 each PRN DAILY PRN MC SEE COMMENTS; Start 03/31/19 at 18:45; Status UNV Enoxaparin Sodium (Lovenox 40mg Syringe) 40 mg Q24H SQ Last administered on 03/31/19at 22:05; Start 03/31/19 at 20:00; Stop 04/01/19 at 09:07; Status DC Potassium Chloride (Klor-Con) 40 meq 1X ONCE PO Last administered on 04/01/19at 11:20; Start 04/01/19 at 10:00; Stop 04/01/19 at 10:01; Status DC Linezolid (Zyvox) 600 mg BID PO Last administered on 04/03/19at 08:24; Start 04/01/19 at 10:30 Doxycycline Hyclate (Vibra-Tab) 100 mg BID PO ; Start 04/01/19 at 10:30; Stop 04/01/19 at 10:30; Status DC Ringer's Solution 1,000 ml @ 50 mls/hr Q20H IV ; Start 04/02/19 at 07:00; Stop 04/02/19 at 18:59; Status DC Midazolam HCl (Versed) 2 mg PRN 1X PRN IV PRIOR TO PROCEDURE; Start 04/02/19 at 06:30; Stop 04/03/19 at 06:29; Status DC Fentanyl Citrate (Fentanyl 2ml Vial) 25 mcg PRN Q5MIN PRN IV X 2 DOSES FOR PAIN; Start 04/02/19 at 06:30; Stop 04/03/19 at 06:29; Status DC Fentanyl Citrate (Fentanyl 2ml Vial) 50 mcg PRN Q5MIN PRN IV X 2 DOSES FOR PAIN; Start 04/02/19 at 06:30; Stop 04/03/19 at 06:29; Status DC Ringer's Solution 1,000 ml @ 125 mls/hr Q8H IV Last administered on 04/02/19at 11:08; Start 04/02/19 at 06:30; Stop 04/02/19 at 06:31; Status DC Lidocaine HCl (Xylocaine-Mpf 1% 2ml Vial) 2 ml 1X PRN PRN ID IV START; Start 04/02/19 at 06:30; Stop 04/03/19 at 06:29; Status DC Lidocaine HCl (Lidocaine 2% Viscous) 100 ml PRN 1X PRN MM MOUTH PAIN Last administered on 04/02/19at 10:55; Start 04/02/19 at 08:45; Stop 04/03/19 at 08:44; Status DC Lidocaine HCl (Lidocaine 1% 20ml Vial) 20 ml PRN 1X PRN INJ SEE COMMENTS Last administered on 04/02/19at 10:56; Start 04/02/19 at 08:45; Stop 04/03/19 at 08:44; Status DC Epinephrine HCl (Adrenalin) 1 mg PRN 1X PRN INJ SEE COMMENTS; Start 04/02/19 at 08:45; Stop 04/03/19 at 08:44; Status DC Lidocaine HCl 50 ml PRN 1X PRN MM SEE COMMENTS Last administered on 04/02/19at 10:55; Start 04/02/19 at 08:45; Stop 04/03/19 at 08:44; Status DC Epinephrine HCl (Adrenalin) 1 mg STK-MED ONCE .ROUTE ; Start 04/02/19 at 09:15; Stop 04/02/19 at 09:16; Status DC Lidocaine HCl (Lidocaine 1% 20ml Vial) 20 ml STK-MED ONCE .ROUTE ; Start 04/02 at 09:15; Stop 04/02/19 at 09:16; Status DC Lidocaine HCl (Lidocaine 2% Viscous) 100 ml STK-MED ONCE .ROUTE ; Start 04/02/19 at 09:15; Stop 04/02/19 at 09:16; Status DC Lidocaine HCl 50 ml STK-MED ONCE .ROUTE ; Start 04/02/19 at 09:15; Stop 04/02/19 at 09:16; Status DC Propofol 40 ml @ As Directed STK-MED ONCE IV ; Start 04/02/19 at 11:30; Stop 04/02/19 at 11:31; Status DC Lidocaine HCl (Lidocaine Pf 2% Vial) 5 ml STK-MED ONCE .ROUTE ; Start 04/02/19 at 11:30; Stop 04/02/19 at 11:31; Status DC Benzonatate (Tessalon Perle) 100 mg TID PO Last administered on 04/03/19at 08:25; Start 04/02/19 at 18:00 Guaifenesin/ Codeine Phosphate (Robitussin Ac) 10 ml TID PO Last administered on 04/03/19at 08:25; Start 04/02/19 at 18:00 Vitals/I & O Vital Sign - Last 24 Hours 04/02/19 04/02/19 04/02/19 04/02/19 10:59 10:59 11:45 12:00 Temp 98.5 99.3 98.5 99.3 Pulse 94 103 104 Resp 18 B/P (MAP) 126/77 125/75 Pulse Ox 94 92 91 O2 Delivery Nasal Cannula Nasal Cannula Simple Mask O2 Flow Rate 4.0 8 9 04/02/19 04/02/19 04/02/19 04/02/19 12:15 15:31 16:08 19:12 Temp 98.1 98.6 98.1 98.6 Pulse 100 96 114 Resp 18 B/P (MAP) 127/72 139/92 (108) 125/96 (106) Pulse Ox 92 95 92 90 O2 Delivery Simple Mask Nasal Cannula Nasal Cannula Nasal Cannula O2 Flow Rate 8 4.0 4.0 4.0 04/02/19 04/02/19 04/02/19 04/02/19 19:50 20:10 21:18 22:19 Resp 18 17 Pulse Ox 95 O2 Delivery Nasal Cannula Nasal Cannula Nasal Cannula Nasal Cannula O2 Flow Rate 4.0 4.0 4.0 4.0 04/02/19 04/03/19 04/03/19 04/03/19 23:57 03:52 07:00 07:27 Temp 99.1 98.3 98.3 99.1 98.3 98.3 Pulse 105 93 98 Resp 18 18 16 B/P (MAP) 121/80 (94) 121/77 (92) 126/81 (96) Pulse Ox 90 93 93 95 O2 Delivery Nasal Cannula Nasal Cannula Room Air Nasal Cannula O2 Flow Rate 4.0 4.0 4.0 Intake and Output 04/02/19 04/02/19 04/03/19 14:59 22:59 06:59 Intake Total 500 ml 460 ml Output Total 675 ml Balance 500 ml -215 ml CALEB CHAVEZ III DO April 03, 2019 10:29
--- NOTE | 2019-04-03 10:39 | NUR ---
SW following. Pt still on IV abx and no dc recommendation noted at this time. Will continue to eval needs.
[2019-04-03 11:00] VITALS: BP 117/71
--- NOTE | 2019-04-03 12:31 | PDOC ---
PULMONARY PROGRESS NOTES Subjective less cough, no soa Vitals Vital Signs Date Time Temp Pulse Resp B/P (MAP) Pulse Ox O2 Delivery O2 Flow Rate FiO2 04/03/19 12:09 93 Nasal Cannula 3.0 04/03/19 11:00 98.1 70 17 117/71 (86) 98.1 ROS: No Chest Pain General: Alert, No acute distress Lungs: Crackles (bases) Cardiovascular: S1 Abdomen: Soft Neuro Exam: Alert Extremities: No Edema Skin: Warm Labs Laboratory Tests Test 04/01/19 12:30 04/02/19 04:30 Erythrocyte Sedimentation Rate 67 (0-15) Creatinine 0.9 mg/dL (0.7-1.3) Estimated GFR (Cockcroft-Gault) 89.3 Impression . 1. The patient with progressive bilateral infiltrates along with emphysematous blebs and reactive adenopathy since the 15th of this month. He was hospitalized and treated with broad-spectrum antibiotics without any clinical improvement. His CTs have shown worsening infiltrates. The differential diagnosis could be broad. 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 Possibility of bronchiolitis obliterans organizing pneumonia would also be a consideration. S/P diagnostic bronchoscopy . NO PURULENT SECRETIONS 2. Underlying chronic obstructive pulmonary disease. 3. Underlying alcoholism, also may be contributing to recurrent pneumonias. Plan . 1. Continue with present broad-spectrum antibiotics. 2. Obtain hypersensitivity pneumonitis panel as an outpatient. 3. S/P bronchoscopy . Follow cultures 4. sedimentation rate. 67 5. Continue steroids and see the response to treatment. 6. Follow Infectious Disease recommendations as well. 7. follow all Bronch cultures DAMARI GOULD MD April 03, 2019 12:31
[2019-04-03] MEDS: traMADol 50 MG TABLET PO PRN (13:17)
--- NOTE | 2019-04-03 13:43 | PDOC2 ---
SETH NUNEZ [employer] 04/03/19 1342: CARDIAC CONSULT DATE OF CONSULT Date of Consult DATE: 04/03/19 TIME: 13:42 REASON FOR CONSULT Reason for Consult: Tachycardia REFERRING PHYSICIAN Referring Physician: Dr. Beltre SOURCE Source: Chart review, Patient HISTORY OF PRESENT ILLNESS HISTORY OF PRESENT ILLNESS This is a 48 yo male who initially presented to [facility] secondary to shortness of breath recurrent PNA, despite antibiotic therapy. Due to worsening infiltrates, patient was transferred to [facility] for further evaluation and care. Has been tachycardia, which prompted this consult. Patient reports chronic history of tachycardiac since age 14. Was declined by the due to resting tachycardia. Has never been on rate controlling agents. Reports having thorough cardiac workup including EKG, echo, stress test, and lower extremity doppler about 3 years ago a [facility], which was unrevealing. Denies any chest pain, dizziness, diaphoresis, palpitations, nausea/vomiting, or LE edema. Work at [employer] for many years. PAST MEDICAL HISTORY Cardiovascular: No pertinent hx Pulmonary: Asthma, COPD, Pneumonia CENTRAL NERVOUS SYSTEM: Other (no pertinent hx) GI: No pertinent hx Heme/Onc: No pertinent hx Hepatobiliary: No pertinent hx Psych: Anxiety Musculoskeletal: low back pain Rheumatologic: No pertinent hx Infectious disease: No pertinent hx ENT: No pertinent hx Renal/: No pertinent hx Endocrine: No pertinent hx Dermatology: No pertinent hx PAST SURGICAL HISTORY Past Surgical History: Hernia Repair, Tonsillectomy, Other (back surgery, spinal stimulator implant ) FAMILY HISTORY Family History: Coronary Artery Disease (father ) SOCIAL HISTORY Smoke: Quit (2012) ALCOHOL: social Drugs: None Lives: with Family CURRENT MEDICATIONS CURRENT MEDICATIONS Current Medications Medications (Trade) Dose Ordered Sig/Lorie Route PRN Reason Start Time Stop Time Status Last Admin Dose Admin Benzonatate (Tessalon Perle) 100 mg TID PO 04/02/19 18:00 04/03/19 08:25 Guaifenesin/ Codeine Phosphate (Robitussin Ac) 10 ml TID PO 04/02/19 18:00 04/03/19 08:25 ALLERGIES ALLERGIES: Coded Allergies: morphine (Verified Adverse Reaction, Intermediate, Vomiting. Almost passed out., 04/02/19) ROS Review of System 14 point ROS conducted with pertinent positives noted above in HPI. PHYSICAL EXAM General: Alert, Oriented X3, Cooperative, No acute distress HEENT: Atraumatic Lungs: Other (bibasilar crackles ) Heart: Regular rate (SR/ ST), Normal S1, Normal S2 Abdomen: Soft Extremities: No edema, Normal pulses Skin: No significant lesion Neuro: Normal speech, Sensation intact Psych/Mental Status: Mental status NL, Mood NL MUSCULOSKELETAL: Osteoarthritic changes both hands VITALS VITALS Vital Signs Date Time Temp Pulse Resp B/P (MAP) Pulse Ox O2 Delivery O2 Flow Rate FiO2 04/03/19 13:17 19 93 Nasal Cannula 3.0 04/03/19 11:00 98.1 70 117/71 (86) 98.1 ASSESSMENT/PLAN ASSESSMENT/PLAN 1. Acute respiratory failure secondary to COPD and worsening pulmonary infiltrates 2. Tachycardia, sinus. Reactive. Better controlled this afternoon 3. Hypokalemia Recommendations TSH, Mg level Replace k Supportive care Lung optimization as per pulm CHELA PACHECO MD 04/03/19 1701: CARDIAC CONSULT ASSESSMENT/PLAN ASSESSMENT/PLAN Patient seen and examined. Tachycardia likely secondary to pulmonary issues. No further testing needed. Supportive care. Thank you for this consultation. SETH NUNEZ APRN April 03, 2019 13:42 CHELA PACHECO MD April 03, 2019 17:01
[2019-04-03 15:00] VITALS: BP 160/101
[2019-04-03] MEDS ORDERED: POTASSIUM CHLORIDE 20 MEQ TABLET.ER. PO ONE (16:45)
[2019-04-03 19:20] VITALS: BP 128/92
[2019-04-03] MEDS: traZODone 100 MG TABLET. PO PRN (20:42)
[2019-04-03 23:43] VITALS: BP 123/77
[2019-04-04 03:41] VITALS: BP 114/82
[2019-04-04] MEDS: PIPERACILLIN/TAZOBACTAM 4.5 GM in IV NORMAL SALINE 100ML 100 ML IV SCH ×3 (05:29→17:51)
[2019-04-04] MEDS: IPRATRPIUM/ALBUTEROL 0.5/2.5MG 3 ML NEBU. NEB SCH ×5 (06:00→20:02)
[2019-04-04 07:00] VITALS: BP 117/86
[2019-04-04] MEDS: PANTOPRAZOLE 40 MG TABLET.DR. PO SCH (07:49)
[2019-04-04] MEDS: methylPREDNISolone SOD SUCC PF 125 MG/2 ML VIAL. IV SCH (07:50)
[2019-04-04] MEDS: guaiFENesin/CODEINE 100mg/10mg 5 ML LIQUID PO SCH ×3 (08:10→21:16)
[2019-04-04] MEDS: CETIRIZINE HCL 10 MG TABLET. PO SCH (08:11)
[2019-04-04] MEDS: LINEZOLID 600 MG TABLET PO SCH (08:11)
[2019-04-04] MEDS: MELOXICAM 7.5 MG TABLET PO SCH ×2 (08:12→09:12)
[2019-04-04] MEDS: LACTOBACILLUS RHAMNOSUS GG 1 CAPSULE. PO SCH ×2 (08:13→21:10)
[2019-04-04] MEDS: BENZONATATE 100 MG CAPSULE. PO SCH ×3 (09:00→21:09)
--- NOTE | 2019-04-04 09:32 | PDOC ---
[employer] PROGRESS NOTE Chief Complaint Chief Complaint 1. Acute hypoxic respiratory failure in an ex smoker-quit 2012 Differentials include, BOOP, hypersensitivity pneumonitis given 25 years of occupational hazard 2. Underlying COPD asthma type 3. ETOH ( 2 whiskey) 4. Bullae on CT chest [place] 5. Neg BC in [place] History of Present Illness History of Present Illness Patient seen and examined He is less tachypneic and tachycardic His Billie is present Discussed with his RN as well as his Vitals Vitals Vital Signs Date Time Temp Pulse Resp B/P (MAP) Pulse Ox O2 Delivery O2 Flow Rate FiO2 04/04/19 09:15 91 Nasal Cannula 2.0 04/04/19 07:00 98.4 92 16 117/86 (96) 98.4 Physical Exam Physical Exam GENERAL: Weak. +cough HEENT: Normocephalic, atraumatic. Oral mucosa moist. No thrush. No oropharyngeal exudate. Dentition fair. Nasal O2. NECK: Supple. No lymphadenopathy. No JVD. LUNGS: Decreased breath sounds with few expiratory rhonchi. HEART: S1, S2. Tachycardic at 120 beats per minutes. ABDOMEN: Soft, nontender, nondistended. No rebound, no guarding. EXTREMITIES: No edema, no cyanosis. DERMATOLOGIC: Warm, dry, no generalized rash. BACK: Noted some curvature. No CVA tenderness. Spinal stimulator site looks okay. Previous back surgery site looks okay. NEUROLOGIC: Extremely weak MUSCULOSKELETAL: No joint effusion, no decrease in range of motion. PSYCHIATRIC: Cooperative with appropriate mood and affect. General: Alert, Oriented X3, Cooperative, No acute distress Heart: Regular rate (SR/ ST), Normal S1, Normal S2 Lungs: Crackles (bases) Abdomen: Soft Extremities: No edema, Normal pulses Skin: No significant lesion Labs Labs: Laboratory Tests Test 04/03/19 17:00 Magnesium Level 2.4 mg/dL (1.8-2.4) Thyroid Stimulating Hormone (TSH) 1.160 uIU/mL (0.358-3.74) Review of Systems Review of Systems co weakness co hunger Assessment and Plan Assessmemt and Plan 1. Acute hypoxic respiratory failure in an ex smoker-quit 2012 Differentials include, BOOP, hypersensitivity pneumonitis given 25 years of occupational hazard 2. Underlying COPD asthma type 3. ETOH ( 2 whiskey) 4. Bullae on CT chest [place] 5. Neg BC in [place] Plan IV Zyvox, and Levaquin, Zosyn Nebs O2 Home meds DVT proph IV steroids Appreciate cards input Comment Review of Relevant I have reviewed the following items kim (where applicable) has been applied. Labs Laboratory Tests Test 04/03/19 17:00 Magnesium Level 2.4 mg/dL (1.8-2.4) Thyroid Stimulating Hormone (TSH) 1.160 uIU/mL (0.358-3.74) Laboratory Tests Test 04/03/19 17:00 Magnesium Level 2.4 mg/dL (1.8-2.4) Thyroid Stimulating Hormone (TSH) 1.160 uIU/mL (0.358-3.74) Microbiology 04/02/19 AFB Specimen Processing Tissue - Final, Resulted 04/02/19 Acid Fast Bacilli Culture, Resulted Pending 04/02/19 Gram Stain - Final, Resulted 04/02/19 Fungal Culture, Resulted Pending 04/02/19 Fungal Culture Result 1, Resulted Pending Medications Current Medications Acetaminophen (Tylenol) 650 mg PRN Q6HRS PRN PO MILD PAIN 1-3; Start 03/31/19 at 15:30 Albuterol Sulfate (Ventolin Neb Soln) 2.5 mg PRN Q4HRS PRN NEB SHORTNESS OF BREATH; Start 03/31/19 at 15:30 Benzonatate (Tessalon Perle) 100 mg PRN TID PRN PO cough 1ST CHOICE Last administered on 04/01/19at 21:33; Start 03/31/19 at 15:30; Stop 04/02/19 at 17:21; Status DC Cetirizine HCl (ZyrTEC) 5 mg DAILY PO Last administered on 04/04/19at 08:11; Start 04/01/19 at 09:00 Heparin Sodium (Porcine) (Heparin Sodium) 5,000 unit Q8HRS SQ Last administered on 03/31/19at 18:00; Start 03/31/19 at 16:00; Stop 03/31/19 at 18:22; Status DC Albuterol/ Ipratropium (Duoneb) 3 ml RTQID NEB ; Start 03/31/19 at 16:00; Stop 03/31/19 at 16:23; Status DC Lactobacillus Rhamnosus (Culturelle) 1 cap BID PO Last administered on 04/04/19 08:13; Start 03/31/19 at 21:00 Meloxicam (Mobic) 7.5 mg DAILY PO Last administered on 04/04/19 08:12; Start 04/01/19 at 09:00 Methocarbamol (Robaxin) 500 mg PRN Q8HRS PRN PO MUSCLE SPASMS; Start 03/31/19 at 15:30 Ondansetron HCl (Zofran) 4 mg PRN Q8HRS PRN IV NAUSEA/VOMITING Last adminis tered on 04/01/19 18:15; Start 03/31/19 at 15:30 Pantoprazole Sodium (Protonix) 40 mg DAILYAC PO Last administered on 04/04/19 07:49; Start 03/31/19 at 16:30 Piperacillin Sod/ Tazobactam Sod (Zosyn Per Pharmacy) 1 each PRN DAILY PRN MC SEE COMMENTS; Start 03/31/19 at 15:30 Pseudoephedrine HCl (Sudafed 12-Hour) 120 mg PRN QHS PRN PO NASAL CONGESTION; Start 03/31/19 at 15:30 Vancomycin HCl (Vanco Per Pharmacy) 1 each PRN DAILY PRN MC SEE COMMENTS Last administered on 04/01/19at 09:39; Start 03/31/19 at 15:30; Stop 04/01/19 at 09:54; Status DC Guaifenesin (Mucinex) 600 mg BID PO Last administered on 04/02/19at 15:02; Start 03/31/19 at 21:00; Stop 04/02/19 at 17:21; Status DC Methylprednisolone Sodium Succinate (SOLU-Medrol 125MG VIAL) 60 mg [id number] IV Last administered on 04/04/19 07:50; Start 03/31/19 at 18:00 Tramadol HCl (Ultram) 100 mg PRN Q6HRS PRN PO MODERATE PAIN Last administered on 04/03/19 13:17; Start 03/31/19 at 15:30 Trazodone HCl (Desyrel) 200 mg PRN QHS PRN PO INSOMNIA Last administered on 04/03/19 20:42; Start 03/31/19 at 15:30 Piperacillin Sod/ Tazobactam Sod 4.5 gm/Sodium Chloride 100 ml @ 200 mls/hr Q6HRS IV Last administered on 04/04/19at 05:29; Start 03/31/19 at 18:00 Vancomycin HCl 1.5 gm/Sodium Chloride 500 ml @ 250 mls/hr Q8H IV Last administered on 04/01/19at 05:39; Start 03/31/19 at 21:00; Stop 04/01/19 at 09:53; Status DC Albuterol/ Ipratropium (Duoneb) 3 ml Q4HRS W/A NEB Last administered on 04/04/19at 09:14; Start 03/31/19 at 18:00 Guaifenesin/ Codeine Phosphate (Robitussin Ac) 10 ml PRN Q6HRS PRN PO COUGH 2ND CHOICE Last administered on 04/01/19at 21:33; Start 03/31/19 at 16:45; Stop 04/02/19 at 17:21; Status DC Levofloxacin (Levaquin) 750 mg 1X ONCE PO Last administered on 03/31/19at 22:04; Start 03/31/19 at 18:15; Stop 03/31/19 at 18:16; Status DC Levofloxacin (Levaquin) 750 mg DAILY16 PO Last administered on 04/03/19at 16:51; Start 04/01/19 at 16:00 Enoxaparin Sodium (Lovenox Per Pharmacy Prophylaxis Dosing) 1 each PRN DAILY PRN MC SEE COMMENTS; Start 03/31/19 at 18:15; Stop 04/01/19 at 09:29; Status DC Enoxaparin Sodium (Lovenox Per Pharmacy Prophylaxis Dosing) 1 each PRN DAILY PRN MC SEE COMMENTS; Start 03/31/19 at 18:45; Status UNV Enoxaparin Sodium (Lovenox 40mg Syringe) 40 mg Q24H SQ Last administered on 03/31/19at 22:05; Start 03/31/19 at 20:00; Stop 04/01/19 at 09:07; Status DC Potassium Chloride (Klor-Con) 40 meq 1X ONCE PO Last administered on 04/01/19at 11:20; Start 04/01/19 at 10:00; Stop 04/01/19 at 10:01; Status DC Linezolid (Zyvox) 600 mg BID PO Last administered on 04/04/19at 08:11; Start 04/01/19 at 10:30 Doxycycline Hyclate (Vibra-Tab) 100 mg BID PO ; Start 04/01/19 at 10:30; Stop 04/01/19 at 10:30; Status DC Ringer's Solution 1,000 ml @ 50 mls/hr Q20H IV ; Start 04/02/19 at 07:00; Stop 04/02/19 at 18:59; Status DC Midazolam HCl (Versed) 2 mg PRN 1X PRN IV PRIOR TO PROCEDURE; Start 04/02/19 at 06:30; Stop 04/03/19 at 06:29; Status DC Fentanyl Citrate (Fentanyl 2ml Vial) 25 mcg PRN Q5MIN PRN IV X 2 DOSES FOR PAIN; Start 04/02/19 at 06:30; Stop 04/03/19 at 06:29; Status DC Fentanyl Citrate (Fentanyl 2ml Vial) 50 mcg PRN Q5MIN PRN IV X 2 DOSES FOR PAIN; Start 04/02/19 at 06:30; Stop 04/03/19 at 06:29; Status DC Ringer's Solution 1,000 ml @ 125 mls/hr Q8H IV Last administered on 04/02/19at 11:08; Start 04/02/19 at 06:30; Stop 04/02/19 at 06:31; Status DC Lidocaine HCl (Xylocaine-Mpf 1% 2ml Vial) 2 ml 1X PRN PRN ID IV START; Start 04/02/19 at 06:30; Stop 04/03/19 at 06:29; Status DC Lidocaine HCl (Lidocaine 2% Viscous) 100 ml PRN 1X PRN MM MOUTH PAIN Last administered on 04/02/19at 10:55; Start 04/02/19 at 08:45; Stop 04/03/19 at 08:44; Status DC Lidocaine HCl (Lidocaine 1% 20ml Vial) 20 ml PRN 1X PRN INJ SEE COMMENTS Last administered on 04/02/19at 10:56; Start 04/02/19 at 08:45; Stop 04/03/19 at 08:44; Status DC Epinephrine HCl (Adrenalin) 1 mg PRN 1X PRN INJ SEE COMMENTS; Start 04/02/19 at 08:45; Stop 04/03/19 at 08:44; Status DC Lidocaine HCl 50 ml PRN 1X PRN MM SEE COMMENTS Last administered on 04/02/19at 10:55; Start 04/02/19 at 08:45; Stop 04/03/19 at 08:44; Status DC Epinephrine HCl (Adrenalin) 1 mg STK-MED ONCE .ROUTE ; Start 04/02/19 at 09:15; Stop 04/02/19 at 09:16; Status DC Lidocaine HCl (Lidocaine 1% 20ml Vial) 20 ml STK-MED ONCE .ROUTE ; Start 04/02/19 at 09:15; Stop 04/02/19 at 09:16; Status DC Lidocaine HCl (Lidocaine 2% Viscous) 100 ml STK-MED ONCE .ROUTE ; Start 04/02/19 at 09:15; Stop 04/02/19 at 09:16; Status DC Lidocaine HCl 50 ml STK-MED ONCE .ROUTE ; Start 04/02/19 at 09:15; Stop 04/02/19 at 09:16; Status DC Propofol 40 ml @ As Directed STK-MED ONCE IV ; Start 04/02/19 at 11:30; Stop 04/02/19 at 11:31; Status DC Lidocaine HCl (Lidocaine Pf 2% Vial) 5 ml STK-MED ONCE .ROUTE ; Start 04/02/19 at 11:30; Stop 04/02/19 at 11:31; Status DC Benzonatate (Tessalon Perle) 100 mg TID PO Last administered on 04/03/19at 20:42; Start 04/02/19 at 18:00 Guaifenesin/ Codeine Phosphate (Robitussin Ac) 10 ml TID PO Last administered on 04/04/19at 08:10; Start 04/02/19 at 18:00 Potassium Chloride (Klor-Con) 20 meq 1X ONCE PO Last administered on 04/03/19at 16:51; Start 04/03/19 at 16:45; Stop 04/03/19 at 16:46; Status DC Vitals/I & O Vital Sign - Last 24 Hours 04/03/19 04/03/19 04/03/19 04/03/19 11:00 12:09 13:17 14:20 Temp 98.1 98.1 Pulse 70 Resp 17 19 18 B/P (MAP) 117/71 (86) Pulse Ox 94 93 93 96 O2 Delivery Room Air Nasal Cannula Nasal Cannula Nasal Cannula O2 Flow Rate 3.0 3.0 3.0 04/03/19 04/03/19 04/03/19 04/03/19 15:00 16:17 19:20 20:30 Temp 98.5 98.3 98.5 98.3 Pulse 103 123 Resp 18 20 B/P (MAP) 160/101 (120) 128/92 (104) Pulse Ox 94 96 91 97 O2 Delivery Nasal Cannula Nasal Cannula Nasal Cannula Nasal Cannula O2 Flow Rate 4.0 3.0 4.0 3.0 04/03/19 04/04/19 04/04/19 04/04/19 23:43 03:41 07:00 09:15 Temp 98.3 98.1 98.4 98.3 98.1 98.4 Pulse 110 95 92 Resp 20 16 16 B/P (MAP) 123/77 (92) 114/82 (93) 117/86 (96) Pulse Ox 92 92 91 91 O2 Delivery Nasal Cannula Nasal Cannula Nasal Cannula Nasal Cannula O2 Flow Rate 2.0 2.0 2.0 2.0 Intake and Output 04/03/19 04/03/19 04/04/19 15:00 23:00 07:00 Intake Total 240 ml 300 ml Output Total 700 ml 450 ml Balance -700 ml -210 ml 300 ml CALEB CHAVEZ III DO Apr 04, 2019 09:32
[2019-04-04] MEDS: traMADol 50 MG TABLET PO PRN ×2 (10:54→21:16)
--- NOTE | 2019-04-04 10:57 | PDOC ---
PULMONARY PROGRESS NOTES Subjective less cough, no soa Vitals Vital Signs Date Time Temp Pulse Resp B/P (MAP) Pulse Ox O2 Delivery O2 Flow Rate FiO2 04/04/19 09:15 91 Nasal Cannula 2.0 04/04/19 07:00 98.4 92 16 117/86 (96) 98.4 ROS: No Chest Pain General: Alert, No acute distress Lungs: Crackles (bases, L> R) Cardiovascular: S1 Abdomen: Soft Neuro Exam: Alert Extremities: No Edema Skin: Warm Labs Laboratory Tests Test 04/03/19 17:00 Magnesium Level 2.4 mg/dL (1.8-2.4) Thyroid Stimulating Hormone (TSH) 1.160 uIU/mL (0.358-3.74) Laboratory Tests Test 04/03/19 17:00 Magnesium Level 2.4 mg/dL (1.8-2.4) Thyroid Stimulating Hormone (TSH) 1.160 uIU/mL (0.358-3.74) Impression . 1. The patient with progressive bilateral infiltrates along with emphysematous blebs and reactive adenopathy since the of this month. He was hospitalized and treated with broad-spectrum antibiotics without any clinical improvement. His CTs have shown worsening infiltrates. The differential diagnosis could be broad. 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 Possibility of bronchiolitis obliterans organizing pneumonia would also be a consideration. S/P diagnostic bronchoscopy . NO PURULENT SECRETIONS 2. Underlying chronic obstructive pulmonary disease. 3. Underlying alcoholism, also may be contributing to recurrent pneumonias. Plan . 1. Continue with present broad-spectrum antibiotics. CHANGE TO PER ID 2. Obtain hypersensitivity pneumonitis panel as an outpatient. 3. S/P bronchoscopy . Follow cultures 4. sedimentation rate. 67 5. Continue steroids , start tapering the dose 6. Follow Infectious Disease recommendations . All w/u neg so far. Legionella Ag, Pneumococcal Ag Neg 7. follow all Bronch cultures 8. repeat cxr today 9. Possible dc home by Saturday/ will need 6 min walk DAMARI GOULD MD Apr 04, 2019 10:57
[2019-04-04 11:00] VITALS: BP 128/86
--- NOTE | 2019-04-04 12:00 | PDOC ---
Infectious Disease Note Subjective Subjective Feeling better over-all Less O2 requirements, currently on 2L Appetite improving No F/C/S/N/V/D/SOA ROS ROS per HPI otherwise neg Vital Sign Vital Signs Vital Signs Date Time Temp Pulse Resp B/P (MAP) Pulse Ox O2 Delivery O2 Flow Rate FiO2 04/04/19 11:00 98.4 106 16 128/86 (100) 95 Nasal Cannula 2.0 98.4 Physical Exam PHYSICAL EXAM GENERAL: Sitting in the chair, alert, eating potato chips HEENT: Pupils equal, oral mucosa moist. NECK: Supple. No lymphadenopathy. No JVD. LUNGS: Improved aeration HEART: S1, S2. ABDOMEN: Soft EXTREMITIES: No edema, no cyanosis. DERMATOLOGIC: Warm, dry, no generalized rash. NEUROLOGIC: Alert, responding appropriately Labs Lab Laboratory Tests Test 04/03/19 17:00 Magnesium Level 2.4 mg/dL (1.8-2.4) Thyroid Stimulating Hormone (TSH) 1.160 uIU/mL (0.358-3.74) Micro BRONCH RES 1 Preliminary No growth in 36 - 48 hours. AFB CULTURE GRAM STAIN Final Negative Objective Assessment Acute hypoxic respiratory failure, on nasal O2. Diffuse infiltrates since Mar 04 2019 unresolving pneumonia treated with doxycycline and IV antibiotics from 03/17 through 03/20 at [facility] followed by cefepime from 03/20 through 03/27, readmitted with worsening symptoms and persistent infiltrates Now on IV vancomycin, Zosyn and Levaquin. - Sputum cultures from [facility] positive for yeast likely contaminant History of chronic obstructive pulmonary disease with asthma. Leukocytosis. on steroids Protein-calorie malnutrition. Plan Plan of Care cont Zosyn, Levaquin, Zyvox Steroids Probiotics Cultures neg so far f/u urine legionella and strep pneum ag neg Supportive care D/w Wean soon Attending Co-Sign Attending Co-Sign The patient was seen and interviewed as well as examined at the bedside. The chart was reviewed. The case was discussed. Agree with the plan of care. SHIVANI SINGH APRN Apr 04, 2019 12:00 OG FORD MD Apr 04, 2019 18:16
--- NOTE | 2019-04-04 12:06 | RAD ---
EXAM: CHEST 1 VIEW History: Pneumonia COMPARISON: 03/31/2019 TECHNIQUE: Single portable radiograph of the chest FINDINGS: The cardiac silhouette is unremarkable. Scattered patchy airspace opacities identified in the bilateral lungs likely infiltrates similar to prior exam. The costophrenic sulci are clear and well demarcated. IMPRESSION: Scattered patchy airspace opacities identified in the bilateral lungs likely infiltrates/pneumonia similar to prior exam. Electronically signed by: Kamran Beltran MD (04/04/2019 12:03 PM) [facility]
[2019-04-04 15:00] VITALS: BP 119/84
[2019-04-04 19:42] VITALS: BP 121/87
[2019-04-04] MEDS: traZODone 100 MG TABLET. PO PRN (21:16)
--- NOTE | 2019-04-04 22:17 | NUR ---
Pt had PO Zyvox ordered- no stock in [facility]; notified by pharmacy that we are currently out of PO Zyvox and that patient will receive x2 doses of IV Zyvox for coverage until hospital can obtain PO Zyvox stock.
[2019-04-04 23:28] VITALS: BP 114/73
[2019-04-05] MEDS: PIPERACILLIN/TAZOBACTAM 4.5 GM in IV NORMAL SALINE 100ML 100 ML IV SCH ×3 (00:23→11:58)
[2019-04-05] MEDS ORDERED: LIDO:MAALOX 1:1 20 ML SINGLE DOSE. PO PRN ×2 (00:45)
[2019-04-05 03:19] VITALS: BP 112/78
[2019-04-05 05:20] LABS: BASO % 0 % (0-3); EOS # 0.9 x10^3/uL (0.0-0.7); EOS % 6 % (0-3); HEMATOCRIT 42.5 % (39.0-53.0); HEMOGLOBIN 14.1 g/dL (13.0-17.5); LYMPH % 21 % (24-48); MEAN CORPUSCULAR HEMOGLOBIN 30 pg (25-35); MEAN CORPUSCULAR HGB CONC 33 g/dL (31-37); MEAN CORPUSCULAR VOLUME 91 fL (79-100); MONO % 7 % (0-9); NEUT # 9.2 x10^3uL (1.8-7.7); NEUT % 65 % (31-73); PLATELET COUNT 369 x10^3/uL (140-400); RED BLOOD COUNT 4.65 x10^6/uL (4.30-5.70); RED CELL DISTRIBUTION WIDTH 13.5 % (11.5-14.5); WHITE BLOOD COUNT 14.1 x10^3/uL (4.0-11.0)
[2019-04-05 05:53] LABS: CALCIUM 8.6 mg/dL (8.5-10.1); CREATININE 1.2 mg/dL (0.7-1.3); GFR 64.1; POTASSIUM 3.6 mmol/L (3.5-5.1)
[2019-04-05 07:00] VITALS: BP 118/83
[2019-04-05] MEDS: IPRATRPIUM/ALBUTEROL 0.5/2.5MG 3 ML NEBU. NEB SCH ×5 (08:13→19:48)
[2019-04-05] MEDS: PANTOPRAZOLE 40 MG TABLET.DR. PO SCH (08:44)
[2019-04-05] MEDS: methylPREDNISolone SOD SUCC PF 125 MG/2 ML VIAL. IV SCH (08:45)
[2019-04-05] MEDS: LACTOBACILLUS RHAMNOSUS GG 1 CAPSULE. PO SCH ×2 (08:46→21:13)
[2019-04-05] MEDS: CETIRIZINE HCL 10 MG TABLET. PO SCH (08:47)
[2019-04-05] MEDS: BENZONATATE 100 MG CAPSULE. PO SCH ×3 (08:47→21:13)
[2019-04-05] MEDS: guaiFENesin/CODEINE 100mg/10mg 5 ML LIQUID PO SCH ×3 (08:56→21:13)
[2019-04-05 11:00] VITALS: BP 128/74
--- NOTE | 2019-04-05 11:32 | PDOC ---
[employer] PROGRESS NOTE Chief Complaint Chief Complaint 1. Acute hypoxic respiratory failure in an ex smoker-quit 2012 Differentials include, BOOP, hypersensitivity pneumonitis given 25 years of occupational hazard 2. Underlying COPD asthma type 3. ETOH ( 2 whiskey) 4. Bullae on CT chest [place] 5. Neg BC in [place] History of Present Illness History of Present Illness Patient seen and examined He is less tachypneic and tachycardic Discussed with his RN Vitals Vitals Vital Signs Date Time Temp Pulse Resp B/P (MAP) Pulse Ox O2 Delivery O2 Flow Rate FiO2 04/05/19 08:15 94 Nasal Cannula 2.0 04/05/19 07:00 99.1 124 16 118/83 (95) 99.1 Physical Exam Physical Exam GENERAL: Sitting in the chair, alert HEENT: Pupils equal, oral mucosa moist. NECK: Supple. No lymphadenopathy. No JVD. LUNGS: Improved aeration HEART: S1, S2. ABDOMEN: Soft EXTREMITIES: No edema, no cyanosis. DERMATOLOGIC: Warm, dry, no generalized rash. NEUROLOGIC: Alert, responding appropriately General: Alert, Oriented X3, Cooperative, No acute distress Heart: Regular rate (SR/ ST), Normal S1, Normal S2 Lungs: Crackles (bases, L> R) Abdomen: Soft Extremities: No edema, Normal pulses Skin: No significant lesion Labs Labs: Laboratory Tests Test 04/05/19 04:45 White Blood Count 14.1 x10^3/uL (4.0-11.0) Red Blood Count 4.65 x10^6/uL (4.30-5.70) Hemoglobin 14.1 g/dL (13.0-17.5) Hematocrit 42.5 % (39.0-53.0) Mean Corpuscular Volume 91 fL (79-100) Mean Corpuscular Hemoglobin 30 pg (25-35) Mean Corpuscular Hemoglobin Concent 33 g/dL (31-37) Red Cell Distribution Width 13.5 % (11.5-14.5) Platelet Count 369 x10^3/uL (140-400) Neutrophils (%) (Auto) 65 % (31-73) Lymphocytes (%) (Auto) 21 % (24-48) Monocytes (%) (Auto) 7 % (0-9) Eosinophils (%) (Auto) 6 % (0-3) Basophils (%) (Auto) 0 % (0-3) Neutrophils # (Auto) 9.2 x10^3uL (1.8-7.7) Lymphocytes # (Auto) 3.0 x10^3/uL (1.0-4.8) Monocytes # (Auto) 1.0 x10^3/uL (0.0-1.1) Eosinophils # (Auto) 0.9 x10^3/uL (0.0-0.7) Basophils # (Auto) 0.0 x10^3/uL (0.0-0.2) Sodium Level 140 mmol/L (136-145) Potassium Level 3.6 mmol/L (3.5-5.1) Chloride Level 103 mmol/L (98-107) Carbon Dioxide Level 24 mmol/L (21-32) Anion Gap 13 (6-14) Blood Urea Nitrogen 18 mg/dL (8-26) Creatinine 1.2 mg/dL (0.7-1.3) Estimated GFR (Cockcroft-Gault) 64.1 Glucose Level 107 mg/dL (70-99) Calcium Level 8.6 mg/dL (8.5-10.1) Review of Systems Review of Systems Complains of weakness and shortness of breath Assessment and Plan Assessmemt and Plan Assessmemt and Plan 1. Acute hypoxic respiratory failure in an ex smoker-quit 2012 Differentials include, BOOP, hypersensitivity pneumonitis given 25 years of occupational hazard 2. Underlying COPD asthma type 3. ETOH ( 2 whiskey) 4. Bullae on CT chest [place] 5. Neg BC in [place] Plan IV Zyvox, and Levaquin, Zosyn Nebs O2 Home meds DVT proph IV steroids Appreciate cards input Comment Review of Relevant I have reviewed the following items kim (where applicable) has been applied. Labs Laboratory Tests Test 04/03/19 17:00 04/05/19 04:45 Magnesium Level 2.4 mg/dL (1.8-2.4) Thyroid Stimulating Hormone (TSH) 1.160 uIU/mL (0.358-3.74) White Blood Count 14.1 x10^3/uL (4.0-11.0) Red Blood Count 4.65 x10^6/uL (4.30-5.70) Hemoglobin 14.1 g/dL (13.0-17.5) Hematocrit 42.5 % (39.0-53.0) Mean Corpuscular Volume 91 fL (79-100) Mean Corpuscular Hemoglobin 30 pg (25-35) Mean Corpuscular Hemoglobin Concent 33 g/dL (31-37) Red Cell Distribution Width 13.5 % (11.5-14.5) Platelet Count 369 x10^3/uL (140-400) Neutrophils (%) (Auto) 65 % (31-73) Lymphocytes (%) (Auto) 21 % (24-48) Monocytes (%) (Auto) 7 % (0-9) Eosinophils (%) (Auto) 6 % (0-3) Basophils (%) (Auto) 0 % (0-3) Neutrophils # (Auto) 9.2 x10^3uL (1.8-7.7) Lymphocytes # (Auto) 3.0 x10^3/uL (1.0-4.8) Monocytes # (Auto) 1.0 x10^3/uL (0.0-1.1) Eosinophils # (Auto) 0.9 x10^3/uL (0.0-0.7) Basophils # (Auto) 0.0 x10^3/uL (0.0-0.2) Sodium Level 140 mmol/L (136-145) Potassium Level 3.6 mmol/L (3.5-5.1) Chloride Level 103 mmol/L (98-107) Carbon Dioxide Level 24 mmol/L (21-32) Anion Gap 13 (6-14) Blood Urea Nitrogen 18 mg/dL (8-26) Creatinine 1.2 mg/dL (0.7-1.3) Estimated GFR (Cockcroft-Gault) 64.1 Glucose Level 107 mg/dL (70-99) Calcium Level 8.6 mg/dL (8.5-10.1) Laboratory Tests Test 04/05/19 04:45 White Blood Count 14.1 x10^3/uL (4.0-11.0) Red Blood Count 4.65 x10^6/uL (4.30-5.70) Hemoglobin 14.1 g/dL (13.0-17.5) Hematocrit 42.5 % (39.0-53.0) Mean Corpuscular Volume 91 fL (79-100) Mean Corpuscular Hemoglobin 30 pg (25-35) Mean Corpuscular Hemoglobin Concent 33 g/dL (31-37) Red Cell Distribution Width 13.5 % (11.5-14.5) Platelet Count 369 x10^3/uL (140-400) Neutrophils (%) (Auto) 65 % (31-73) Lymphocytes (%) (Auto) 21 % (24-48) Monocytes (%) (Auto) 7 % (0-9) Eosinophils (%) (Auto) 6 % (0-3) Basophils (%) (Auto) 0 % (0-3) Neutrophils # (Auto) 9.2 x10^3uL (1.8-7.7) Lymphocytes # (Auto) 3.0 x10^3/uL (1.0-4.8) Monocytes # (Auto) 1.0 x10^3/uL (0.0-1.1) Eosinophils # (Auto) 0.9 x10^3/uL (0.0-0.7) Basophils # (Auto) 0.0 x10^3/uL (0.0-0.2) Sodium Level 140 mmol/L (136-145) Potassium Level 3.6 mmol/L (3.5-5.1) Chloride Level 103 mmol/L (98-107) Carbon Dioxide Level 24 mmol/L (21-32) Anion Gap 13 (6-14) Blood Urea Nitrogen 18 mg/dL (8-26) Creatinine 1.2 mg/dL (0.7-1.3) Estimated GFR (Cockcroft-Gault) 64.1 Glucose Level 107 mg/dL (70-99) Calcium Level 8.6 mg/dL (8.5-10.1) Microbiology 04/02/19 AFB Specimen Processing Tissue - Final, Resulted 04/02/19 Acid Fast Bacilli Culture, Resulted Pending 04/02/19 Gram Stain - Final, Resulted 04/02/19 Fungal Culture, Resulted Pending 04/02/19 Fungal Culture Result 1, Resulted Pending Medications Current Medications Acetaminophen (Tylenol) 650 mg PRN Q6HRS PRN PO MILD PAIN 1-3; Start 03/31/19 at 15:30 Albuterol Sulfate (Ventolin Neb Soln) 2.5 mg PRN Q4HRS PRN NEB SHORTNESS OF BREATH; Start 03/31/19 at 15:30 Benzonatate (Tessalon Perle) 100 mg PRN TID PRN PO cough 1ST CHOICE Last administered on 04/01/19at 21:33; Start 03/31/19 at 15:30; Stop 04/02/19 at 17:21; Status DC Cetirizine HCl (ZyrTEC) 5 mg DAILY PO Last administered on 04/05/19 08:47; Start 04/01/19 at 09:00 Heparin Sodium (Porcine) (Heparin Sodium) 5,000 unit Q8HRS SQ Last administered on 03/31/19at 18:00; Start 03/31/19 at 16:00; Stop 03/31/19 at 18:22; Status DC Albuterol/ Ipratropium (Duoneb) 3 ml RTQID NEB ; Start 03/31/19 at 16:00; Stop 03/31/19 at 16:23; Status DC Lactobacillus Rhamnosus (Culturelle) 1 cap BID PO Last administered on 04/05/19 08:46; Start 03/31/19 at 21:00 Meloxicam (Mobic) 7.5 mg DAILY PO Last administered on 04/04/19 09:12; Start 04/01/19 at 09:00 Methocarbamol (Robaxin) 500 mg PRN Q8HRS PRN PO MUSCLE SPASMS; Start 03/31/19 at 15:30 Ondansetron HCl (Zofran) 4 mg PRN Q8HRS PRN IV NAUSEA/VOMITING Last administered on 04/01/19 18:15; Start 03/31/19 at 15:30 Pantoprazole Sodium (Protonix) 40 mg DAILYAC PO Last administered on 04/05/19 08:44; Start 03/31/19 at 16:30 Piperacillin Sod/ Tazobactam Sod (Zosyn Per Pharmacy) 1 each PRN DAILY PRN MC SEE COMMENTS; Start 03/31/19 at 15:30 Pseudoephedrine HCl (Sudafed 12-Hour) 120 mg PRN QHS PRN PO NASAL CONGESTION; Start 03/31/19 at 15:30 Vancomycin HCl (Vanco Per Pharmacy) 1 each PRN DAILY PRN MC SEE COMMENTS Last administered on 04/01/19at 09:39; Start 03/31/19 at 15:30; Stop 04/01/19 at 09:54; Status DC Guaifenesin (Mucinex) 600 mg BID PO Last administered on 04/02/19at 15:02; Start 03/31/19 at 21:00; Stop 04/02/19 at 17:21; Status DC Methylprednisolone Sodium Succinate (SOLU-Medrol 125MG VIAL) 60 mg [id number] IV Last administered on 04/04/19at 07:50; Start 03/31/19 at 18:00; Stop 04/04/19 at 10:55; Status DC Tramadol HCl (Ultram) 100 mg PRN Q6HRS PRN PO MODERATE PAIN Last administered on 04/04/19 21:16; Start 03/31/19 at 15:30 Trazodone HCl (Desyrel) 200 mg PRN QHS PRN PO INSOMNIA Last administered on 04/04/19 21:16; Start 03/31/19 at 15:30 Piperacillin Sod/ Tazobactam Sod 4.5 gm/Sodium Chloride 100 ml @ 200 mls/hr Q6HRS IV Last administered on 04/05/19 05:20; Start 03/31/19 at 18:00 Vancomycin HCl 1.5 gm/Sodium Chloride 500 ml @ 250 mls/hr Q8H IV Last administered on 04/01/19at 05:39; Start 03/31/19 at 21:00; Stop 04/01/19 at 0 9:53; Status DC Albuterol/ Ipratropium (Duoneb) 3 ml Q4HRS W/A NEB Last administered on 04/05/19at 08:13; Start 03/31/19 at 18:00 Guaifenesin/ Codeine Phosphate (Robitussin Ac) 10 ml PRN Q6HRS PRN PO COUGH 2ND CHOICE Last administered on 04/01/19at 21:33; Start 03/31/19 at 16:45; Stop 04/02/19 at 17:21; Status DC Levofloxacin (Levaquin) 750 mg 1X ONCE PO Last administered on 03/31/19at 22:04; Start 03/31/19 at 18:15; Stop 03/31/19 at 18:16; Status DC Levofloxacin (Levaquin) 750 mg DAILY16 PO Last administered on 04/04/19at 15:40; Start 04/01/19 at 16:00 Enoxaparin Sodium (Lovenox Per Pharmacy Prophylaxis Dosing) 1 each PRN DAILY PRN MC SEE COMMENTS; Start 03/31/19 at 18:15; Stop 04/01/19 at 09:29; Status DC Enoxaparin Sodium (Lovenox Per Pharmacy Prophylaxis Dosing) 1 each PRN DAILY PRN MC SEE COMMENTS; Start 03/31/19 at 18:45; Status UNV Enoxaparin Sodium (Lovenox 40mg Syringe) 40 mg Q24H SQ Last administered on 03/31/19at 22:05; Start 03/31/19 at 20:00; Stop 04/01/19 at 09:07; Status DC Potassium Chloride (Klor-Con) 40 meq 1X ONCE PO Last administered on 04/01/19at 11:20; Start 04/01/19 at 10:00; Stop 04/01/19 at 10:01; Status DC Linezolid (Zyvox) 600 mg BID PO Last administered on 04/04/19at 08:11; Start 04/01/19 at 10:30; Stop 04/04/19 at 20:58; Status DC Doxycycline Hyclate (Vibra-Tab) 100 mg BID PO ; Start 04/01/19 at 10:30; Stop 04/01/19 at 10:30; Status DC Ringer's Solution 1,000 ml @ 50 mls/hr Q20H IV ; Start 04/02/19 at 07:00; Stop 04/02/19 at 18:59; Status DC Midazolam HCl (Versed) 2 mg PRN 1X PRN IV PRIOR TO PROCEDURE; Start 04/02/19 at 06:30; Stop 04/03/19 at 06:29; Status DC Fentanyl Citrate (Fentanyl 2ml Vial) 25 mcg PRN Q5MIN PRN IV X 2 DOSES FOR PAIN; Start 04/02/19 at 06:30; Stop 04/03/19 at 06:29; Status DC Fentanyl Citrate (Fentanyl 2ml Vial) 50 mcg PRN Q5MIN PRN IV X 2 DOSES FOR PAIN; Start 04/02/19 at 06:30; Stop 04/03/19 at 06:29; Status DC Ringer's Solution 1,000 ml @ 125 mls/hr Q8H IV Last administered on 04/02/19at 11:08; Start 04/02/19 at 06:30; Stop 04/02/19 at 06:31; Status DC Lidocaine HCl (Xylocaine-Mpf 1% 2ml Vial) 2 ml 1X PRN PRN ID IV START; Start 04/02/19 at 06:30; Stop 04/03/19 at 06:29; Status DC Lidocaine HCl (Lidocaine 2% Viscous) 100 ml PRN 1X PRN MM MOUTH PAIN Last administered on 04/02/19at 10:55; Start 04/02/19 at 08:45; Stop 04/03/19 at 08:44; Status DC Lidocaine HCl (Lidocaine 1% 20ml Vial) 20 ml PRN 1X PRN INJ SEE COMMENTS Last administered on 04/02/19at 10:56; Start 04/02/19 at 08:45; Stop 04/03/19 at 08:44; Status DC Epinephrine HCl (Adrenalin) 1 mg PRN 1X PRN INJ SEE COMMENTS; Start 04/02/19 at 08:45; Stop 04/03/19 at 08:44; Status DC Lidocaine HCl 50 ml PRN 1X PRN MM SEE COMMENTS Last administered on 04/02/19at 10:55; Start 04/02/19 at 08:45; Stop 04/03/19 at 08:44; Status DC Epinephrine HCl (Adrenalin) 1 mg STK-MED ONCE .ROUTE ; Start 04/02/19 at 09:15; Stop 04/02/19 at 09:16; Status DC Lidocaine HCl (Lidocaine 1% 20ml Vial) 20 ml STK-MED ONCE .ROUTE ; Start 04/02/19 at 09:15; Stop 04/02/19 at 09:16; Status DC Lidocaine HCl (Lidocaine 2% Viscous) 100 ml STK-MED ONCE .ROUTE ; Start 04/02/19 at 09:15; Stop 04/02/19 at 09:16; Status DC Lidocaine HCl 50 ml STK-MED ONCE .ROUTE ; Start 04/02/19 at 09:15; Stop 04/02/19 at 09:16; Status DC Propofol 40 ml @ As Directed STK-MED ONCE IV ; Start 04/02/19 at 11:30; Stop 04/02/19 at 11:31; Status DC Lidocaine HCl (Lidocaine Pf 2% Vial) 5 ml STK-MED ONCE .ROUTE ; Start 04/02/19 at 11:30; Stop 04/02/19 at 11:31; Status DC Benzonatate (Tessalon Perle) 100 mg TID PO Last administered on 04/05/19at 08:47; Start 04/02/19 at 18:00 Guaifenesin/ Codeine Phosphate (Robitussin Ac) 10 ml TID PO Last administered on 04/05/19at 08:56; Start 04/02/19 at 18:00 Potassium Chloride (Klor-Con) 20 meq 1X ONCE PO Last administered on 04/03/19at 16:51; Start 04/03/19 at 16:45; Stop 04/03/19 at 16:46; Status DC Methylprednisolone Sodium Succinate (SOLU-Medrol 125MG VIAL) 60 mg DAILY IV Last administered on 04/05/19at 08:45; Start 04/05/19 at 09:00 Linezolid (Zyvox) 600 mg BID PO ; Start 04/05/19 at 21:00 Linezolid/Dextrose 300 ml @ 300 mls/hr Q12HR IV Last administered on 04/05/19at 08:46; Start 04/04/19 at 21:00; Stop 04/05/19 at 09:59; Status DC Multi-Ingredient Mouthwash/Gargle (Gi Cocktail) 20 ml PRN Q4HRS PRN PO CHEST PAIN; Start 04/05/19 at 00:45; Status UNV Multi-Ingredient Mouthwash/Gargle (Gi Cocktail) 20 ml PRN QID PRN PO CHEST PAIN Last administered on 04/05/19at 01:03; Start 04/05/19 at 00:45 Vitals/I & O Vital Sign - Last 24 Hours 04/04/19 04/04/19 04/04/19 04/04/19 12:02 15:00 16:09 19:42 Temp 98.2 99.2 98.2 99.2 Pulse 112 121 Resp 16 B/P (MAP) 119/84 (96) 121/87 (98) Pulse Ox 90 97 90 O2 Delivery Nasal Cannula Nasal Cannula Nasal Cannula Nasal Cannula O2 Flow Rate 2.0 2.0 2.0 2.0 04/04/19 04/04/19 04/04/19 04/04/19 20:00 20:02 21:16 22:20 O2 Delivery Nasal Cannula Nasal Cannula Nasal Cannula Nasal Cannula O2 Flow Rate 2.0 2.0 2.0 2.0 04/04/19 04/05/19 04/05/19 04/05/19 23:28 03:19 07:00 08:15 Temp 98.5 98.5 99.1 98.5 98.5 99.1 Pulse 119 103 124 Resp 16 16 16 B/P (MAP) 114/73 (87) 112/78 (89) 118/83 (95) Pulse Ox 90 89 92 94 O2 Delivery Nasal Cannula Nasal Cannula Nasal Cannula Nasal Cannula O2 Flow Rate 2.0 2.0 2.0 2.0 Intake and Output 04/04/19 04/04/19 04/05/19 15:00 23:00 07:00 Intake Total 450 ml 250 ml 410 ml Balance 450 ml 250 ml 410 ml CALEB CHAVEZ III, DO Apr 05, 2019 11:32
[2019-04-05] MEDS: traMADol 50 MG TABLET PO PRN ×2 (12:00→21:13)
--- NOTE | 2019-04-05 12:11 | PDOC ---
Infectious Disease Note Subjective Subjective No fevers last 72 hours Feeling pretty good Remains on 2L O2 Some SOA with activities - better Denies CP/N/V/D ROS ROS per HPI Vital Sign Vital Signs Vital Signs Date Time Temp Pulse Resp B/P (MAP) Pulse Ox O2 Delivery O2 Flow Rate FiO2 04/05/19 08:15 94 Nasal Cannula 2.0 04/05/19 07:00 99.1 124 16 118/83 (95) 99.1 Physical Exam PHYSICAL EXAM GENERAL: Sitting in the chair, alert HEENT: Oral cavity clear NECK: Supple. LUNGS: Improved aeration HEART: S1, S2. ABDOMEN: Soft EXTREMITIES: No edema, no cyanosis. DERMATOLOGIC: Warm, dry, no generalized rash. NEUROLOGIC: Alert, responding appropriately Labs Lab Laboratory Tests Test 04/05/19 04:45 White Blood Count 14.1 x10^3/uL (4.0-11.0) Red Blood Count 4.65 x10^6/uL (4.30-5.70) Hemoglobin 14.1 g/dL (13.0-17.5) Hematocrit 42.5 % (39.0-53.0) Mean Corpuscular Volume 91 fL (79-100) Mean Corpuscular Hemoglobin 30 pg (25-35) Mean Corpuscular Hemoglobin Concent 33 g/dL (31-37) Red Cell Distribution Width 13.5 % (11.5-14.5) Platelet Count 369 x10^3/uL (140-400) Neutrophils (%) (Auto) 65 % (31-73) Lymphocytes (%) (Auto) 21 % (24-48) Monocytes (%) (Auto) 7 % (0-9) Eosinophils (%) (Auto) 6 % (0-3) Basophils (%) (Auto) 0 % (0-3) Neutrophils # (Auto) 9.2 x10^3uL (1.8-7.7) Lymphocytes # (Auto) 3.0 x10^3/uL (1.0-4.8) Monocytes # (Auto) 1.0 x10^3/uL (0.0-1.1) Eosinophils # (Auto) 0.9 x10^3/uL (0.0-0.7) Basophils # (Auto) 0.0 x10^3/uL (0.0-0.2) Sodium Level 140 mmol/L (136-145) Potassium Level 3.6 mmol/L (3.5-5.1) Chloride Level 103 mmol/L (98-107) Carbon Dioxide Level 24 mmol/L (21-32) Anion Gap 13 (6-14) Blood Urea Nitrogen 18 mg/dL (8-26) Creatinine 1.2 mg/dL (0.7-1.3) Estimated GFR (Cockcroft-Gault) 64.1 Glucose Level 107 mg/dL (70-99) Calcium Level 8.6 mg/dL (8.5-10.1) Micro BRONCH RES 1 Preliminary No growth in 56 - 72 hours. AFB CULTURE GRAM STAIN Final Negative Objective Assessment Acute hypoxic respiratory failure, on nasal O2. Diffuse infiltrates since Mar 04 2019 unresolving pneumonia treated with doxycycline and IV antibiotics from 03/17 through 03/20 at [facility] followed by cefepime from 03/20 through 03/27, readmitted with worsening symptoms and persistent infiltrates Now on IV vancomycin, Zosyn and Levaquin. - Sputum cultures from [facility] positive for yeast likely contaminant History of chronic obstructive pulmonary disease with asthma. Leukocytosis. on steroids Protein-calorie malnutrition. Plan Plan of Care Discont Zosyn begin augmentin cont Levaquin, Zyvox - wean soon Steroids Probiotics Cultures neg so far f/u urine legionella and strep pneum ag neg Supportive care Anticipating discharge home soon D/w D/w Dr. Sanabria encouraged Ambulation Attending Co-Sign Attending Co-Sign The patient was seen and interviewed as well as examined at the bedside. The chart was reviewed. The case was discussed. Agree with the plan of care. SHIVANI SINGH APRN Apr 05, 2019 12:11 OG FORD MD Apr 05, 2019 15:15
--- NOTE | 2019-04-05 12:31 | PDOC ---
PULMONARY PROGRESS NOTES Subjective less cough, no soa Vitals Vital Signs Date Time Temp Pulse Resp B/P (MAP) Pulse Ox O2 Delivery O2 Flow Rate FiO2 04/05/19 12:03 Nasal Cannula 2.0 04/05/19 12:00 20 94 04/05/19 11:00 99.8 133 128/74 (92) 99.8 ROS: No Chest Pain General: Alert, No acute distress Lungs: Crackles (bases, L> R) Cardiovascular: S1 Abdomen: Soft Neuro Exam: Alert Extremities: No Edema Skin: Warm Labs Laboratory Tests Test 04/03/19 17:00 04/05/19 04:45 Magnesium Level 2.4 mg/dL (1.8-2.4) Thyroid Stimulating Hormone (TSH) 1.160 uIU/mL (0.358-3.74) White Blood Count 14.1 x10^3/uL (4.0-11.0) Red Blood Count 4.65 x10^6/uL (4.30-5.70) Hemoglobin 14.1 g/dL (13.0-17.5) Hematocrit 42.5 % (39.0-53.0) Mean Corpuscular Volume 91 fL (79-100) Mean Corpuscular Hemoglobin 30 pg (25-35) Mean Corpuscular Hemoglobin Concent 33 g/dL (31-37) Red Cell Distribution Width 13.5 % (11.5-14.5) Platelet Count 369 x10^3/uL (140-400) Neutrophils (%) (Auto) 65 % (31-73) Lymphocytes (%) (Auto) 21 % (24-48) Monocytes (%) (Auto) 7 % (0-9) Eosinophils (%) (Auto) 6 % (0-3) Basophils (%) (Auto) 0 % (0-3) Neutrophils # (Auto) 9.2 x10^3uL (1.8-7.7) Lymphocytes # (Auto) 3.0 x10^3/uL (1.0-4.8) Monocytes # (Auto) 1.0 x10^3/uL (0.0-1.1) Eosinophils # (Auto) 0.9 x10^3/uL (0.0-0.7) Basophils # (Auto) 0.0 x10^3/uL (0.0-0.2) Sodium Level 140 mmol/L (136-145) Potassium Level 3.6 mmol/L (3.5-5.1) Chloride Level 103 mmol/L (98-107) Carbon Dioxide Level 24 mmol/L (21-32) Anion Gap 13 (6-14) Blood Urea Nitrogen 18 mg/dL (8-26) Creatinine 1.2 mg/dL (0.7-1.3) Estimated GFR (Cockcroft-Gault) 64.1 Glucose Level 107 mg/dL (70-99) Calcium Level 8.6 mg/dL (8.5-10.1) Laboratory Tests Test 04/05/19 04:45 White Blood Count 14.1 x10^3/uL (4.0-11.0) Red Blood Count 4.65 x10^6/uL (4.30-5.70) Hemoglobin 14.1 g/dL (13.0-17.5) Hematocrit 42.5 % (39.0-53.0) Mean Corpuscular Volume 91 fL (79-100) Mean Corpuscular Hemoglobin 30 pg (25-35) Mean Corpuscular Hemoglobin Concent 33 g/dL (31-37) Red Cell Distribution Width 13.5 % (11.5-14.5) Platelet Count 369 x10^3/uL (140-400) Neutrophils (%) (Auto) 65 % (31-73) Lymphocytes (%) (Auto) 21 % (24-48) Monocytes (%) (Auto) 7 % (0-9) Eosinophils (%) (Auto) 6 % (0-3) Basophils (%) (Auto) 0 % (0-3) Neutrophils # (Auto) 9.2 x10^3uL (1.8-7.7) Lymphocytes # (Auto) 3.0 x10^3/uL (1.0-4.8) Monocytes # (Auto) 1.0 x10^3/uL (0.0-1.1) Eosinophils # (Auto) 0.9 x10^3/uL (0.0-0.7) Basophils # (Auto) 0.0 x10^3/uL (0.0-0.2) Sodium Level 140 mmol/L (136-145) Potassium Level 3.6 mmol/L (3.5-5.1) Chloride Level 103 mmol/L (98-107) Carbon Dioxide Level 24 mmol/L (21-32) Anion Gap 13 (6-14) Blood Urea Nitrogen 18 mg/dL (8-26) Creatinine 1.2 mg/dL (0.7-1.3) Estimated GFR (Cockcroft-Gault) 64.1 Glucose Level 107 mg/dL (70-99) Calcium Level 8.6 mg/dL (8.5-10.1) Comments CXR 04/04 NO CHANGE IN INFILTRATES Impression . 1. The patient with progressive bilateral infiltrates along with emphysematous blebs and reactive adenopathy since the 15th of this month. He was hospitalized and treated with broad-spectrum antibiotics without any clinical improvement. His CTs have shown worsening infiltrates. The differential diagnosis could be broad. 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 Possibility of bronchiolitis obliterans organizing pneumonia would also be a consideration. S/P diagnostic bronchoscopy . NO PUR ULENT SECRETIONS, CULTURES NEG SO FAR 2. Underlying chronic obstructive pulmonary disease. 3. Underlying alcoholism, also may be contributing to recurrent pneumonias. Plan . 1. Continue with present broad-spectrum antibiotics. CHANGE TO PO PER ID 2. Obtain hypersensitivity pneumonitis panel as an outpatient. I have given prescription 3. S/P bronchoscopy . Follow cultures, neg so far 4. sedimentation rate. 67 5. Continue steroids , start tapering the dose. 3-4 weeks of taper 6. Follow Infectious Disease recommendations . All w/u neg so far. Legionella Ag, Pneumococcal Ag Neg 7. follow all Bronch cultures 8. repeat cxr 04/04 , no change, clinically better 9. Possible dc home by Saturday/ will need 6 min walk f/u with me in May with ct chest. If no improvement, may need lung bx DAMARI GOULD MD Apr 05, 2019 12:31
[2019-04-05 15:00] VITALS: BP 118/81
[2019-04-05 19:02] VITALS: BP 131/80
[2019-04-05] MEDS: LINEZOLID 600 MG TABLET PO SCH (21:13)
[2019-04-05] MEDS: traZODone 100 MG TABLET. PO PRN (21:13)
[2019-04-05] MEDS: AMOXICILLIN/K CLAV 875/125MG TABLET. PO SCH (21:13)
[2019-04-05 23:19] VITALS: BP 127/80
[2019-04-06 03:21] LABS: BASO # 0.1 x10^3/uL (0.0-0.2); BASO % 0 % (0-3); EOS # 0.7 x10^3/uL (0.0-0.7); EOS % 4 % (0-3); HEMATOCRIT 40.5 % (39.0-53.0); HEMOGLOBIN 13.7 g/dL (13.0-17.5); LYMPH # 2.2 x10^3/uL (1.0-4.8); LYMPH % 12 % (24-48); MEAN CORPUSCULAR HEMOGLOBIN 30 pg (25-35); MEAN CORPUSCULAR HGB CONC 34 g/dL (31-37); MEAN CORPUSCULAR VOLUME 89 fL (79-100); MONO # 1.2 x10^3/uL (0.0-1.1); MONO % 6 % (0-9); NEUT # 14.9 x10^3uL (1.8-7.7); NEUT % 78 % (31-73); PLATELET COUNT 329 x10^3/uL (140-400); RED BLOOD COUNT 4.54 x10^6/uL (4.30-5.70); RED CELL DISTRIBUTION WIDTH 13.2 % (11.5-14.5)
[2019-04-06 03:43] VITALS: BP 98/66
[2019-04-06 03:58] LABS: CALCIUM 8.4 mg/dL (8.5-10.1); CREATININE 1.1 mg/dL (0.7-1.3); GFR 70.9; POTASSIUM 3.6 mmol/L (3.5-5.1)
[2019-04-06 07:00] VITALS: BP 108/67
[2019-04-06 07:32] LABS: % BANDS 1 % (0-9); % EOS 1 % (0-5); % LYMPHS 8 % (24-48); % MONOS 3 % (0-10); % SEGS 87 % (35-66); PLT ESTIMATE ADEQUATE (ADEQUATE)
[2019-04-06] MEDS: LACTOBACILLUS RHAMNOSUS GG 1 CAPSULE. PO SCH (08:04)
[2019-04-06] MEDS: BENZONATATE 100 MG CAPSULE. PO SCH ×2 (08:04→15:39)
[2019-04-06] MEDS: MELOXICAM 7.5 MG TABLET PO SCH (08:04)
[2019-04-06] MEDS: LINEZOLID 600 MG TABLET PO SCH (08:04)
[2019-04-06] MEDS: PANTOPRAZOLE 40 MG TABLET.DR. PO SCH (08:04)
[2019-04-06] MEDS: AMOXICILLIN/K CLAV 875/125MG TABLET. PO SCH (08:04)
[2019-04-06] MEDS: CETIRIZINE HCL 10 MG TABLET. PO SCH (08:05)
[2019-04-06] MEDS: methylPREDNISolone SOD SUCC PF 125 MG/2 ML VIAL. IV SCH (08:05)
[2019-04-06] MEDS: traMADol 50 MG TABLET PO PRN (08:48)
[2019-04-06] MEDS: IPRATRPIUM/ALBUTEROL 0.5/2.5MG 3 ML NEBU. NEB SCH ×2 (08:54→11:43)
--- NOTE | 2019-04-06 09:16 | PDOC ---
Infectious Disease Note Subjective Subjective No fevers Feeling pretty good Remains on 2L O2 Some SOA with activities - better - currently ambulating in hallway after eval in room Denies CP/N/V/D ROS ROS o/w neg Vital Sign Vital Signs Vital Signs Date Time Temp Pulse Resp B/P (MAP) Pulse Ox O2 Delivery O2 Flow Rate FiO2 04/06/19 08:56 91 Nasal Cannula 2.5 04/06/19 08:48 16 04/06/19 07:00 99.1 129 108/67 (81) 99.1 Physical Exam PHYSICAL EXAM GENERAL: Sitting in the chair, alert. Ambulating well HEENT: Oral cavity clear NECK: Supple. LUNGS: Improved aeration - on 02 HEART: S1, S2. ABDOMEN: Soft EXTREMITIES: No edema, no cyanosis. DERMATOLOGIC: Warm, dry, no generalized rash. NEUROLOGIC: Alert, responding appropriately Labs Lab Laboratory Tests Test 04/06/19 03:00 White Blood Count 19.0 x10^3/uL (4.0-11.0) Red Blood Count 4.54 x10^6/uL (4.30-5.70) Hemoglobin 13.7 g/dL (13.0-17.5) Hematocrit 40.5 % (39.0-53.0) Mean Corpuscular Volume 89 fL (79-100) Mean Corpuscular Hemoglobin 30 pg (25-35) Mean Corpuscular Hemoglobin Concent 34 g/dL (31-37) Red Cell Distribution Width 13.2 % (11.5-14.5) Platelet Count 329 x10^3/uL (140-400) Neutrophils (%) (Auto) 78 % (31-73) Lymphocytes (%) (Auto) 12 % (24-48) Monocytes (%) (Auto) 6 % (0-9) Eosinophils (%) (Auto) 4 % (0-3) Basophils (%) (Auto) 0 % (0-3) Neutrophils # (Auto) 14.9 x10^3uL (1.8-7.7) Lymphocytes # (Auto) 2.2 x10^3/uL (1.0-4.8) Monocytes # (Auto) 1.2 x10^3/uL (0.0-1.1) Eosinophils # (Auto) 0.7 x10^3/uL (0.0-0.7) Basophils # (Auto) 0.1 x10^3/uL (0.0-0.2) Segmented Neutrophils % 87 % (35-66) Band Neutrophils % 1 % (0-9) Lymphocytes % 8 % (24-48) Monocytes % 3 % (0-10) Eosinophils % 1 % (0-5) Platelet Estimate Adequate (ADEQUATE) Sodium Level 139 mmol/L (136-145) Potassium Level 3.6 mmol/L (3.5-5.1) Chloride Level 102 mmol/L (98-107) Carbon Dioxide Level 26 mmol/L (21-32) Anion Gap 11 (6-14) Blood Urea Nitrogen 14 mg/dL (8-26) Creatinine 1.1 mg/dL (0.7-1.3) Estimated GFR (Cockcroft-Gault) 70.9 Glucose Level 127 mg/dL (70-99) Calcium Level 8.4 mg/dL (8.5-10.1) Micro Microbiology 04/02/19 AFB Specimen Processing Tissue - Final, Resulted 04/02/19 Acid Fast Bacilli Culture, Resulted Pending 04/02/19 Gram Stain - Final, Resulted 04/02/19 Fungal Culture, Resulted Pending 04/02/19 Fungal Culture Result 1, Resulted Pending Objective Assessment Acute hypoxic respiratory failure, on nasal O2. Diffuse infiltrates since Mar 04 2019 - ? sequale from viral infection/hypersensitivity -should not be atypical between doxy and levofloxacin unresolving pneumonia treated with doxycycline and IV antibiotics from 03/31 (Vanc/Zosyn) 03/17 through 03/20 at [facility] followed by cefepime from 03/20 through 03/27, readmitted with worsening symptoms and persistent infiltrates Now on zyvox, Augmentin, and Levaquin. - Sputum cultures from [facility] positive for yeast likely contaminant History of chronic obstructive pulmonary disease with asthma. Leukocytosis. on IV steroids Protein-calorie malnutrition. Plan Plan of Care augmentin/Zyvox for 3 more days - Rx - written Discont Levaquin, Steroids per Pulm Further outpatient w/u per Pulm including need for potential biopsy Probiotics Cultures neg so far Ok to d/c home from ID standpoint D/w nursing OG FORD MD Apr 06, 2019 09:16
--- NOTE | 2019-04-06 09:33 | PDOC ---
PULMONARY PROGRESS NOTES Subjective less cough, no soa Vitals Vital Signs Date Time Temp Pulse Resp B/P (MAP) Pulse Ox O2 Delivery O2 Flow Rate FiO2 04/06/19 08:56 91 Nasal Cannula 2.5 04/06/19 08:48 16 04/06/19 07:00 99.1 129 108/67 (81) 99.1 ROS: No Chest Pain General: Alert, No acute distress Lungs: Crackles (bases, L> R) Cardiovascular: S1 Abdomen: Soft Neuro Exam: Alert Extremities: No Edema Skin: Warm Labs Laboratory Tests Test 04/05/19 04:45 04/06/19 03:00 White Blood Count 14.1 x10^3/uL (4.0-11.0) 19.0 x10^3/uL (4.0-11.0) Red Blood Count 4.65 x10^6/uL (4.30-5.70) 4.54 x10^6/uL (4.30-5.70) Hemoglobin 14.1 g/dL (13.0-17.5) 13.7 g/dL (13.0-17.5) Hematocrit 42.5 % (39.0-53.0) 40.5 % (39.0-53.0) Mean Corpuscular Volume 91 fL (79-100) 89 fL (79-100) Mean Corpuscular Hemoglobin 30 pg (25-35) 30 pg (25-35) Mean Corpuscular Hemoglobin Concent 33 g/dL (31-37) 34 g/dL (31-37) Red Cell Distribution Width 13.5 % (11.5-14.5) 13.2 % (11.5-14.5) Platelet Count 369 x10^3/uL (140-400) 329 x10^3/uL (140-400) Neutrophils (%) (Auto) 65 % (31-73) 78 % (31-73) Lymphocytes (%) (Auto) 21 % (24-48) 12 % (24-48) Monocytes (%) (Auto) 7 % (0-9) 6 % (0-9) Eosinophils (%) (Auto) 6 % (0-3) 4 % (0-3) Basophils (%) (Auto) 0 % (0-3) 0 % (0-3) Neutrophils # (Auto) 9.2 x10^3uL (1.8-7.7) 14.9 x10^3uL (1.8-7.7) Lymphocytes # (Auto) 3.0 x10^3/uL (1.0-4.8) 2.2 x10^3/uL (1.0-4.8) Monocytes # (Auto) 1.0 x10^3/uL (0.0-1.1) 1.2 x10^3/uL (0.0-1.1) Eosinophils # (Auto) 0.9 x10^3/uL (0.0-0.7) 0.7 x10^3/uL (0.0-0.7) Basophils # (Auto) 0.0 x10^3/uL (0.0-0.2) 0.1 x10^3/uL (0.0-0.2) Sodium Level 140 mmol/L (136-145) 139 mmol/L (136-145) Potassium Level 3.6 mmol/L (3.5-5.1) 3.6 mmol/L (3.5-5.1) Chloride Level 103 mmol/L (98-107) 102 mmol/L (98-107) Carbon Dioxide Level 24 mmol/L (21-32) 26 mmol/L (21-32) Anion Gap 13 (6-14) 11 (6-14) Blood Urea Nitrogen 18 mg/dL (8-26) 14 mg/dL (8-26) Creatinine 1.2 mg/dL (0.7-1.3) 1.1 mg/dL (0.7-1.3) Estimated GFR (Cockcroft-Gault) 64.1 70.9 Glucose Level 107 mg/dL (70-99) 127 mg/dL (70-99) Calcium Level 8.6 mg/dL (8.5-10.1) 8.4 mg/dL (8.5-10.1) Segmented Neutrophils % 87 % (35-66) Band Neutrophils % 1 % (0-9) Lymphocytes % 8 % (24-48) Monocytes % 3 % (0-10) Eosinophils % 1 % (0-5) Platelet Estimate Adequate (ADEQUATE) Laboratory Tests Test 04/06/19 03:00 White Blood Count 19.0 x10^3/uL (4.0-11.0) Red Blood Count 4.54 x10^6/uL (4.30-5.70) Hemoglobin 13.7 g/dL (13.0-17.5) Hematocrit 40.5 % (39.0-53.0) Mean Corpuscular Volume 89 fL (79-100) Mean Corpuscular Hemoglobin 30 pg (25-35) Mean Corpuscular Hemoglobin Concent 34 g/dL (31-37) Red Cell Distribution Width 13.2 % (11.5-14.5) Platelet Count 329 x10^3/uL (140-400) Neutrophils (%) (Auto) 78 % (31-73) Lymphocytes (%) (Auto) 12 % (24-48) Monocytes (%) (Auto) 6 % (0-9) Eosinophils (%) (Auto) 4 % (0-3) Basophils (%) (Auto) 0 % (0-3) Neutrophils # (Auto) 14.9 x10^3uL (1.8-7.7) Lymphocytes # (Auto) 2.2 x10^3/uL (1.0-4.8) Monocytes # (Auto) 1.2 x10^3/uL (0.0-1.1) Eosinophils # (Auto) 0.7 x10^3/uL (0.0-0.7) Basophils # (Auto) 0.1 x10^3/uL (0.0-0.2) Segmented Neutrophils % 87 % (35-66) Band Neutrophils % 1 % (0-9) Lymphocytes % 8 % (24-48) Monocytes % 3 % (0-10) Eosinophils % 1 % (0-5) Platelet Estimate Adequate (ADEQUATE) Sodium Level 139 mmol/L (136-145) Potassium Level 3.6 mmol/L (3.5-5.1) Chloride Level 102 mmol/L (98-107) Carbon Dioxide Level 26 mmol/L (21-32) Anion Gap 11 (6-14) Blood Urea Nitrogen 14 mg/dL (8-26) Creatinine 1.1 mg/dL (0.7-1.3) Estimated GFR (Cockcroft-Gault) 70.9 Glucose Level 127 mg/dL (70-99) Calcium Level 8.4 mg/dL (8.5-10.1) Comments CXR 04/04 NO CHANGE IN INFILTRATES Impression . 1. The patient with progressive bilateral infiltrates along with emphysematous blebs and reactive adenopathy since the 15 of this month. He was hospitalized and treated with broad-spectrum antibiotics without any clinical improvement. His CTs have shown worsening infiltrates. The differential diagnosis could be broad. 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 Possibility of bronchiolitis obliterans organizing pneumonia would also be a consideration. S/P diagnostic bronchoscopy . NO PURULENT SECRETIONS, CULTURES NEG SO FAR 2. Underlying chronic obstructive pulmonary disease. 3. Underlying alcoholism, also may be contributing to recurrent pneumonias. Plan . D/C HOME FOLLOW UP WITH DR GOULD IN MAY WITH CT CHEST PRED 30MG TILL SEEN IN OFFICE ANTI BX PER ID D/W WITH AND PT SIDE EFFECTS OF PRED SUPPLEMENT VIT D AND CA SAMIR FLAHERTY MD Apr 06, 2019 09:33
[2019-04-06] MEDS: guaiFENesin/CODEINE 100mg/10mg 5 ML LIQUID PO SCH ×2 (09:58→15:39)
--- NOTE | 2019-04-06 10:36 | PDOC ---
[employer] PROGRESS NOTE Chief Complaint Chief Complaint 1. Acute hypoxic respiratory failure in an ex smoker-quit 2012 Differentials include, BOOP, hypersensitivity pneumonitis given 25 years of occupational hazard 2. Underlying COPD asthma type 3. ETOH ( 2 whiskey) 4. Bullae on CT chest [place] 5. Neg BC in [place] History of Present Illness History of Present Illness Patient seen and examined He is less tachypneic and tachycardic Discussed with his RN Vitals Vitals Vital Signs Date Time Temp Pulse Resp B/P (MAP) Pulse Ox O2 Delivery O2 Flow Rate FiO2 04/06/19 09:48 2.0 04/06/19 08:56 91 Nasal Cannula 04/06/19 08:48 16 04/06/19 07:00 99.1 129 108/67 (81) 99.1 Physical Exam Physical Exam GENERAL: Sitting in the chair, alert. Ambulating well HEENT: Oral cavity clear NECK: Supple. LUNGS: Improved aeration - on 02 HEART: S1, S2. ABDOMEN: Soft EXTREMITIES: No edema, no cyanosis. DERMATOLOGIC: Warm, dry, no generalized rash. NEUROLOGIC: Alert, responding appropriately General: Alert, Oriented X3, Cooperative, No acute distress Heart: Regular rate (SR/ ST), Normal S1, Normal S2 Lungs: Crackles (bases, L> R) Abdomen: Soft Extremities: No edema, Normal pulses Skin: No significant lesion Labs Labs: Laboratory Tests Test 04/06/19 03:00 White Blood Count 19.0 x10^3/uL (4.0-11.0) Red Blood Count 4.54 x10^6/uL (4.30-5.70) Hemoglobin 13.7 g/dL (13.0-17.5) Hematocrit 40.5 % (39.0-53.0) Mean Corpuscular Volume 89 fL (79-100) Mean Corpuscular Hemoglobin 30 pg (25-35) Mean Corpuscular Hemoglobin Concent 34 g/dL (31-37) Red Cell Distribution Width 13.2 % (11.5-14.5) Platelet Count 329 x10^3/uL (140-400) Neutrophils (%) (Auto) 78 % (31-73) Lymphocytes (%) (Auto) 12 % (24-48) Monocytes (%) (Auto) 6 % (0-9) Eosinophils (%) (Auto) 4 % (0-3) Basophils (%) (Auto) 0 % (0-3) Neutrophils # (Auto) 14.9 x10^3uL (1.8-7.7) Lymphocytes # (Auto) 2.2 x10^3/uL (1.0-4.8) Monocytes # (Auto) 1.2 x10^3/uL (0.0-1.1) Eosinophils # (Auto) 0.7 x10^3/uL (0.0-0.7) Basophils # (Auto) 0.1 x10^3/uL (0.0-0.2) Segmented Neutrophils % 87 % (35-66) Band Neutrophils % 1 % (0-9) Lymphocytes % 8 % (24-48) Monocytes % 3 % (0-10) Eosinophils % 1 % (0-5) Platelet Estimate Adequate (ADEQUATE) Sodium Level 139 mmol/L (136-145) Potassium Level 3.6 mmol/L (3.5-5.1) Chloride Level 102 mmol/L (98-107) Carbon Dioxide Level 26 mmol/L (21-32) Anion Gap 11 (6-14) Blood Urea Nitrogen 14 mg/dL (8-26) Creatinine 1.1 mg/dL (0.7-1.3) Estimated GFR (Cockcroft-Gault) 70.9 Glucose Level 127 mg/dL (70-99) Calcium Level 8.4 mg/dL (8.5-10.1) Assessment and Plan Assessmemt and Plan 1. Acute hypoxic respiratory failure in an ex smoker-quit 2012 Differentials include, BOOP, hypersensitivity pneumonitis given 25 years of occupational hazard 2. Underlying COPD asthma type 3. ETOH ( 2 whiskey) 4. Bullae on CT chest [place] 5. Neg BC in [place] Plan IV Zyvox, and Levaquin, Zosyn Nebs O2 Home meds DVT proph IV steroids Appreciate cards input Comment Review of Relevant I have reviewed the following items kim (where applicable) has been applied. Labs Laboratory Tests Test 04/05/19 04:45 04/06/19 03:00 White Blood Count 14.1 x10^3/uL (4.0-11.0) 19.0 x10^3/uL (4.0-11.0) Red Blood Count 4.65 x10^6/uL (4.30-5.70) 4.54 x10^6/uL (4.30-5.70) Hemoglobin 14.1 g/dL (13.0-17.5) 13.7 g/dL (13.0-17.5) Hematocrit 42.5 % (39.0-53.0) 40.5 % (39.0-53.0) Mean Corpuscular Volume 91 fL (79-100) 89 fL (79-100) Mean Corpuscular Hemoglobin 30 pg (25-35) 30 pg (25-35) Mean Corpuscular Hemoglobin Concent 33 g/dL (31-37) 34 g/dL (31-37) Red Cell Distribution Width 13.5 % (11.5-14.5) 13.2 % (11.5-14.5) Platelet Count 369 x10^3/uL (140-400) 329 x10^3/uL (140-400) Neutrophils (%) (Auto) 65 % (31-73) 78 % (31-73) Lymphocytes (%) (Auto) 21 % (24-48) 12 % (24-48) Monocytes (%) (Auto) 7 % (0-9) 6 % (0-9) Eosinophils (%) (Auto) 6 % (0-3) 4 % (0-3) Basophils (%) (Auto) 0 % (0-3) 0 % (0-3) Neutrophils # (Auto) 9.2 x10^3uL (1.8-7.7) 14.9 x10^3uL (1.8-7.7) Lymphocytes # (Auto) 3.0 x10^3/uL (1.0-4.8) 2.2 x10^3/uL (1.0-4.8) Monocytes # (Auto) 1.0 x10^3/uL (0.0-1.1) 1.2 x10^3/uL (0.0-1.1) Eosinophils # (Auto) 0.9 x10^3/uL (0.0-0.7) 0.7 x10^3/uL (0.0-0.7) Basophils # (Auto) 0.0 x10^3/uL (0.0-0.2) 0.1 x10^3/uL (0.0-0.2) Sodium Level 140 mmol/L (136-145) 139 mmol/L (136-145) Potassium Level 3.6 mmol/L (3.5-5.1) 3.6 mmol/L (3.5-5.1) Chloride Level 103 mmol/L (98-107) 102 mmol/L (98-107) Carbon Dioxide Level 24 mmol/L (21-32) 26 mmol/L (21-32) Anion Gap 13 (6-14) 11 (6-14) Blood Urea Nitrogen 18 mg/dL (8-26) 14 mg/dL (8-26) Creatinine 1.2 mg/dL (0.7-1.3) 1.1 mg/dL (0.7-1.3) Estimated GFR (Cockcroft-Gault) 64.1 70.9 Glucose Level 107 mg/dL (70-99) 127 mg/dL (70-99) Calcium Level 8.6 mg/dL (8.5-10.1) 8.4 mg/dL (8.5-10.1) Segmented Neutrophils % 87 % (35-66) Band Neutrophils % 1 % (0-9) Lymphocytes % 8 % (24-48) Monocytes % 3 % (0-10) Eosinophils % 1 % (0-5) Platelet Estimate Adequate (ADEQUATE) Laboratory Tests Test 04/06/19 03:00 White Blood Count 19.0 x10^3/uL (4.0-11.0) Red Blood Count 4.54 x10^6/uL (4.30-5.70) Hemoglobin 13.7 g/dL (13.0-17.5) Hematocrit 40.5 % (39.0-53.0) Mean Corpuscular Volume 89 fL (79-100) Mean Corpuscular Hemoglobin 30 pg (25-35) Mean Corpuscular Hemoglobin Concent 34 g/dL (31-37) Red Cell Distribution Width 13.2 % (11.5-14.5) Platelet Count 329 x10^3/uL (140-400) Neutrophils (%) (Auto) 78 % (31-73) Lymphocytes (%) (Auto) 12 % (24-48) Monocytes (%) (Auto) 6 % (0-9) Eosinophils (%) (Auto) 4 % (0-3) Basophils (%) (Auto) 0 % (0-3) Neutrophils # (Auto) 14.9 x10^3uL (1.8-7.7) Lymphocytes # (Auto) 2.2 x10^3/uL (1.0-4.8) Monocytes # (Auto) 1.2 x10^3/uL (0.0-1.1) Eosinophils # (Auto) 0.7 x10^3/uL (0.0-0.7) Basophils # (Auto) 0.1 x10^3/uL (0.0-0.2) Segmented Neutrophils % 87 % (35-66) Band Neutrophils % 1 % (0-9) Lymphocytes % 8 % (24-48) Monocytes % 3 % (0-10) Eosinophils % 1 % (0-5) Platelet Estimate Adequate (ADEQUATE) Sodium Level 139 mmol/L (136-145) Potassium Level 3.6 mmol/L (3.5-5.1) Chloride Level 102 mmol/L (98-107) Carbon Dioxide Level 26 mmol/L (21-32) Anion Gap 11 (6-14) Blood Urea Nitrogen 14 mg/dL (8-26) Creatinine 1.1 mg/dL (0.7-1.3) Estimated GFR (Cockcroft-Gault) 70.9 Glucose Level 127 mg/dL (70-99) Calcium Level 8.4 mg/dL (8.5-10.1) Microbiology 04/02/19 AFB Specimen Processing Tissue - Final, Resulted 04/02/19 Acid Fast Bacilli Culture, Resulted Pending 04/02/19 Gram Stain - Final, Resulted 04/02/19 Fungal Culture, Resulted Pending 04/02/19 Fungal Culture Result 1, Resulted Pending Medications Current Medications Acetaminophen (Tylenol) 650 mg PRN Q6HRS PRN PO MILD PAIN 1-3 Last administered on 04/05/19at 11:58; Start 03/31/19 at 15:30 Albuterol Sulfate (Ventolin Neb Soln) 2.5 mg PRN Q4HRS PRN NEB SHORTNESS OF BREATH; Start 03/31/19 at 15:30 Benzonatate (Tessalon Perle) 100 mg PRN TID PRN PO cough 1ST CHOICE Last administered on 04/01/19at 21:33; Start 03/31/19 at 15:30; Stop 04/02/19 at 17:21; Status DC Cetirizine HCl (ZyrTEC) 5 mg DAILY PO Last administered on 04/06/19 08:05; Start 04/01/19 at 09:00 Heparin Sodium (Porcine) (Heparin Sodium) 5,000 unit Q8HRS SQ Last administered on 03/31/19at 18:00; Start 03/31/19 at 16:00; Stop 03/31/19 at 18:22; Status DC Albuterol/ Ipratropium (Duoneb) 3 ml RTQID NEB ; Start 03/31/19 at 16:00; Stop 03/31/19 at 16:23; Status DC Lactobacillus Rhamnosus (Culturelle) 1 cap BID PO Last administered on 04/06/19 08:04; Start 03/31/19 at 21:00 Meloxicam (Mobic) 7.5 mg DAILY PO Last administered on 04/06/19 08:04; Start 04/01/19 at 09:00 Methocarbamol (Robaxin) 500 mg PRN Q8HRS PRN PO MUSCLE SPASMS; Start 03/31/19 at 15:30 Ondansetron HCl (Zofran) 4 mg PRN Q8HRS PRN IV NAUSEA/VOMITING Last administered on 04/01/19at 18:15; Start 03/31/19 at 15:30 Pantoprazole Sodium (Protonix) 40 mg DAILYAC PO Last administered on 04/06/19 08:04; Start 03/31/19 at 16:30 Piperacillin Sod/ Tazobactam Sod (Zosyn Per Pharmacy) 1 each PRN DAILY PRN MC SEE COMMENTS; Start 03/31/19 at 15:30; Stop 04/05/19 at 15:15; Status DC Pseudoephedrine HCl (Sudafed 12-Hour) 120 mg PRN QHS PRN PO NASAL CONGESTION; Start 03/31/19 at 15:30 Vancomycin HCl (Vanco Per Pharmacy) 1 each PRN DAILY PRN MC SEE COMMENTS Last administered on 04/01/19at 09:39; Start 03/31/19 at 15:30; Stop 04/01/19 at 09:54; Status DC Guaifenesin (Mucinex) 600 mg BID PO Last administered on 04/02/19 15:02; Start 03/31/19 at 21:00; Stop 04/02/19 at 17:21; Status DC Methylprednisolone Sodium Succinate (SOLU-Medrol 125MG VIAL) 60 mg [id number] IV Last administered on 04/04/19 07:50; Start 03/31/19 at 18:00; Stop 04/04/19 at 10:55; Status DC Tramadol HCl (Ultram) 100 mg PRN Q6HRS PRN PO MODERATE PAIN Last administered on 04/06/19 08:48; Start 03/31/19 at 15:30 Trazodone HCl (Desyrel) 200 mg PRN QHS PRN PO INSOMNIA Last administered on 04/05/19 21:13; Start 03/31/19 at 15:30 Piperacillin Sod/ Tazobactam Sod 4.5 gm/Sodium Chloride 100 ml @ 200 mls/hr Q6HRS IV Last administered on 04/05/19 11:58; Start 03/31/19 at 18:00; Stop 04/05/19 at 15:15; Status DC Vancomycin HCl 1.5 gm/Sodium Chloride 500 ml @ 250 mls/hr Q8H IV Last administ ered on 04/01/19at 05:39; Start 03/31/19 at 21:00; Stop 04/01/19 at 09:53; Status DC Albuterol/ Ipratropium (Duoneb) 3 ml Q4HRS W/A NEB Last administered on 04/06/19 08:54; Start 03/31/19 at 18:00 Guaifenesin/ Codeine Phosphate (Robitussin Ac) 10 ml PRN Q6HRS PRN PO COUGH 2ND CHOICE Last administered on 04/01/19 21:33; Start 03/31/19 at 16:45; Stop 04/02/19 at 17:21; Status DC Levofloxacin (Levaquin) 750 mg 1X ONCE PO Last administered on 03/31/19at 22:04; Start 03/31/19 at 18:15; Stop 03/31/19 at 18:16; Status DC Levofloxacin (Levaquin) 750 mg DAILY16 PO Last administered on 04/05/19 16:07; Start 04/01/19 at 16:00; Stop 04/06/19 at 09:47; Status DC Enoxaparin Sodium (Lovenox Per Pharmacy Prophylaxis Dosing) 1 each PRN DAILY PRN MC SEE COMMENTS; Start 03/31/19 at 18:15; Stop 04/01/19 at 09:29; Status DC Enoxaparin Sodium (Lovenox Per Pharmacy Prophylaxis Dosing) 1 each PRN DAILY PRN MC SEE COMMENTS; Start 03/31/19 at 18:45; Status UNV Enoxaparin Sodium (Lovenox 40mg Syringe) 40 mg Q24H SQ Last administered on 03/31/19at 22:05; Start 03/31/19 at 20:00; Stop 04/01/19 at 09:07; Status DC Potassium Chloride (Klor-Con) 40 meq 1X ONCE PO Last administered on 04/01/19at 11:20; Start 04/01/19 at 10:00; Stop 04/01/19 at 10:01; Status DC Linezolid (Zyvox) 600 mg BID PO Last administered on 04/04/19at 08:11; Start 04/01/19 at 10:30; Stop 04/04/19 at 20:58; Status DC Doxycycline Hyclate (Vibra-Tab) 100 mg BID PO ; Start 04/01/19 at 10:30; Stop 04/01/19 at 10:30; Status DC Ringer's Solution 1,000 ml @ 50 mls/hr Q20H IV ; Start 04/02/19 at 07:00; Stop 04/02/19 at 18:59; Status DC Midazolam HCl (Versed) 2 mg PRN 1X PRN IV PRIOR TO PROCEDURE; Start 04/02/19 at 06:30; Stop 04/03/19 at 06:29; Status DC Fentanyl Citrate (Fentanyl 2ml Vial) 25 mcg PRN Q5MIN PRN IV X 2 DOSES FOR PAIN; Start 04/02/19 at 06:30; Stop 04/03/19 at 06:29; Status DC Fentanyl Citrate (Fentanyl 2ml Vial) 50 mcg PRN Q5MIN PRN IV X 2 DOSES FOR PAIN; Start 04/02/19 at 06:30; Stop 04/03/19 at 06:29; Status DC Ringer's Solution 1,000 ml @ 125 mls/hr Q8H IV Last administered on 04/02/19at 11:08; Start 04/02/19 at 06:30; Stop 04/02/19 at 06:31; Status DC Lidocaine HCl (Xylocaine-Mpf 1% 2ml Vial) 2 ml 1X PRN PRN ID IV START; Start 04/02/19 at 06:30; Stop 04/03/19 at 06:29; Status DC Lidocaine HCl (Lidocaine 2% Viscous) 100 ml PRN 1X PRN MM MOUTH PAIN Last administered on 04/02/19at 10:55; Start 04/02/19 at 08:45; Stop 04/03/19 at 08:44; Status DC Lidocaine HCl (Lidocaine 1% 20ml Vial) 20 ml PRN 1X PRN INJ SEE COMMENTS Last administered on 04/02/19at 10:56; Start 04/02/19 at 08:45; Stop 04/03/19 at 08:44; Status DC Epinephrine HCl (Adrenalin) 1 mg PRN 1X PRN INJ SEE COMMENTS; Start 04/02/19 at 08:45; Stop 04/03/19 at 08:44; Status DC Lidocaine HCl 50 ml PRN 1X PRN MM SEE COMMENTS Last administered on 04/02/19at 10:55; Start 04/02/19 at 08:45; Stop 04/03/19 at 08:44; Status DC Epinephrine HCl (Adrenalin) 1 mg STK-MED ONCE .ROUTE ; Start 04/02/19 at 09:15; Stop 04/02/19 at 09:16; Status DC Lidocaine HCl (Lidocaine 1% 20ml Vial) 20 ml STK-MED ONCE .ROUTE ; Start 04/02/19 at 09:15; Stop 04/02/19 at 09:16; Status DC Lidocaine HCl (Lidocaine 2% Viscous) 100 ml STK-MED ONCE .ROUTE ; Start 04/02/19 at 09:15; Stop 04/02/19 at 09:16; Status DC Lidocaine HCl 50 ml STK-MED ONCE .ROUTE ; Start 04/02/19 at 09:15; Stop 04/02/19 at 09:16; Status DC Propofol 40 ml @ As Directed STK-MED ONCE IV ; Start 04/02/19 at 11:30; Stop 04/02/19 at 11:31; Status DC Lidocaine HCl (Lidocaine Pf 2% Vial) 5 ml STK-MED ONCE .ROUTE ; Start 04/02/19 at 11:30; Stop 04/02/19 at 11:31; Status DC Benzonatate (Tessalon Perle) 100 mg TID PO Last administered on 04/06/19 08:04; Start 04/02/19 at 18:00 Guaifenesin/ Codeine Phosphate (Robitussin Ac) 10 ml TID PO Last administered on 04/06/19 09:58; Start 04/02/19 at 18:00 Potassium Chloride (Klor-Con) 20 meq 1X ONCE PO Last administered on 04/03/19at 16:51; Start 04/03/19 at 16:45; Stop 04/03/19 at 16:46; Status DC Methylprednisolone Sodium Succinate (SOLU-Medrol 125MG VIAL) 60 mg DAILY IV Last administered on 04/06/19at 08:05; Start 04/05/19 at 09:00 Linezolid (Zyvox) 600 mg BID PO Last administered on 04/06/19 08:04; Start 04/05/19 at 21:00 Linezolid/Dextrose 300 ml @ 300 mls/hr Q12HR IV Last administered on 04/05/19at 08:46; Start 04/04/19 at 21:00; Stop 04/05/19 at 09:59; Status DC Multi-Ingredient Mouthwash/Gargle (Gi Cocktail) 20 ml PRN Q4HRS PRN PO CHEST PAIN; Start 04/05/19 at 00:45; Status UNV Multi-Ingredient Mouthwash/Gargle (Gi Cocktail) 20 ml PRN QID PRN PO CHEST PAIN Last administered on 04/05/19at 01:03; Start 04/05/19 at 00:45 Amoxicillin/ Clavulanate Potassium (Augmentin 875/ 125mg) 1 tab BID PO Last administered on 04/06/19at 08:04; Start 04/05/19 at 21:00 Vitals/I & O Vital Sign - Last 24 Hours 04/05/19 04/05/19 04/05/19 04/05/19 11:00 12:00 12:03 13:00 Temp 99.8 99.8 Pulse 133 Resp 16 20 20 B/P (MAP) 128/74 (92) Pulse Ox 91 94 O2 Delivery Nasal Cannula Nasal Cannula Nasal Cannula O2 Flow Rate 2.0 2.0 2.0 04/05/19 04/05/19 04/05/19 04/05/19 15:00 16:19 19:02 19:48 Temp 98.5 98.8 98.5 98.8 Pulse 116 132 Resp 16 18 B/P (MAP) 118/81 (93) 131/80 (97) Pulse Ox 93 94 93 O2 Delivery Nasal Cannula Nasal Cannula Nasal Cannula Nasal Cannula O2 Flow Rate 2.0 2.0 2.0 2.5 04/05/19 04/05/19 04/05/19 04/05/19 20:00 21:13 22:13 23:19 Temp 99.8 99.8 Pulse 138 Resp 20 B/P (MAP) 127/80 (96) Pulse Ox 93 94 94 O2 Delivery Nasal Cannula Nasal Cannula Nasal Cannula Nasal Cannula O2 Flow Rate 2.0 2.5 2.0 04/06/19 04/06/19 04/06/19 04/06/19 03:43 07:00 08:00 08:48 Temp 98.6 99.1 98.6 99.1 Pulse 131 129 Resp 18 24 16 B/P (MAP) 98/66 (77) 108/67 (81) Pulse Ox 91 91 O2 Delivery Nasal Cannula Nasal Cannula Nasal Cannula Nasal Cannula O2 Flow Rate 2.0 2.0 2.0 04/06/19 04/06/19 08:56 09:48 Pulse Ox 91 O2 Delivery Nasal Cannula O2 Flow Rate 2.5 2.0 Intake and Output 04/05/19 04/05/19 04/06/19 14:59 22:59 06:59 Intake Total 350 ml 550 ml 400 ml Balance 350 ml 550 ml 400 ml CASTLE,NIAL K III DO Apr 06, 2019 10:36
[2019-04-06 11:16] VITALS: BP 111/66
[2019-04-06 15:00] VITALS: BP 128/83
--- NOTE | 2019-04-06 15:38 | NUR ---
SW following for discharge planning. Discussed with RN, pt is from home with . Pt had 6 minute walk and required oxygen for home. SW spoke with pt's , Billie about agency preference, they would like [facility]. SW phoned and faxed referral to [facility]. Pt has a tank from [facility] to take home and will contact [facility] when they get home to have more tanks delivered. RN notified. No further SW needs.
--- NOTE | 2019-04-06 15:49 | NUR ---
Discharge Note: LILO HYATT S [address] [place] [address] Discharge instructions and discharge home medications reviewed with Patient and a copy given. All questions have been answered and understanding verbalized. The following instructions and handouts were given: Home O2 with tank, Pneumonia, paper scripts, f\u with PCP and Dr. Sanabria on May 28 Discontinued lines and drains: 1 x PIV removed, tip intact Patient discharged to home with spouse
--- NOTE | 2019-04-06 16:09 | PATHOLOGY ---
Note [facility] Accession Number: [id number] TESTS RESULT FLAG UNITS REF RANGE LAB Clinician Provided Cytology Information No. of containers..01 Other (Miscellaneous) Source: RUL RLL LLL BAL MIXD DIAGNOSIS: RUL RLL LLL BAL MIXD NEGATIVE FOR MALIGNANT CELLS. NORMAL BRONCHIAL CELLS AND MACROPHAGES ARE PRESENT. SILVER METHENAMINE STAINED SMEARS ARE NEGATIVE FOR PNEUMOCYSTIS JIROVECI. NO FUNGAL ORGANISMS ARE PRESENT. Signed out by: 02 Twin Peter MD, Pathologist NPI- [id number] Performed by: Salome Taylor, Licensed Electrician ([facility]) Gross description: 01 10ML, COLORLESS, CLOUDY /LCS FLAG LEGEND: L-Low Normal,H-High Normal,LL-Alert Low,HH-Alert High <-Panic Low,>-Panic High,A-Abnormal,AA-Critical Abnormal Performed at: [place] [facility] [place] [address] [place] [address] Saúl Dinh MD, 02 Y[place] [facility] [address] [place] [address] Thierry Amaral MD, Specimen Comment: A courtesy copy of this report has been sent to Specimen Comment: [phone], . Specimen Comment: Report sent to / DR MARTINS Specimen Comment: A duplicate report has been generated due to demographic updates. Performed at: 01 [facility] [id number] [facility] [address], [place], [place] [id number] MD Saúl Dinh MD Phone: [phone]
--- NOTE | 2019-04-06 19:13 | DS ---
DATE OF DISCHARGE: 04/06/2019 ADMISSION DIAGNOSES: Respiratory failure with pneumonia and chronic obstructive pulmonary disease, hypoxia. DISCHARGE DIAGNOSIS: Resolving respiratory failure. CONSULTS: Pulmonary, Cardiology and Infectious Disease. PROCEDURES: Bronchoscopy with bronchoalveolar lavage. HOSPITAL COURSE: The patient is a pleasant middle-aged male who basically presented with respiratory failure, was multifactorial including COPD and probable bacterial pneumonia. We treated the patient with broad spectrum antibiotics. The above consults were obtained. He did undergo bronchoscopy and over the past week, he slowly improved, although he is still somewhat sick. I saw him and examined him this morning, he was up in the chair and doing a little better. I discussed the case with the nurse. The other consultants have seen him now and have left prescriptions. We plan to discharge to home with close outpatient followup. DISPOSITION: Home. ACTIVITY: As tolerated. DIET: Low sodium. MEDICATIONS: We are sending him home with p.o. antibiotics and oxygen. He is going to follow up with Dr. Sanabria in May for a CT of the chest and we will send him with a prednisone taper as well and antibiotics including Zyvox and Augmentin. Total time 33 minutes. CALEB CHAVEZ DO DR: PURNIMA/yanique JOB#: [id number] / [id number]
== END 2019-04-06 16:00 | disposition home or self-care (01) | DRG 871 ==
LOC: 6 SOUTH 14:42
PROVIDERS: ADMIT Internal Medicine; ATTEND Internal Medicine
PROC: 0B9C8ZX Drainage of Right Upper Lung Lobe, Via Natural or Artificial Opening Endoscopic, Diagnostic (ICD-10-PCS; 2019-04-02)
PROC: 0B9F8ZX Drainage of Right Lower Lung Lobe, Via Natural or Artificial Opening Endoscopic, Diagnostic (ICD-10-PCS; 2019-04-02)
PROC: 0B9J8ZX Drainage of Left Lower Lung Lobe, Via Natural or Artificial Opening Endoscopic, Diagnostic (ICD-10-PCS; principal; 2019-04-02 11:30)
DX: A41.9 Sepsis, unspecified organism (principal); J96.01 Acute respiratory failure with hypoxia; J15.9 Unspecified bacterial pneumonia; E46 Unspecified protein-calorie malnutrition; J44.0 Chronic obstructive pulmonary disease with (acute) lower respiratory infection; J44.1 Chronic obstructive pulmonary disease with (acute) exacerbation; D64.9 Anemia, unspecified; E87.6 Hypokalemia; F41.9 Anxiety disorder, unspecified; F10.20 Alcohol dependence, uncomplicated; J20.9 Acute bronchitis, unspecified; G89.29 Other chronic pain; Z82.49 Family history of ischemic heart disease and other diseases of the circulatory system; Z87.891 Personal history of nicotine dependence; Z87.01 Personal history of pneumonia (recurrent); Z88.8 Allergy status to other drugs, medicaments and biological substances; Z79.899 Other long term (current) drug therapy; Z68.27 Body mass index [BMI] 27.0-27.9, adult
CPT/HCPCS: 31622; 36415; 71045; 80048; 80053; 82565; 83735; 84443; 85007; 85025; 85651; 87070; 87102; 87116; 87205; 87449; 88112; 88313; 94618; 94640; 94760; J1644; J1650; J2001; J2020; J2405; J2543; J2704; J2930; J3370; J7040; J7120; J7620

== ENCOUNTER → 2019-05-27 | Outpatient (CLI) | payer BC ==
--- NOTE | 2019-05-25 17:40 | RAD ---
CT study of the chest without contrast Clinical indications: Interstitial lung disease. History of pneumonia. COMPARISON: March 29, 2019 performed at [facility]. TECHNIQUE: Noncontrast helical CT scanning of the chest was performed. Without contrast, the sensitivity to detect organ pathology is decreased. PQRS compliance Statement One or more of the following individualized dose reduction techniques were utilized for this study: 1. Automated exposure control 2. Adjustment of the mA and/or kV according to patient size 3. Use of iterative reconstruction technique FINDINGS: Again seen is mediastinal lymphadenopathy which is stable. Evaluation for hilar lymphadenopathy is difficult without IV contrast. No enlarged axillary lymphadenopathy is seen. No focal aneurysmal dilatation of the thoracic aorta is seen. The heart size is normal and no pericardial effusion is seen. No adrenal mass is seen. Diffuse groundglass lung infiltrates are seen along with multiple air-filled cystic spaces bilaterally. This has been seen previously. More consolidative infiltrate was present within the posterior segment of the right upper lobe adjacent to the major fissure on the previous study. This has improved. The other centrilobular consolidative infiltrates seen within both lower lobes and the lingula of the left upper lobe and anterior and posterior segments of the left and right upper lobes have significantly improved. There is a new finding of consolidative lung infiltrates within the right middle lobe with bronchitis. There is dilatation of bronchi within the periphery of the right middle lobe consistent with bronchiectasis. Therefore, lung infiltrates and cystic airspaces are typically seen with distal airway infectious or inflammatory disease. No pleural effusion or pneumothorax is seen. No lytic process is seen. IMPRESSION: Improvement in bilateral lung infiltrates since the previous study. However, there are new consolidative infiltrates seen within the right middle lobe. The centrilobular position of these lung infiltrates and the cystic air-filled spaces are typically seen with distal airway infectious or inflammatory disease. Stable reactive mediastinal lymphadenopathy. Electronically signed by: Ángel Daniels MD (05/25/2019 5:37 PM) [id number]
== END | disposition home or self-care (01) ==
LOC: CT 14:45
PROVIDERS: ATTEND Internal Medicine Critical Care Medicine
DX: J47.9 Bronchiectasis, uncomplicated (principal); R91.8 Other nonspecific abnormal finding of lung field; R59.0 Localized enlarged lymph nodes; J43.9 Emphysema, unspecified
CPT/HCPCS: 71250

== ENCOUNTER → 2019-09-29 | Outpatient (CLI) | payer BC ==
[2019-09-30 10:11] LABS: C3 COMPLEMENT 116 mg/dL (82-167); C4 COMPLEMENT 13 mg/dL (14-44)
[2019-09-30 13:12] LABS: ANTI-DS DNA <1 IU/mL (0-9)
[2019-09-30 21:07] LABS: ALDOLASE 5.1 U/L (3.3-10.3)
== END | disposition home or self-care (01) ==
LOC: LAB 12:39
PROVIDERS: ATTEND Internal Medicine Critical Care Medicine
DX: J84.9 Interstitial pulmonary disease, unspecified (principal)
CPT/HCPCS: 36415; 82085; 82550; 86160; 86235; 87801